=== PATIENT | female | born 1935 | race Caucasian/White ===

== ENCOUNTER 2016-04-12 01:43 | Inpatient (IN) | payer MEDICARE ==
[2016-04-12] VITALS (13 sets, daily range): BP systolic 107–156; BP diastolic 51–77; PULSE 81–100; RESP 12–20; TEMP 96.8–98.6; O2SAT 88–100
[~2016-04-12 01:43] MED LIST: AMIO200 PO; ESCI10TA PO; HYDR12.56 PO; K-TA10TA5 PO; LANO0.1212 PO; LEVO.15 PO; OMEP20TA PO; SIMV40TA PO; SOMA250T PO; SUCR1S PO; TEMA15CA PO; ULTR50TA PO; WARF-60 PO
[2016-04-12] MEDS ORDERED: TEMA30CA PO (02:24)
[2016-04-12] MEDS ORDERED: AMIO0.1T PO (02:24)
[2016-04-12] MEDS ORDERED: TRAM50TA PO (02:24)
[2016-04-12] MEDS ORDERED: ESCI20TA PO (02:24)
[2016-04-12] MEDS ORDERED: POTA10CA PO (02:24)
[2016-04-12] MEDS ORDERED: DIGO1TAB59 PO (02:24)
[2016-04-12] MEDS ORDERED: WARF-23 PO (02:24)
[2016-04-12] MEDS ORDERED: SIMV40TA PO (02:24)
[2016-04-12] MEDS ORDERED: SOMA350T PO ×2 (02:24)
[2016-04-12] MEDS ORDERED: LEVO.15 PO (02:24)
[2016-04-12] MEDS ORDERED: OMEP20TA PO (02:24)
[2016-04-12] MEDS ORDERED: SUCR1TAB PO (02:24)
[2016-04-12] MEDS ORDERED: WARF4TAB52 PO (02:24)
[2016-04-12] MEDS ORDERED: SODIUM CHLORIDE 0.9% FLUSH 5 ML FLUSH IVF PRN (02:45)
--- NOTE | 2016-04-12 03:14 | RADRPT ---
EXAM DATE/TIME: 04/12/2016 02:57 [facility] COMPARISON: CHEST SINGLE AP, March 17, 2013, 11:04. INDICATIONS : Chest pain. MEDICAL HISTORY : None. SURGICAL HISTORY : None. ENCOUNTER: Initial ACUITY: 1 day PAIN SCORE: 4/10 LOCATION: chest FINDINGS: A single view of the chest demonstrates the lungs to be symmetrically aerated without evidence of mas s, infiltrate or effusion. The cardiomediastinal contours are unremarkable. Opacity in the retrocar diac region midline characteristic of a hiatus hernia, stable. Vertebroplasty cement at 2 levels in the thoracolumbar region.. CONCLUSION: The lungs are clear. Davion Elias MD on April 12, 2016 at 3:12 Board Certified Radiologist. This report was verified electronically.
[2016-04-12 03:28] LABS: AUTOMATED NEUTROPHIL # 6.9 TH/MM3 (1.8-7.7); BASOPHIL % 0.2 % (0.0-2.0); EOSINOPHIL # 0.1 TH/MM3 (0-0.4); EOSINOPHIL % 0.5 % (0.0-4.0); LYMPH % 21.4 % (9.0-44.0); LYMPHOCYTE # 2.2 TH/MM3 (1.0-4.8); MEAN CELL VOLUME 87.4 FL (80.0-100.0); MEAN CORPUSCULAR HEMOGLOBIN 29.5 PG (27.0-34.0); MEAN CORPUSCULAR HGB CONC 33.7 % (32.0-36.0); MONO % 11.4 % (0.0-8.0); NEUT % 66.5 % (16.0-70.0); PLATELET COUNT 297 TH/MM3 (150-450); RED BLOOD COUNT 3.09 MIL/MM3 (4.00-5.30); RED CELL DISTRIBUTION WIDTH 15.3 % (11.6-17.2); WHITE BLOOD COUNT 10.4 TH/MM3 (4.0-11.0)
[2016-04-12 03:30] LABS: HEMO FLAGS AUTO DIFF
[2016-04-12 03:40] LABS: APTT (PATIENT) 49.7 SEC (24.3-30.1); PROTHROMBIN TIME - PATIENT 46.4 SEC (9.8-11.6)
[2016-04-12 03:55] LABS: ALKALINE PHOSPHATASE 57 U/L (45-117); CREATINE KINASE 489 U/L (26-192); TOTAL BILIRUBIN ADULT 0.6 MG/DL (0.2-1.0)
[2016-04-12 03:58] LABS: BLOOD, URINE NEG (NEG); COMMENT (UR) CATH-CULT NOT IND; CULTURE IF INDICATED CATH CULTURE NOT IND; GLUCOSE,URINE NEG (NEG); KETONE, URINE NEG (NEG); NITRITE,URINE NEG (NEG); URINE COLOR YELLOW (YELLW/STRAW)
[2016-04-12 03:59] LABS: ACETAMINOPHEN LESS THAN 2.0 MCG/ML (10.0-30.0); ALT (GPT) 34 U/L (10-53); ANION GAP 8 MEQ/L (5-15); AST (GOT) 42 U/L (15-37); BICARBONATE 23.9 MEQ/L (21.0-32.0); BLOOD UREA NITROGEN 12 MG/DL (7-18); CHLORIDE 99 MEQ/L (98-107); GLOMERULAR FILTRATION RATE 77 ML/MIN (>89); SODIUM (NA) 131 MEQ/L (136-145)
[2016-04-12 04:00] LABS: BANDS 5 % (0-6); DOHLE BODIES PRESENT (NONE SEEN); METAMYELOCYTES 7 % (0-1); NEUTROPHIL # MANUAL DIFF 7.7 TH/MM3 (1.8-7.7); PLATELET ESTIMATE SMEAR NORMAL (NORMAL); PLATELET MORPHOLOGY NORMAL (NORMAL); POLYS (SEG NEUTROPHILS) 62 % (16-70); SCAN/DIFF FINAL DIFF MANUAL; TOXIC GRANULATION 1+ (NORMAL); WBC DIFF SAMPLE 100
[2016-04-12 04:01] LABS: AMPHETAMINE, URINE NEG (NEG); BARBITURATES, URINE NEG (NEG); COCAINE, URINE NEG (NEG)
[2016-04-12 04:02] LABS: POTASSIUM 3.7 MEQ/L (3.5-5.1)
[2016-04-12 04:07] LABS: CKMB 1.1 NG/ML (0.5-3.6)
--- NOTE | 2016-04-12 04:34 | PD ---
HPI Chief Complaint: Cold / Flu Symptoms Time Seen by Provider: 02:45 Travel History International Travel<30 days: No Contact w/Intl Traveler<30days: No Traveled to known affect area: No History of Present Illness HPI 80-year-old female arrives with son. She has been less active than normal for the past 2 weeks or so. Patient has had cough and congestion since . She fell earlier in the evening. No loss of consciousness occurred. No injury occurred on account of a fall that the patient can recall or the son can recall. She states she has been eating less lately however has been drinking more than normal. PFSH Past Medical History Arthritis: Yes Blood Disorders: No Heart Rhythm Problems: Yes (IRREGULAR) Cancer: No Cardiovascular Problems: Yes (Cardiac arrhythmia; CAD;PVD) High Cholesterol: Yes COPD: Yes Diabetes: No Diminished Hearing: No Endocrine: No Gastrointestinal Disorders: Yes GERD: Yes Genitourinary: No Headaches: Yes Hepatitis: No Hiatal Hernia: Yes Hypertension: Yes Immune Disorder: No Neurologic: No Psychiatric: No Reproductive: No Respiratory: Yes ?: Not Menopausal: Yes Past Surgical History Abdominal Surgery: Yes (appendectomy; surgical intervention for small bowel osbstruction) AICD: No Arteriovenous Shunt: No Body Medical Devices: LEFT BREAST LUMPECTOMY Eye Surgery: Yes (bilateral cataract removal) Gynecologic Surgery: Yes (partial hysterectomy) Hysterectomy: Yes (PARTIAL) Insulin Pump: No Joint Replacement: No Pacemaker: No Thoracic Surgery: Yes (T11 KYPHOPLASTY) Other Surgery: Yes (LEFT CORATID ENDARECHTOMY) Social History Alcohol Use: No Tobacco Use: Yes (1/2 PPD) Substance Use: No Allergies-Medications (Allergen,Severity, Reaction): Coded Allergies: Adhesives (Verified Allergy, Severe, 04/12/16) Codeine (Verified Allergy, Severe, N/V, 04/12/16) Darvon (Unverified Allergy, Severe, NASUSEA VOMITING, 04/12/16) Latex (Verified Allergy, Severe, 04/12/16) Hydrocodone (Unverified Allergy, Intermediate, NAUSEA, 04/12/16) Uncoded Allergies: HYDROCODONE (Adverse Reaction, Intermediate, 11/20/10) Reported Meds & Prescriptions Reported Meds & Active Scripts Active Reported Soma (Carisoprodol) 350 Mg Tab 175 Mg PO HS Soma (Carisoprodol) 350 Mg Tab 350 Mg PO BID PRN Tramadol (Tramadol HCl) 50 Mg Tab 50 Mg PO Q6H PRN Warfarin 1 Mg Tab 1 Mg PO SAT AND SUN Warfarin 5 Mg Tab 5 Mg PO MWF Temazepam 30 Mg Cap 30 Mg PO HS PRN Escitalopram (Escitalopram Oxalate) 20 Mg Tab 20 Mg PO DAILY Amiodarone (Amiodarone HCl) 100 Mg Tab 100 Mg PO DAILY Simvastatin 40 Mg Tab 40 Mg PO HS Synthroid (Levothyroxine Sodium) 150 Mcg Tab 150 Mcg PO DAILY Digitek (Digoxin) 0.125 Mg Tab 0.125 Mg PO DAILY Omeprazole 20 Mg Tab 20 Mg PO BID Sucralfate 1 Gm Tab 1 Gm PO BID on empty stomach Potassium Chloride ER (Potassium Chloride) 10 Meq Cap 10 Meq PO TID Review of Systems Except as stated in HPI: all other systems reviewed are Neg Physical Exam Narrative GENERAL: 80-year-old female pleasant SKIN: Warm and dry. HEAD: Atraumatic. Normocephalic. EYES: Pupils equal and round. No scleral icterus. No injection or drainage. ENT: No nasal bleeding or discharge. Mucous membranes pink and moist. NECK: Trachea midline. No JVD. CARDIOVASCULAR: Regular rate and rhythm. No murmur appreciated. RESPIRATORY: No accessory muscle use. Clear to auscultation. Breath sounds equal bilaterally. GASTROINTESTINAL: Abdomen soft, non-tender, nondistended. Hepatic and splenic margins not palpable. MUSCULOSKELETAL: No obvious deformities. No clubbing. No cyanosis. No edema. NEUROLOGICAL: Awake and alert. No obvious cranial nerve deficits. Motor grossly within normal limits. Normal speech. PSYCHIATRIC: Appropriate mood and affect; insight and judgment normal. Data Data Last Documented VS Vital Signs Date Time Temp Pulse Resp B/P Pulse Ox O2 Delivery O2 Flow Rate FiO2 04/12/16 03:11 98 Nasal Cannula 2 04/12/16 02:25 18 04/12/16 02:15 90 04/12/16 02:08 97.7 110/51 Orders Electrocardiogram (04/12/16 02:45) Complete Blood Count With Diff (04/12/16 02:45) Comprehensive Metabolic Panel (04/12/16 02:45) Creatine Kinase (Cpk) (04/12/16 02:45) Drug Screen, Random Urine (04/12/16 02:45) Prothrombin Time / Inr (Pt) (04/12/16 02:45) Act Partial Throm Time (Ptt) (04/12/16 02:45) Troponin I (04/12/16 02:45) Tylenol (Acetaminophen) (04/12/16 02:45) Thyroid Stimulating Hormone (04/12/16 02:45) Urinalysis - C+S If Indicated (04/12/16 02:45) Chest, Single Ap (04/12/16 02:45) Blood Glucose (04/12/16 02:45) Ecg Monitoring (04/12/16 02:45) Iv Access Insert/Monitor (04/12/16 02:45) Oximetry (04/12/16 02:45) Urinary Catheter Insert/Apply (04/12/16 02:45) Sodium Chloride 0.9% Flush (Ns Flush) (04/12/16 02:45) CKMB (04/12/16 02:18) CKMB% (04/12/16 02:18) Admit Order (Ed Use Only) (04/12/16 04:45) Labs Laboratory Tests Test 04/12/16 04/12/16 02:18 03:32 White Blood Count 10.4 TH/MM3 Red Blood Count 3.09 MIL/MM3 Hemoglobin 9.1 GM/DL Hematocrit 27.0 % Mean Corpuscular Volume 87.4 FL Mean Corpuscular Hemoglobin 29.5 PG Mean Corpuscular Hemoglobin 33.7 % Concent Red Cell Distribution Width 15.3 % Platelet Count 297 TH/MM3 Mean Platelet Volume 7.3 FL Neutrophils (%) (Auto) 66.5 % Lymphocytes (%) (Auto) 21.4 % Monocytes (%) (Auto) 11.4 % Eosinophils (%) (Auto) 0.5 % Basophils (%) (Auto) 0.2 % Neutrophils # (Auto) 6.9 TH/MM3 Lymphocytes # (Auto) 2.2 TH/MM3 Monocytes # (Auto) 1.2 TH/MM3 Eosinophils # (Auto) 0.1 TH/MM3 Basophils # (Auto) 0.0 TH/MM3 CBC Comment AUTO DIFF Differential Total Cells 100 Counted Neutrophils % (Manual) 62 % Band Neutrophils % 5 % Lymphocytes % 15 % Monocytes % 11 % Neutrophils # (Manual) 7.7 TH/MM3 Metamyelocytes 7 % Differential Comment FINAL DIFF MANUAL Toxic Granulation 1+ Dohle Bodies PRESENT Platelet Estimate NORMAL Platelet Morphology Comment NORMAL Prothrombin Time 46.4 SEC Prothromb Time International 4.0 RATIO Ratio Activated Partial 49.7 SEC Thromboplast Time Sodium Level 131 MEQ/L Potassium Level 3.7 MEQ/L Chloride Level 99 MEQ/L Carbon Dioxide Level 23.9 MEQ/L Anion Gap 8 MEQ/L Blood Urea Nitrogen 12 MG/DL Creatinine 0.73 MG/DL Estimat Glomerular Filtration 77 ML/MIN Rate Random Glucose 108 MG/DL Calcium Level 7.5 MG/DL Total Bilirubin 0.6 MG/DL Aspartate Amino Transf 42 U/L (AST/SGOT) Alanine Aminotransferase 34 U/L (ALT/SGPT) Alkaline Phosphatase 57 U/L Total Creatine Kinase 489 U/L Creatine Kinase MB 1.1 NG/ML Creatine Kinase MB % 0.2 % Troponin I LESS THAN 0.02 NG/ML Total Protein 6.0 GM/DL Albumin 2.7 GM/DL Thyroid Stimulating Hormone 2.480 uIU/ML 3rd Gen Acetaminophen Level LESS THAN 2.0 MCG/ML Urine Color YELLOW Urine Turbidity CLEAR Urine pH 6.0 Urine Specific [place] 1.009 Urine Protein NEG mg/dL Urine Glucose (UA) NEG mg/dL Urine Ketones NEG mg/dL Urine Occult Blood NEG Urine Nitrite NEG Urine Bilirubin NEG Urine Urobilinogen LESS THAN 2.0 MG/DL Urine Leukocyte Esterase NEG Urine RBC LESS THAN 1 /hpf Urine WBC 1 /hpf Microscopic Urinalysis Comment CATH-CULT NOT IND Urine Opiates Screen NEG Urine Barbiturates Screen NEG Urine Amphetamines Screen NEG Urine Benzodiazepines Screen POS Urine Cocaine Screen NEG Urine Cannabinoids Screen NEG MDM Medical Decision Making Medical Screen Exam Complete: Yes Emergency Medical Condition: Yes Medical Record Reviewed: Yes Differential Diagnosis Infection, metabolic abnormality, anemia, polypharmacy Narrative Course CBC & BMP Diagram 04/12/16 02:18 LFTs are essentially normal Troponin is less than 0.02 TSH is 2.48 Toxicology positive for benzodiazepines Urinalysis shows no UTI INR 4.0 Patient will be admitted for monitoring and for physical therapy evaluation. Discussed with Dr. Hopkins. Diagnosis Primary Impression: Polypharmacy Additional Impression: Benzodiazepine intoxication Additional Instructions: You have a choice when it comes to health care, and we are glad that you chose [facility]. Hopefully, we have met your expectations on today's visit. You are welcome to return to [facility] at any time, as we are committed to meeting the health care needs of our community. A thorough workup has been performed and there is no gross abnormality. Disposition: 01 DISCHARGE HOME Condition: Stable Sohan Vital MD Apr 12, 2016 04:34
[2016-04-12] MEDS ORDERED: ACETAMINOPHEN 325 MG TAB PO PRN (06:00)
[2016-04-12] MEDS ORDERED: CARISOPRODOL 350 MG TAB PO PRN (06:00)
[2016-04-12] MEDS ORDERED: MAGNESIUM HYDROXIDE SUSP 30 ML CUP PO PRN (06:00)
[2016-04-12] MEDS ORDERED: SENNOSIDES 8.6 MG TAB PO PRN (06:00)
[2016-04-12] MEDS ORDERED: BISACODYL 10 MG SUPP PR PRN (06:00)
[2016-04-12] MEDS ORDERED: SODIUM CHLORIDE 0.9% FLUSH 5 ML FLUSH FLUSH PRN (06:00)
[2016-04-12] MEDS ORDERED: ONDANSETRON HCL 4 MG/2 ML VIAL IVP PRN (06:00)
[2016-04-12] MEDS ORDERED: PROCHLORPERAZINE 25 MG SUPP PR PRN (06:00)
[2016-04-12] MEDS ORDERED: RESP: ALBUTEROL 0.63 MG/3 ML NEB (PRN) NEB (08:30)
[2016-04-12] MEDS: SODIUM CHLORIDE 0.9% FLUSH 5 ML FLUSH FLUSH SCH ×2 (08:41→20:29)
[2016-04-12 09:24] LABS: DIGOXIN 1.8 NG/ML (0.8-2.0)
--- NOTE | 2016-04-12 09:42 | HHI.HP ---
[facility] Service [facility] Primary Care Physician Hipolito Cadena M.D. Admission Diagnosis Generalized Weakness Diagnoses: Chief Complaint: Fall Travel History International Travel<30 Days: No Contact w/Intl Traveler <30 Da: No Traveled to Known Affected Are: No History of Present Illness 80-year-old female with past medical history of HLD, A. fib, GERD, hypothyroidism, chronic back pain who presented after a fall. The patient states she presented because yesterday she fell trying to transfer from her hospital at home to the bedside commode. She states she lost her balance. She denies any associated dizziness or associated symptoms prior to the fall. She denies any acute injury. She does state that she has chronic back pain. She states that for the past 2 weeks she's been having cough with intermittent fevers. She states the cough is dry. She denies any shortness of breath. She states that she's been on Cipro for the past 4 or 5 days. She denies any bleeding, dark or bloody stools. She denies any nausea, headache, unilateral weakness, or swallowing difficulties. She lives at home with her who helps take care of her. Review of Systems Other 10 point review of systems performed and was negative except as stated in the history of present illness Past Family Social History Past Medical History Hyperlipidemia GERD Atrial fibrillation Hypothyroidism Chronic back pain Depression Past Surgical History Bilateral knee replacement Partial hysterectomy Ex lap for SBO Left carotid endarterectomy Appendectomy Left breast lumpectomy T11 kyphoplasty EGD/colonoscopy Reported Medications Soma (Carisoprodol) 350 Mg Tab 175 Mg PO HS Soma (Carisoprodol) 350 Mg Tab 350 Mg PO BID PRN Tramadol (Tramadol HCl) 50 Mg Tab 50 Mg PO Q6H PRN Warfarin 1 Mg Tab 1 Mg PO SAT AND SUN Warfarin 5 Mg Tab 5 Mg PO MWF Temazepam 30 Mg Cap 30 Mg PO HS PRN Escitalopram (Escitalopram Oxalate) 20 Mg Tab 20 Mg PO DAILY Amiodarone (Amiodarone HCl) 100 Mg Tab 100 Mg PO DAILY Simvastatin 40 Mg Tab 40 Mg PO HS Synthroid (Levothyroxine Sodium) 150 Mcg Tab 150 Mcg PO DAILY Digitek (Digoxin) 0.125 Mg Tab 0.125 Mg PO DAILY Omeprazole 20 Mg Tab 20 Mg PO BID Sucralfate 1 Gm Tab 1 Gm PO BID on empty stomach Potassium Chloride ER (Potassium Chloride) 10 Meq Cap 10 Meq PO TID Allergies: Coded Allergies: Adhesives (Verified Allergy, Severe, 04/12/16) Codeine (Verified Allergy, Severe, N/V, 04/12/16) Darvon (Unverified Allergy, Severe, NASUSEA VOMITING, 04/12/16) Latex (Verified Allergy, Severe, 04/12/16) Hydrocodone (Unverified Allergy, Intermediate, NAUSEA, 04/12/16) Uncoded Allergies: HYDROCODONE (Adverse Reaction, Intermediate, 11/20/10) Active Ordered Medications Current Medications Medications (Trade) Dose Ordered Sig/Tess Route Start Time Stop Time Status Last Admin (Cordarone) 100 mg DAILY PO 04/12/16 09:00 (Soma) 175 mg HS PO 04/12/16 21:00 (Soma) 350 mg BID PRN PO 04/12/16 06:00 (Lanoxin) 0.125 mg DAILY PO 04/12/16 09:00 (Lexapro) 20 mg DAILY PO 04/12/16 09:00 (Synthroid) 150 mcg DAILY PO 04/12/16 09:00 (Protonix) 20 mg BID PO 04/12/16 09:00 (KCl) 10 meq TID PO 04/12/16 09:00 (Carafate) 1 gm BID PO 04/12/16 09:00 (Restoril) 30 mg HS PRN PO 04/12/16 06:00 (Ultram) 50 mg Q6H PRN PO 04/12/16 06:00 (Pravachol) 80 mg HS PO 04/12/16 21:00 (NS Flush) 2 ml UNSCH PRN FLUSH 04/12/16 06:00 (NS Flush) 2 ml BID FLUSH 04/12/16 09:00 04/12/16 08:41 (Tylenol) 650 mg Q4H PRN PO 04/12/16 06:00 (Zofran Inj) 4 mg Q6H PRN IVP 04/12/16 06:00 (Compazine Supp) 25 mg Q12H PRN MA 04/12/16 06:00 (Dulcolax Supp) 10 mg DAILY PRN MA 04/12/16 06:00 (Milk Of Paty Liq) 30 ml Q12H PRN PO 04/12/16 06:00 Sennosides 17.2 mg 17.2 mg Q12H PRN PO 04/12/16 06:00 (Coumadin Consult Pharmacy) 0 ml @ 0 mls/hr UNSCH OTHER 04/12/16 08:30 Family History Mother had a stroke Social History Continues to smoke Denies any alcohol use. Lives at home with her Physical Exam Vital Signs Vital Signs Date Time Temp Pulse Resp B/P Pulse Ox O2 Delivery O2 Flow Rate FiO2 04/12/16 07:00 89 12 107/58 96 Room Air 04/12/16 03:11 98 Nasal Cannula 2 04/12/16 02:25 18 88 Room Air 04/12/16 02:15 90 16 04/12/16 02:08 97.7 86 16 110/51 92 Physical Exam GENERAL: Well-developed well-nourished. In no acute distress. SKIN: Warm and dry. Consider empiric ecchymosis. Scab on the right knee. HEENT: Normocephalic. Pupils equal and round. Mucous membranes pink and moist. CARDIOVASCULAR: Regular rate and rhythm. No murmur appreciated. RESPIRATORY: No accessory muscle use. Clear to auscultation. Rhonchi present, left worse than right. GASTROINTESTINAL: Abdomen with tender mass in the LLQ. Bowel sounds x4. MUSCULOSKELETAL: No obvious deformities. No spinal TTP or palpable bony abnormalities. No clubbing or cyanosis. No edema. NEUROLOGICAL: Awake and alert. No focal neurological deficits. Moves upper and lower extremities spontaneously. Normal speech. PSYCHIATRIC: Appropriate mood and affect; insight and judgment normal. Laboratory Laboratory Tests Test 04/12/16 04/12/16 02:18 03:32 White Blood Count 10.4 Red Blood Count 3.09 Hemoglobin 9.1 Hematocrit 27.0 Mean Corpuscular Volume 87.4 Mean Corpuscular Hemoglobin 29.5 Mean Corpuscular Hemoglobin 33.7 Concent Red Cell Distribution Width 15.3 Platelet Count 297 Mean Platelet Volume 7.3 Neutrophils (%) (Auto) 66.5 Lymphocytes (%) (Auto) 21.4 Monocytes (%) (Auto) 11.4 Eosinophils (%) (Auto) 0.5 Basophils (%) (Auto) 0.2 Neutrophils # (Auto) 6.9 Lymphocytes # (Auto) 2.2 Monocytes # (Auto) 1.2 Eosinophils # (Auto) 0.1 Basophils # (Auto) 0.0 CBC Comment AUTO DIFF Differential Total Cells 100 Counted Neutrophils % (Manual) 62 Band Neutrophils % 5 Lymphocytes % 15 Monocytes % 11 Neutrophils # (Manual) 7.7 Metamyelocytes 7 Differential Comment FINAL DIFF MANUAL Toxic Granulation 1+ Dohle Bodies PRESENT Platelet Estimate NORMAL Platelet Morphology Comment NORMAL Prothrombin Time 46.4 Prothromb Time International 4.0 Ratio Activated Partial 49.7 Thromboplast Time Sodium Level 131 Potassium Level 3.7 Chloride Level 99 Carbon Dioxide Level 23.9 Anion Gap 8 Blood Urea Nitrogen 12 Creatinine 0.73 Estimat Glomerular Filtration 77 Rate Random Glucose 108 Calcium Level 7.5 Ferritin 276 Total Bilirubin 0.6 Aspartate Amino Transf 42 (AST/SGOT) Alanine Aminotransferase 34 (ALT/SGPT) Alkaline Phosphatase 57 Total Creatine Kinase 489 Creatine Kinase MB 1.1 Creatine Kinase MB % 0.2 Troponin I LESS THAN 0.02 Total Protein 6.0 Albumin 2.7 Thyroid Stimulating Hormone 2.480 3rd Gen Digoxin Level 1.8 Acetaminophen Level LESS THAN 2.0 Urine Color YELLOW Urine Turbidity CLEAR Urine pH 6.0 Urine Specific [place] 1.009 Urine Protein NEG Urine Glucose (UA) NEG Urine Ketones NEG Urine Occult Blood NEG Urine Nitrite NEG Urine Bilirubin NEG Urine Urobilinogen LESS THAN 2.0 Urine Leukocyte Esterase NEG Urine RBC LESS THAN 1 Urine WBC 1 Microscopic Urinalysis Comment CATH-CULT NOT IND Urine Opiates Screen NEG Urine Barbiturates Screen NEG Urine Amphetamines Screen NEG Urine Benzodiazepines Screen POS Urine Cocaine Screen NEG Urine Cannabinoids Screen NEG Result Diagram: 04/12/1621704/12/16217 Imaging Last Impressions Chest X-Ray 04/12/16244 Signed Impressions: Service Date/Time: Tuesday, April 12, 2016 02:57 - CONCLUSION: The lungs are clear. Davion Elias MD Assessment and Plan Problem List: (1) Impaired mobility and ADLs ICD Code: Z74.09 Status: Acute (2) History of cardiac arrhythmia ICD Code: Z86.79 Status: Chronic (3) GERD (gastroesophageal reflux disease) ICD Code: K21.9 Status: Chronic (4) Tobacco abuse ICD Code: Z72.0 Status: Chronic (5) Hypercholesterolemia ICD Code: E78.0 Status: Chronic (6) Insomnia ICD Code: G47.00 Status: Chronic Assessment and Plan 80-year-old female with past medical history of HLD, A. fib, GERD, hypothyroidism, chronic back pain who presented after a fall Generalized weakness and falls: Patient reports multiple falls recently. Unclear etiology, possibly multifactorial from deconditioning with also an underlying medical etiology. Labs reviewed, hemoglobin slightly decreased. Hyponatremia appears chronic. INR is high. Episode of hypoxia overnight. No signs of infectious etiology on labs, UA, or chest x-ray. Check digoxin, level therapeutic. -PT eval. -Anemia workup as below -Fall precautions Acute anemia Hemoglobin 9.1, previously 10.8 on 03/18/13. INR supratherapeutic. -Check stool for Hemoccult -Check ferritin and iron studies -Monitor H&H -Hold Coumadin for now Hypoxia, likely underlying COPD Episode of oxygen saturation 88% on room air overnight. Acute respiratory failure. Chest x-ray reviewed and unremarkable. Possibly secondary to anemia as above versus chronic COPD. No wheezing on exam, unlikely COPD exacerbation. Currently satting well on room air. -Treating anemia as above -O2 and nebs as needed -Tobacco cessation LLQ tender mass Seen on exam. Also with some suprapubic ecchymosis on exam from fall. Would need to rule out hematoma with supratherapeutic INR and fall. -Check CT abdomen and pelvis Coagulopathy INR 4.0. INR likely increased from being on Cipro recently. -Consider reversing Coumadin. Atrial fibrillation -Hold Coumadin with supratherapeutic INR -Continue amiodarone Other chronic medical conditions include hypothyroidism, chronic back pain, GERD , hyperlipidemia, insomnia, depression: Stable at this time and will continue home medications as indicated. DVT prophylaxis: On Coumadin with supratherapeutic INR Written by Alphonso Jones, acting as scribe for Dr. Mendoza on 04/12/16 at 09:42. The documentation accurately reflects the work performed [id number] by me on at 0942 Code Status Full Discussed Condition With Patient Problem Qualifiers (1) GERD (gastroesophageal reflux disease): Qualified Code: K21.9 - Gastroesophageal reflux disease, esophagitis presence not specified (2) Insomnia: Qualified Code: G47.00 - Insomnia, unspecified type Alphonso Jones Apr 12, 2016 09:42 Sin Mendoza MD Apr 12, 2016 16:56
[2016-04-12] MEDS: AMIODARONE 200 MG TAB PO SCH (09:44)
[2016-04-12] MEDS: DIGOXIN 0.125 MG TAB PO SCH (09:44)
[2016-04-12] MEDS: POTASSIUM CHLORIDE 10 MEQ CAP PO SCH ×3 (09:44→18:08)
[2016-04-12] MEDS: PANTOPRAZOLE SOD 20 MG DELAYED RELEASE TAB PO SCH ×2 (09:44→20:23)
[2016-04-12] MEDS: LEVOTHYROXINE SODIUM 150 MCG TAB PO SCH (09:44)
[2016-04-12] MEDS: ESCITALOPRAM OXALATE 20 MG TAB PO SCH (09:44)
[2016-04-12] MEDS: SUCRALFATE 1 GM TAB PO SCH ×2 (09:44→20:22)
[2016-04-12] MEDS ORDERED: DIATRIZOATE MEGLUM/DIATRIZOATE SOD 9 ML CUP ONE (09:55)
[2016-04-12] MEDS ORDERED: DIATRIZOATE MEGLUM/DIATRIZOATE SOD 9 ML CUP PO ONE (10:15)
[2016-04-12] MEDS ORDERED: IOHEXOL 300 MG/ML 100 ML BTL (for Rad CT) IV ONE (12:44)
--- NOTE | 2016-04-12 13:07 | RADRPT ---
EXAM DATE/TIME: 04/12/2016 12:34 [facility] COMPARISON: No previous studies available for comparison. INDICATIONS: Fall, left lower quadrant pain - evaluate for mass. IV CONTRAST: 70 cc Omnipaque 300 (iohexol) IV ORAL CONTRAST: Prescribed oral contrast ingested. RADIATION DOSE: 4.96 CTDIvol (mGy) MEDICAL HISTORY: Hypertension. Cardiovascular disease Hernia, hiatal. SURGICAL HISTORY: Hysterectomy. Kyphoplasty. ENCOUNTER: Initial ACUITY: 1 day PAIN SCALE: 3/10 LOCATION: Left lower quadrant Abdomen TECHNIQUE: Volumetric scanning of the abdomen and pelvis was performed. Using automated exposure control and ad justment of the mA and/or kV according to patient size, radiation dose was kept as low as reasonably achievable to obtain optimal diagnostic quality images. FINDINGS: There is a large hiatal hernia evident. Minimal bibasilar parenchymal changes are noted. liver, spl een, pancreas and adrenals are unremarkable. Patient has marked scoliosis. There is mass in the rectus that could easily be a large rectus hematoma. This extends into the ilio psoas as well and measures 5.6 cm. This mass is displacing the bladder. There is no associated fracture. CONCLUSION: Presumed rectus hematoma with iliopsoas hematoma on the left. Flynn Rodriguez MD FACR on April 12, 2016 at 12:55 Board Certified Radiologist. This report was verified electronically.
[2016-04-12] MEDS ORDERED: SODIUM CHLOR 0.9% 250 ML INJ 250 ML IV ONE (14:00)
[2016-04-12 14:37] LABS: HEMATOCRIT 24.6 % (35.0-46.0); REVIEW FLAG FINAL
--- NOTE | 2016-04-12 14:41 | EKG ---
Date Performed: 04/12/2016 Time Performed: 03:20:26 PTAGE: 80 years EKG: Sinus rhythm WITH FIRST DEGREE AV BLOCK NONSPECIFIC ST & T-WAVE ABNORMALITY ABNORMAL ECG PREVIOUS TRACING : 03/17/2013 11.21 Since previous tracing, no significant change noted DOCTOR: Ashlyn Crane Interpretating Date/Time 04/12/2016 14:36:26
[2016-04-12 16:36] LABS: HEMATOCRIT 24.3 % (35.0-46.0); REVIEW FLAG FINAL
[2016-04-12] MEDS: PRAVASTATIN SOD 80 MG TAB PO SCH (20:22)
[2016-04-12] MEDS: CARISOPRODOL 350 MG TAB PO SCH (20:23)
[2016-04-12 21:31] LABS: HEMATOCRIT 21.3 % (35.0-46.0); REVIEW FLAG FINAL
[2016-04-12] MEDS: TEMAZEPAM 15 MG CAP PO PRN (22:40)
[2016-04-13] VITALS (17 sets, daily range): BP systolic 96–146; BP diastolic 48–72; PULSE 74–96; RESP 16–20; TEMP 96.1–97.8; O2SAT 92–100
[2016-04-13 03:09] LABS: AUTOMATED NEUTROPHIL # 15.4 TH/MM3 (1.8-7.7); BASOPHIL % 0.1 % (0.0-2.0); LYMPH % 2.5 % (9.0-44.0); LYMPHOCYTE # 0.4 TH/MM3 (1.0-4.8); MEAN CELL VOLUME 84.7 FL (80.0-100.0); MEAN CORPUSCULAR HEMOGLOBIN 29.1 PG (27.0-34.0); MEAN CORPUSCULAR HGB CONC 34.3 % (32.0-36.0); NEUT % 90.4 % (16.0-70.0); PLATELET COUNT 290 TH/MM3 (150-450); RED BLOOD COUNT 2.19 MIL/MM3 (4.00-5.30); RED CELL DISTRIBUTION WIDTH 15.3 % (11.6-17.2)
[2016-04-13 03:12] LABS: HEMO FLAGS DIFF FINAL
[2016-04-13 03:14] LABS: HEMATOCRIT 18.6 % (35.0-46.0)
[2016-04-13 03:15] LABS: INTERNATIONAL NORMALIZED RATIO 1.6 RATIO; PROTHROMBIN TIME - PATIENT 18.4 SEC (9.8-11.6)
[2016-04-13 03:18] LABS: ANION GAP 6 MEQ/L (5-15); BICARBONATE 26.8 MEQ/L (21.0-32.0); BLOOD UREA NITROGEN 13 MG/DL (7-18); CHLORIDE 102 MEQ/L (98-107); GLOMERULAR FILTRATION RATE 88 ML/MIN (>89); POTASSIUM 4.5 MEQ/L (3.5-5.1); SODIUM (NA) 135 MEQ/L (136-145); TRANSFERRIN IRON PROFILE 173 MG/DL (200-360)
[2016-04-13] MEDS ORDERED: FUROSEMIDE 20 MG/2 ML VIAL IV ONE (03:45)
[2016-04-13] MEDS ORDERED: SODIUM CHLOR 0.9% 250 ML INJ 250 ML IV ONE (03:45)
[2016-04-13] MEDS: FERROUS SULFATE 325 MG (65 MG ELEMENTAL IRON) TAB PO SCH ×2 (09:54→21:00)
[2016-04-13] MEDS: LEVOTHYROXINE SODIUM 150 MCG TAB PO SCH (09:54)
[2016-04-13] MEDS: DIGOXIN 0.125 MG TAB PO SCH (09:55)
[2016-04-13] MEDS: AMIODARONE 200 MG TAB PO SCH (09:55)
[2016-04-13] MEDS: PANTOPRAZOLE SOD 20 MG DELAYED RELEASE TAB PO SCH ×2 (09:55→22:15)
[2016-04-13] MEDS: SUCRALFATE 1 GM TAB PO SCH ×2 (09:55→22:14)
[2016-04-13] MEDS: ESCITALOPRAM OXALATE 20 MG TAB PO SCH (09:55)
[2016-04-13] MEDS: SODIUM CHLORIDE 0.9% FLUSH 5 ML FLUSH FLUSH SCH ×2 (09:56→21:00)
[2016-04-13] MEDS: traMADol HCL 50 MG TAB PO PRN ×2 (10:10→22:25)
[2016-04-13] MEDS: POTASSIUM CHLORIDE 10 MEQ CAP PO SCH ×3 (10:11→18:48)
[2016-04-13 10:15] LABS: REVIEW FLAG FINAL
[2016-04-13 10:17] LABS: HEMATOCRIT 18.9 % (35.0-46.0)
[2016-04-13 12:02] LABS: INTERNATIONAL NORMALIZED RATIO 1.6 RATIO; PROTHROMBIN TIME - PATIENT 18.4 SEC (9.8-11.6)
--- NOTE | 2016-04-13 13:00 | HHI.PR ---
Subjective Remarks Follow-up for fall and anemia. The patient's hemoglobin continued to decrease overnight, 2 units PRBCs ordered, not yet transfused. The patient complains of feeling weak today. She denies any dizziness. Objective Vitals Vital Signs Date Time Temp Pulse Resp B/P Pulse Ox O2 Delivery O2 Flow Rate FiO2 04/13/16 11:00 96.5 92 20 102/57 98 04/13/16 07:05 96.3 96 20 124/67 92 04/13/16 04:45 96 04/13/16 04:00 97.8 74 18 104/56 97 04/13/16 01:06 78 04/13/16 00:00 97.2 87 20 143/72 96 04/12/16 23:05 83 18 122/67 99 04/12/16 22:35 84 18 126/64 96 04/12/16 20:00 96.8 100 20 156/65 95 04/12/16 18:10 98.0 81 18 140/77 99 Nasal Cannula 3 04/12/16 16:57 98.1 86 18 138/65 99 Nasal Cannula 3 04/12/16 16:42 98.6 86 18 132/67 99 Nasal Cannula 3 04/12/16 16:00 97.8 83 18 151/69 100 Nasal Cannula 3 I/O 04/12/16 04/12/16 04/12/16 04/13/16 04/13/16 04/13/16 07:00 15:00 23:00 07:00 15:00 23:00 Intake Total 120 ml 311 ml 240 ml Output Total 400 ml Balance -400 ml 120 ml 311 ml 240 ml Intake Oral 120 ml 240 ml FFP 311 ml Output Urine Total 400 ml # Voids 0 4 Result Diagram: 04/13/16 0922 04/13/16 0245 Imaging Last Impressions Chest X-Ray 04/12/16 0245 Signed Impressions: Service Date/Time: Tuesday, April 12, 2016 02:57 - CONCLUSION: The lungs are clear. Davion Elias MD Abdomen/Pelvis CT 04/12/16 0000 Signed Impressions: Service Date/Time: Tuesday, April 12, 2016 12:34 - CONCLUSION: Presumed rectus hematoma with iliopsoas hematoma on the left. Flynn Rodriguez MD FACR Objective Remarks GENERAL: Well-developed well-nourished. In no acute distress. SKIN: Warm and dry. Suprapubic ecchymosis. HEENT: Normocephalic. Pupils equal and round. Mucous membranes pink and moist. CARDIOVASCULAR: Regular rate and rhythm. No murmur appreciated. RESPIRATORY: No accessory muscle use. Clear to auscultation. Breath sounds equal bilaterally. GASTROINTESTINAL: Abdomen with large tender nodular swelling in the LLQ, unchanged. Bowel sounds x4.. Bowel sounds x4. MUSCULOSKELETAL: No obvious deformities. No clubbing or cyanosis. No edema. NEUROLOGICAL: Awake and alert. No focal neurological deficits. Moves upper and lower extremities spontaneously. Normal speech. PSYCHIATRIC: Appropriate mood and affect; insight and judgment normal. A/P Problem List: (1) Impaired mobility and ADLs ICD Code: Z74.09 Status: Acute (2) History of cardiac arrhythmia ICD Code: Z86.79 Status: Chronic (3) GERD (gastroesophageal reflux disease) ICD Code: K21.9 Status: Chronic (4) Tobacco abuse ICD Code: Z72.0 Status: Chronic (5) Hypercholesterolemia ICD Code: E78.0 Status: Chronic (6) Insomnia ICD Code: G47.00 Status: Chronic (7) Anemia ICD Code: D64.9 Status: Acute Assessment and Plan 80-year-old female with past medical history of HLD, A. fib, GERD, hypothyroidism, chronic back pain who presented after a fall Generalized weakness and falls: Patient reports multiple falls recently. Unclear etiology, possibly multifactorial from deconditioning, rule out other underlying medical etiologies. Labs reviewed, hemoglobin slightly decreased. Hyponatremia appears chronic. INR is high. Episode of hypoxia at admission. No signs of infectious etiology on labs, UA, or chest x-ray. Digoxin level therapeutic. -PT eval, recommends [facility]. -Anemia workup as below -Fall precautions Acute blood loss anemia Hemoglobin 9.1, previously 10.8 on 03/18/13. INR supratherapeutic. Hemoglobin trended down to 6.4. Likely secondary to hematoma as below. Iron studies also showed iron deficiency. -Check stool for Hemoccult -Ordered 2 units PRBCs -Monitor H&H -Treat cryopathy as below Hypoxia, likely underlying COPD Episode of oxygen saturation 88% on room air. Acute respiratory failure. Chest x-ray reviewed and unremarkable. Possibly secondary to anemia as above versus chronic COPD. No wheezing on exam, unlikely COPD exacerbation. Currently satting well on room air. -Treating anemia as above -O2 and nebs as needed -Tobacco cessation Left rectus and iliopsoas hematoma. LLQ tender mass on exam prompted abdomen and pelvis CT. CT showed rectus hematoma and iliopsoas hematoma on the left, discussed with Dr. Rodriguez, unlikely malignancy based on history and exam. Discussed with general surgery, Dr. Leon, no operative intervention, conservative management. Consulted IR, unlikely intervention. -Supportive care and monitor Coagulopathy INR 4.0. INR likely increased from being on Cipro recently. Bleeding as above. -Given FFP, INR now 1.6 Atrial fibrillation -Hold Coumadin with bleeding as above, INR now subtherapeutic -Continue amiodarone Other chronic medical conditions include hypothyroidism, chronic back pain, GERD , hyperlipidemia, insomnia, depression: Stable at this time and will continue home medications as indicated. DVT prophylaxis: Coumadin on hold with bleeding. SCDs. Written by Alphonso Jones, acting as scribe for Dr. Mendzoa on 04/13/16 at 12:54. The documentation accurately reflects the work performed [id number] by me on at 1254 Discharge Planning Disposition pending clinical course Problem Qualifiers (1) GERD (gastroesophageal reflux disease): Qualified Code: K21.9 - Gastroesophageal reflux disease, esophagitis presence not specified (2) Insomnia: Qualified Code: G47.00 - Insomnia, unspecified type (3) Anemia: Qualified Code: D62 - Acute posthemorrhagic anemia Alphonso Jones Apr 13, 2016 13:00 Sin Mendoza MD Apr 13, 2016 16:22
[2016-04-13 18:08] LABS: REVIEW FLAG FINAL
[2016-04-13] MEDS: PRAVASTATIN SOD 80 MG TAB PO SCH (22:14)
[2016-04-13] MEDS: CARISOPRODOL 350 MG TAB PO SCH (22:16)
[2016-04-13] MEDS: TEMAZEPAM 15 MG CAP PO PRN (22:17)
[2016-04-14] VITALS (8 sets, daily range): BP systolic 122–154; BP diastolic 62–77; PULSE 71–80; RESP 14–25; TEMP 95.7–98.7; O2SAT 14–100
[2016-04-14 02:26] LABS: BASOPHIL % 0.1 % (0.0-2.0); EOSINOPHIL % 0.3 % (0.0-4.0); HEMATOCRIT 29.9 % (35.0-46.0); LYMPH % 6.5 % (9.0-44.0); LYMPHOCYTE # 1.1 TH/MM3 (1.0-4.8); MEAN CELL VOLUME 84.5 FL (80.0-100.0); MEAN CORPUSCULAR HEMOGLOBIN 28.7 PG (27.0-34.0); MEAN CORPUSCULAR HGB CONC 33.9 % (32.0-36.0); MONO % 8.2 % (0.0-8.0); NEUT % 84.9 % (16.0-70.0); PLATELET COUNT 369 TH/MM3 (150-450); RED BLOOD COUNT 3.54 MIL/MM3 (4.00-5.30); WHITE BLOOD COUNT 16.5 TH/MM3 (4.0-11.0)
[2016-04-14 02:26] LABS: HEMATOCRIT 30.1 % (35.0-46.0); REVIEW FLAG FINAL
[2016-04-14 02:27] LABS: INTERNATIONAL NORMALIZED RATIO 1.5 RATIO; PROTHROMBIN TIME - PATIENT 17.1 SEC (9.8-11.6)
[2016-04-14 02:34] LABS: BICARBONATE 30.8 MEQ/L (21.0-32.0); MAGNESIUM 1.9 MG/DL (1.5-2.5); POTASSIUM 3.8 MEQ/L (3.5-5.1)
[2016-04-14 02:36] LABS: HEMO FLAGS AUTO DIFF
[2016-04-14 03:25] LABS: KERATOCYTES OCC (NORMAL); PLATELET ESTIMATE SMEAR HIGH (NORMAL); PLATELET MORPHOLOGY NORMAL (NORMAL); SCAN/DIFF AUTO DIFF CONFIRMED; SPHEROCYTES OCC (NORMAL)
[2016-04-14 06:53] LABS: AUTOMATED NEUTROPHIL # 14.6 TH/MM3 (1.8-7.7); BASOPHIL % 0.1 % (0.0-2.0); EOSINOPHIL % 0.2 % (0.0-4.0); HEMO FLAGS DIFF FINAL; LYMPH % 5.6 % (9.0-44.0); MEAN CELL VOLUME 83.9 FL (80.0-100.0); MEAN CORPUSCULAR HEMOGLOBIN 29.3 PG (27.0-34.0); MEAN CORPUSCULAR HGB CONC 34.9 % (32.0-36.0); MONO % 8.6 % (0.0-8.0); NEUT % 85.5 % (16.0-70.0); PLATELET COUNT 378 TH/MM3 (150-450); RED BLOOD COUNT 3.34 MIL/MM3 (4.00-5.30); RED CELL DISTRIBUTION WIDTH 14.9 % (11.6-17.2); WHITE BLOOD COUNT 17.1 TH/MM3 (4.0-11.0)
[2016-04-14] MEDS: SODIUM CHLORIDE 0.9% FLUSH 5 ML FLUSH FLUSH SCH ×2 (08:21→23:41)
[2016-04-14] MEDS: POTASSIUM CHLORIDE 10 MEQ CAP PO SCH ×3 (08:23→17:22)
[2016-04-14] MEDS: traMADol HCL 50 MG TAB PO PRN (08:23)
[2016-04-14] MEDS: LEVOTHYROXINE SODIUM 150 MCG TAB PO SCH (08:24)
[2016-04-14] MEDS: ESCITALOPRAM OXALATE 20 MG TAB PO SCH (08:24)
[2016-04-14] MEDS: FERROUS SULFATE 325 MG (65 MG ELEMENTAL IRON) TAB PO SCH ×2 (08:24→23:40)
[2016-04-14] MEDS: PANTOPRAZOLE SOD 20 MG DELAYED RELEASE TAB PO SCH ×2 (08:24→23:40)
[2016-04-14] MEDS: AMIODARONE 200 MG TAB PO SCH (08:24)
[2016-04-14] MEDS: SUCRALFATE 1 GM TAB PO SCH ×2 (08:24→23:39)
[2016-04-14] MEDS: DIGOXIN 0.125 MG TAB PO SCH (08:24)
[2016-04-14] MEDS ORDERED: MAGNESIUM HYDROXIDE SUSP 30 ML CUP PO ONE (10:45)
[2016-04-14] MEDS ORDERED: AZITHROMYCIN 250 MG TAB PO ONE (10:45)
--- NOTE | 2016-04-14 10:49 | HHI.PR ---
Subjective Remarks Follow-up for fall and cough. The patient is seen with her son at bedside. The patient continues to complain of pain in her left mid back and shoulder blade since her fall. She has a history of kyphoplasty in her thoracic spine. She isn't having a nonproductive cough. She hasn't had a bowel movement since admission. Objective Vitals Vital Signs Date Time Temp Pulse Resp B/P Pulse Ox O2 Delivery O2 Flow Rate FiO2 04/14/16 07:00 77 04/14/16 07:00 95.7 77 20 136/65 99 04/14/16 04:00 97.1 80 14 154/77 100 04/14/16 00:00 97.0 71 14 134/64 14 04/13/16 20:00 96.4 83 16 146/66 98 04/13/16 19:05 97.2 85 18 124/63 100 04/13/16 15:40 96.9 86 20 129/65 100 04/13/16 14:11 97.4 86 20 115/54 100 04/13/16 13:56 96.9 83 20 129/70 100 04/13/16 13:41 97.6 76 18 107/52 100 04/13/16 13:26 97.2 77 18 102/48 100 04/13/16 13:11 96.1 78 20 96/49 96 04/13/16 12:30 98 2.00 04/13/16 11:00 96.5 92 20 102/57 98 I/O 04/13/16 04/13/16 04/13/16 04/14/16 04/14/16 04/14/16 07:00 15:00 23:00 07:00 15:00 23:00 Intake Total 240 ml 720 ml Balance 240 ml 720 ml Intake Oral 240 ml 720 ml # Voids 4 4 9 2 # Bowel Movements 0 0 Result Diagram: 04/14/16 0542 04/14/16 0128 Imaging Last Impressions Chest X-Ray 04/12/16 0245 Signed Impressions: Service Date/Time: Tuesday, April 12, 2016 02:57 - CONCLUSION: The lungs are clear. Davion Elias MD Abdomen/Pelvis CT 04/12/16 0000 Signed Impressions: Service Date/Time: Tuesday, April 12, 2016 12:34 - CONCLUSION: Presumed rectus hematoma with iliopsoas hematoma on the left. Flynn Rodriguez MD FACR Objective Remarks GENERAL: Well-developed well-nourished. In no acute distress. SKIN: Warm and dry. Suprapubic ecchymosis. HEENT: Normocephalic. Pupils equal and round. Mucous membranes pink and moist. CARDIOVASCULAR: Regular rate and rhythm. No murmur appreciated. RESPIRATORY: No accessory muscle use. Clear to auscultation. Rhonchi present. GASTROINTESTINAL: Abdomen with tender nodular swelling in the LLQ. Bowel sounds x4.. Bowel sounds x4. MUSCULOSKELETAL: No obvious deformities. Thoracic spine tender to palpation. No clubbing or cyanosis. No edema. NEUROLOGICAL: Awake and alert. No focal neurological deficits. Moves upper and lower extremities spontaneously. Normal speech. PSYCHIATRIC: Appropriate mood and affect; insight and judgment normal. A/P Problem List: (1) Impaired mobility and ADLs ICD Code: Z74.09 Status: Acute (2) History of cardiac arrhythmia ICD Code: Z86.79 Status: Chronic (3) GERD (gastroesophageal reflux disease) ICD Code: K21.9 Status: Chronic (4) Tobacco abuse ICD Code: Z72.0 Status: Chronic (5) Hypercholesterolemia ICD Code: E78.0 Status: Chronic (6) Insomnia ICD Code: G47.00 Status: Chronic (7) Anemia ICD Code: D64.9 Status: Acute Assessment and Plan 80-year-old female with past medical history of HLD, A. fib, GERD, hypothyroidism, chronic back pain who presented after a fall Generalized weakness and falls: Patient reports multiple falls recently. Unclear etiology, possibly multifactorial from deconditioning, rule out other underlying medical etiologies. Labs reviewed, hemoglobin slightly decreased. Hyponatremia appears chronic. INR is high. Episode of hypoxia at admission. No signs of infectious etiology on labs, UA, or chest x-ray. Digoxin level therapeutic. -PT eval, recommends [facility]. -Anemia workup as below -Fall precautions Acute blood loss anemia Hemoglobin 9.1, previously 10.8 on 03/18/13. INR supratherapeutic. Hemoglobin trended down to 6.4. Likely secondary to hematoma as below. Iron studies also showed iron deficiency. -Check stool for Hemoccult -Ordered 2 units PRBCs -Monitor H&H -Treat cryopathy as below Possible pneumonia Episode of oxygen saturation 88% on room air on admission. Initial chest x-ray reviewed and unremarkable. Possibly secondary to anemia as above vs chronic COPD vs pneumonia vs volume overload from transfusions. No wheezing on exam, unlikely COPD exacerbation. Currently satting well on room air. Rhonchi on exam. Recent outpatient treatment with Cipro. -Treating anemia as above -O2 and nebs as needed -Tobacco cessation -Start oral azithromycin and IV ceftriaxone -Repeat chest x-ray -Consider additional diuresis Left rectus and iliopsoas hematoma. LLQ tender mass on exam prompted abdomen and pelvis CT. CT showed rectus hematoma and iliopsoas hematoma on the left, discussed with Dr. Rodriguez, unlikely malignancy based on history and exam. Discussed with general surgery, Dr. Leon, no operative intervention, conservative management. Consulted IR, unlikely intervention. -Supportive care and monitor Coagulopathy INR 4.0. INR likely increased from being on Cipro recently. Bleeding as above. -Given FFP, INR now subtherapeutic Atrial fibrillation -Hold Coumadin with bleeding as above (patient and family aware, anticoagulation risk outweighs benefits), INR now subtherapeutic -Continue amiodarone Acute on chronic thoracic spine pain status post previous kyphoplasty Likely exacerbated by recent fall -Check CT thoracic spine Constipation: Bowel regimen with Colace and milk of magnesia. Other chronic medical conditions include hypothyroidism, chronic back pain, GERD , hyperlipidemia, insomnia, depression: Stable at this time and will continue home medications as indicated. DVT prophylaxis: Coumadin on hold with bleeding. SCDs. Written by Alphonso Jones, acting as scribe for Dr. Mendoza on 04/14/16 at 10:49. The documentation accurately reflects the work performed [id number] by me on at 1049 Discharge Planning Disposition pending clinical course Problem Qualifiers (1) GERD (gastroesophageal reflux disease): Qualified Code: K21.9 - Gastroesophageal reflux disease, esophagitis presence not specified (2) Insomnia: Qualified Code: G47.00 - Insomnia, unspecified type (3) Anemia: Qualified Code: D62 - Acute posthemorrhagic anemia Alphonso Jones Apr 14, 2016 10:49 Sin Mendoza MD Apr 14, 2016 13:53
[2016-04-14] MEDS: DOCUSATE SODIUM 100 MG CAP PO SCH ×2 (11:03→21:00)
[2016-04-14] MEDS: cefTRIAXone INJ 1,000 MG in SODIUM CHLORIDE 0.9% INJ 100 ML IV SCH (11:03)
--- NOTE | 2016-04-14 11:24 | RADRPT ---
EXAM DATE/TIME: 04/14/2016 10:57 [facility] COMPARISON: CHEST SINGLE AP, April 12, 2016, 2:57. INDICATIONS : Cough. MEDICAL HISTORY : None. SURGICAL HISTORY : None. ENCOUNTER: Initial ACUITY: 1 day PAIN SCORE: 0/10 LOCATION: Bilateral chest FINDINGS: Minimal bibasilar parenchymal changes are noted worse on the left than the right. Heart and pulmonar y vascularity are normal. Portion of bony skeleton visualized is unremarkable. CONCLUSION: Increasing parenchymal changes in the left base. Flynn Rodriguez MD FACR on April 14, 2016 at 11:20 Board Certified Radiologist. This report was verified electronically.
[2016-04-14 15:36] LABS: HEMATOCRIT 30.7 % (35.0-46.0)
--- NOTE | 2016-04-14 16:23 | RADRPT ---
EXAM DATE/TIME: 04/14/2016 15:37 [facility] COMPARISON: No previous studies available for comparison. INDICATIONS : Chronic back pain. RADIATION DOSE: 14.15 CTDIvol (mGy) MEDICAL HISTORY : Cardiovascular disease. Hypertension. Gastroesophageal reflux disease. SURGICAL HISTORY : Kyphoplasty. ENCOUNTER: Initial ACUITY: 1 year PAIN SCALE: 4/10 LOCATION: Thoracic TECHNIQUE: Volumetric scanning of the thoracic spine was performed. Multiplanar reconstructions in the sagittal , coronal and oblique axial planes were performed. Using automated exposure control and adjustment o f the mA and/or kV according to patient size, radiation dose was kept as low as reasonably achievable to obtain optimal diagnostic quality images. FINDINGS: Kyphoplasty is noted at T11 and T12 with moderate compression deformities at these levels. Mild comp ression deformity is noted involving T9. No retropulsed fragment is noted at T9. The age of this fr acture is indeterminate on this examination. Minimal compression deformity is noted involving T7, al so age indeterminate. Diffuse osteopenia is noted throughout the thoracic spine. Degenerative silva es and scoliosis of the thoracic spine are also noted. There is mild compression deformity involving T3 of indeterminate age. A large hiatal hernia is noted. Posterior bibasilar patchiness is noted c onsistent with atelectasis and/or infiltrates. CONCLUSION: 1. Mild compression deformities involving T9 and T3 and minimal compression deformity involving T7 o f indeterminate ages. 2. Diffuse osteopenia of the thoracic spine. 3. Degenerative changes and scoliosis of the thoracic spine. 4. Status post kyphoplasties at T11 and T12 with compression deformities at these levels. 5. Moderate sized hiatal hernia. 6. Bibasilar patchiness consistent with atelectasis and/or infiltrates. George Kim MD on April 14, 2016 at 16:03 Board Certified Radiologist. This report was verified electronically.
[2016-04-14] MEDS: PRAVASTATIN SOD 80 MG TAB PO SCH (23:39)
[2016-04-14] MEDS: CARISOPRODOL 350 MG TAB PO SCH (23:40)
[2016-04-14] MEDS: TEMAZEPAM 15 MG CAP PO PRN (23:40)
[2016-04-15] VITALS (8 sets, daily range): BP systolic 93–125; BP diastolic 54–64; PULSE 76–93; RESP 14–20; TEMP 96.5–98.9; O2SAT 92–97
[2016-04-15 07:35] LABS: AUTOMATED NEUTROPHIL # 10.1 TH/MM3 (1.8-7.7); BASOPHIL % 0.2 % (0.0-2.0); EOSINOPHIL # 0.1 TH/MM3 (0-0.4); EOSINOPHIL % 0.7 % (0.0-4.0); HEMATOCRIT 29.6 % (35.0-46.0); HEMO FLAGS DIFF FINAL; LYMPH % 6.2 % (9.0-44.0); LYMPHOCYTE # 0.7 TH/MM3 (1.0-4.8); MEAN CELL VOLUME 85.1 FL (80.0-100.0); MEAN CORPUSCULAR HGB CONC 34.1 % (32.0-36.0); MONO % 9.7 % (0.0-8.0); NEUT % 83.2 % (16.0-70.0); PLATELET COUNT 380 TH/MM3 (150-450); RED BLOOD COUNT 3.48 MIL/MM3 (4.00-5.30); RED CELL DISTRIBUTION WIDTH 15.2 % (11.6-17.2); WHITE BLOOD COUNT 12.1 TH/MM3 (4.0-11.0)
[2016-04-15 07:41] LABS: INTERNATIONAL NORMALIZED RATIO 1.3 RATIO
[2016-04-15] MEDS: SODIUM CHLORIDE 0.9% FLUSH 5 ML FLUSH FLUSH SCH ×2 (09:00→22:58)
[2016-04-15] MEDS: FERROUS SULFATE 325 MG (65 MG ELEMENTAL IRON) TAB PO SCH ×2 (09:00→22:57)
[2016-04-15] MEDS: ESCITALOPRAM OXALATE 20 MG TAB PO SCH (09:54)
[2016-04-15] MEDS: DIGOXIN 0.125 MG TAB PO SCH (09:55)
[2016-04-15] MEDS: LEVOTHYROXINE SODIUM 150 MCG TAB PO SCH (09:55)
[2016-04-15] MEDS: SUCRALFATE 1 GM TAB PO SCH ×2 (09:55→22:57)
[2016-04-15] MEDS: AZITHROMYCIN 250 MG TAB PO SCH (09:55)
[2016-04-15] MEDS: DOCUSATE SODIUM 100 MG CAP PO SCH ×2 (09:55→21:00)
[2016-04-15] MEDS: POTASSIUM CHLORIDE 10 MEQ CAP PO SCH ×3 (09:55→18:50)
[2016-04-15] MEDS: PANTOPRAZOLE SOD 20 MG DELAYED RELEASE TAB PO SCH ×2 (09:55→22:56)
[2016-04-15] MEDS: AMIODARONE 200 MG TAB PO SCH (09:56)
[2016-04-15] MEDS: cefTRIAXone INJ 1,000 MG in SODIUM CHLORIDE 0.9% INJ 100 ML IV SCH (11:19)
--- NOTE | 2016-04-15 12:32 | HHI.PR ---
Subjective Remarks F/U PNA. Called to evaluate 2/2 hypotension SBP 80. Feels tired no dizziness, cp and SOB dw RN and family Objective Vitals Vital Signs Date Time Temp Pulse Resp B/P Pulse Ox O2 Delivery O2 Flow Rate FiO2 04/15/16 12:19 92 21 04/15/16 08:00 96.5 76 17 99/54 94 04/15/16 04:00 97.9 80 14 112/64 97 04/15/16 00:56 16 04/15/16 00:00 96.6 87 14 125/63 96 04/14/16 20:15 96 Nasal Cannula 2.00 04/14/16 20:00 98.7 76 25 125/62 97 04/14/16 15:00 97.0 77 20 127/66 99 I/O 04/14/16 04/14/16 04/14/16 04/15/16 04/15/16 04/15/16 07:00 15:00 23:00 07:00 15:00 23:00 Intake Total 480 ml 240 ml 100 ml Output Total 4 ml Balance 480 ml 236 ml 100 ml Intake Oral 480 ml 240 ml 100 ml Output Urine Total 4 ml # Voids 2 2 1 # Bowel Movements 0 Result Diagram: 04/15/16 0703 04/14/16 0128 Imaging Last Impressions Thoracic Spine CT 04/14/16 0000 Signed Impressions: Service Date/Time: Thursday, April 14, 2016 15:37 - CONCLUSION: 1. Mild compression deformities involving T9 and T3 and minimal compression deformity involving T7 of indeterminate ages. 2. Diffuse osteopenia of the thoracic spine. 3. Degenerative changes and scoliosis of the thoracic spine. 4. Status post kyphoplasties at T11 and T12 with compression deformities at these levels. 5. Moderate sized hiatal hernia. 6. Bibasilar patchiness consistent with atelectasis and/or infiltrates. George Kim MD Chest X-Ray 04/14/16 0000 Signed Impressions: Service Date/Time: Thursday, April 14, 2016 10:57 - CONCLUSION: Increasing parenchymal changes in the left base. Flynn Rodriguez MD FACR Abdomen/Pelvis CT 04/12/16 0000 Signed Impressions: Service Date/Time: Tuesday, April 12, 2016 12:34 - CONCLUSION: Presumed rectus hematoma with iliopsoas hematoma on the left. Flynn Rodriguez MD FACR Objective Remarks GENERAL: Well-developed, well-nourished in no distress SKIN: Warm and dry. HEAD: Atraumatic. Normocephalic. EYES: Pupils equal and round. No scleral icterus. No injection or drainage. ENT: No nasal bleeding or discharge. Mucous membranes pink and moist. NECK: Trachea midline. No JVD. CARDIOVASCULAR: Regular rate and rhythm. RESPIRATORY: No accessory muscle use. Decreased breath sounds equal bilaterally. GASTROINTESTINAL: Abdomen soft, tender left lower quadrant, nondistended. MUSCULOSKELETAL: Extremities without clubbing, cyanosis, or edema. No obvious deformities. NEUROLOGICAL: Awake and alert. No obvious cranial nerve deficits. Motor grossly within normal limits. Five out of 5 muscle strength in the arms and legs. Normal speech. PSYCHIATRIC: Appropriate mood and affect; insight and judgment normal. Procedures Non- A/P Problem List: (1) Impaired mobility and ADLs ICD Code: Z74.09 Status: Acute (2) History of cardiac arrhythmia ICD Code: Z86.79 Status: Chronic (3) GERD (gastroesophageal reflux disease) ICD Code: K21.9 Status: Chronic (4) Tobacco abuse ICD Code: Z72.0 Status: Chronic (5) Hypercholesterolemia ICD Code: E78.0 Status: Chronic (6) Insomnia ICD Code: G47.00 Status: Chronic (7) Anemia ICD Code: D64.9 Status: Acute Assessment and Plan 80-year-old female with past medical history of HLD, A. fib, GERD, hypothyroidism, chronic back pain who presented after a fall Generalized weakness and falls: Patient reports multiple falls recently. Unclear etiology, possibly multifactorial from deconditioning, rule out other underlying medical etiologies. Labs reviewed, hemoglobin slightly decreased. Hyponatremia appears chronic. INR is high. Episode of hypoxia at admission. No signs of infectious etiology on labs, UA, or chest x-ray. Digoxin level therapeutic. -PT eval, recommends [facility]. -Anemia workup as below -Fall precautions Acute blood loss anemia Hemoglobin 9.1, previously 10.8 on 03/18/13. INR supratherapeutic. Hemoglobin trended down to 6.4. Likely secondary to hematoma as below. Iron studies also showed iron deficiency. -Check stool for Hemoccult -Ordered 2 units PRBCs -Monitor H&H -Treat cryopathy as below Left rectus and iliopsoas hematoma. LLQ tender mass on exam prompted abdomen and pelvis CT. CT showed rectus hematoma and iliopsoas hematoma on the left, discussed with Dr. Rodriguez, unlikely malignancy based on history and exam. Discussed with general surgery, Dr. Leon, no operative intervention, conservative management. Consulted IR, unlikely intervention. -Supportive care and monitor Coagulopathy INR 4.0. INR likely increased from being on Cipro recently. Bleeding as above. -Given FFP, INR now subtherapeutic Atrial fibrillation -Hold Coumadin with bleeding as above (patient and family aware, anticoagulation risk outweighs benefits), INR now subtherapeutic -Continue amiodarone Acute on chronic thoracic spine pain status post previous kyphoplasty Likely exacerbated by recent fall -CT thoracic spine with indeterminate compression injuries Sepsis (leukocytosis and tachypnea) secondary to pneumonia Episode of oxygen saturation 88% on room air on admission. Initial chest x-ray reviewed and unremarkable. Possibly secondary to anemia as above vs chronic COPD vs pneumonia vs volume overload from transfusions. No wheezing on exam, unlikely COPD exacerbation. Currently satting well on room air. Rhonchi on exam. Recent outpatient treatment with Cipro. -Treating anemia as above -O2 and nebs as needed -Tobacco cessation -Continue azithromycin and IV ceftriaxone -Repeat chest x-ray image interpreted by me with pneumonia. Obtain sputum culture, urinary pneumococcal and Legionella antigen and blood cultures as needed -Today with hypotension, repeat CBC and BMP. Start gentle IV hydration for 500 mL. Fluid bolus as needed Constipation: Bowel regimen with Colace and milk of magnesia. Other chronic medical conditions include hypothyroidism, chronic back pain, GERD , hyperlipidemia, insomnia, depression: Stable at this time and will continue home medications as indicated. DVT prophylaxis: Coumadin on hold with bleeding. SCDs. Problem Qualifiers (1) GERD (gastroesophageal reflux disease): Qualified Code: K21.9 - Gastroesophageal reflux disease, esophagitis presence not specified (2) Insomnia: Qualified Code: G47.00 - Insomnia, unspecified type (3) Anemia: Qualified Code: D62 - Acute posthemorrhagic anemia Sin Mendoza MD Apr 15, 2016 12:32
[2016-04-15] MEDS ORDERED: SODIUM CHLOR 0.9% 250 ML INJ 250 ML IV PRN (12:45)
[2016-04-15] MEDS ORDERED: SODIUM CHLORID 0.9% 500 ML INJ 500 ML IV SCH (13:00)
[2016-04-15 14:16] LABS: AUTOMATED NEUTROPHIL # 13.1 TH/MM3 (1.8-7.7); BASOPHIL # 0.1 TH/MM3 (0-0.2); BASOPHIL % 0.5 % (0.0-2.0); EOSINOPHIL # 0.1 TH/MM3 (0-0.4); EOSINOPHIL % 0.5 % (0.0-4.0); HEMATOCRIT 30.3 % (35.0-46.0); HEMO FLAGS AUTO DIFF; LYMPH % 5.6 % (9.0-44.0); LYMPHOCYTE # 0.9 TH/MM3 (1.0-4.8); MEAN CELL VOLUME 85.6 FL (80.0-100.0); MEAN CORPUSCULAR HEMOGLOBIN 28.9 PG (27.0-34.0); MEAN CORPUSCULAR HGB CONC 33.8 % (32.0-36.0); MONO % 8.3 % (0.0-8.0); NEUT % 85.1 % (16.0-70.0); PLATELET COUNT 394 TH/MM3 (150-450); RED BLOOD COUNT 3.54 MIL/MM3 (4.00-5.30); RED CELL DISTRIBUTION WIDTH 15.4 % (11.6-17.2); WHITE BLOOD COUNT 15.4 TH/MM3 (4.0-11.0)
[2016-04-15 14:37] LABS: BICARBONATE 27.2 MEQ/L (21.0-32.0); MAGNESIUM 2.3 MG/DL (1.5-2.5); POTASSIUM 4.7 MEQ/L (3.5-5.1)
[2016-04-15 15:17] LABS: BANDS 2 % (0-6); MYELOCYTES 3 % (0-0); NEUTROPHIL # MANUAL DIFF 13.6 TH/MM3 (1.8-7.7); POLYS (SEG NEUTROPHILS) 83 % (16-70); WBC DIFF SAMPLE 100
[2016-04-15 15:18] LABS: PLATELET ESTIMATE SMEAR NORMAL (NORMAL); PLATELET MORPHOLOGY NORMAL (NORMAL); SCAN/DIFF FINAL DIFF MANUAL
[2016-04-15] MEDS: traMADol HCL 50 MG TAB PO PRN (19:23)
[2016-04-15] MEDS: TEMAZEPAM 15 MG CAP PO PRN (22:56)
[2016-04-15] MEDS: PRAVASTATIN SOD 80 MG TAB PO SCH (22:56)
[2016-04-15] MEDS: CARISOPRODOL 350 MG TAB PO SCH (22:57)
[2016-04-16 01:00] VITALS: BP 111/63; PULSE 82; RESP 18; TEMP 97; O2SAT 95
[2016-04-16 04:00] VITALS: BP 120/78; PULSE 85; RESP 18; TEMP 97.2; O2SAT 97
[2016-04-16 08:00] VITALS: BP 111/56; PULSE 65; RESP 22; TEMP 97.6; O2SAT 100
[2016-04-16 09:42] LABS: AUTOMATED NEUTROPHIL # 8.3 TH/MM3 (1.8-7.7); BASOPHIL % 0.3 % (0.0-2.0); EOSINOPHIL # 0.1 TH/MM3 (0-0.4); EOSINOPHIL % 0.8 % (0.0-4.0); HEMATOCRIT 29.9 % (35.0-46.0); LYMPH % 6.9 % (9.0-44.0); LYMPHOCYTE # 0.7 TH/MM3 (1.0-4.8); MEAN CELL VOLUME 86.9 FL (80.0-100.0); MEAN CORPUSCULAR HEMOGLOBIN 29.3 PG (27.0-34.0); MEAN CORPUSCULAR HGB CONC 33.7 % (32.0-36.0); PLATELET COUNT 373 TH/MM3 (150-450); RED BLOOD COUNT 3.44 MIL/MM3 (4.00-5.30); RED CELL DISTRIBUTION WIDTH 15.2 % (11.6-17.2); WHITE BLOOD COUNT 10.4 TH/MM3 (4.0-11.0)
[2016-04-16 09:48] LABS: INTERNATIONAL NORMALIZED RATIO 1.1 RATIO; PROTHROMBIN TIME - PATIENT 12.6 SEC (9.8-11.6)
[2016-04-16 09:52] LABS: HEMO FLAGS AUTO DIFF
[2016-04-16] MEDS: FERROUS SULFATE 325 MG (65 MG ELEMENTAL IRON) TAB PO SCH ×2 (10:19→21:00)
[2016-04-16] MEDS: LEVOTHYROXINE SODIUM 150 MCG TAB PO SCH (10:19)
[2016-04-16] MEDS: PANTOPRAZOLE SOD 20 MG DELAYED RELEASE TAB PO SCH ×2 (10:19→22:10)
[2016-04-16] MEDS: AZITHROMYCIN 250 MG TAB PO SCH (10:19)
[2016-04-16] MEDS: DIGOXIN 0.125 MG TAB PO SCH (10:19)
[2016-04-16] MEDS: POTASSIUM CHLORIDE 10 MEQ CAP PO SCH ×3 (10:20→18:26)
[2016-04-16] MEDS: ESCITALOPRAM OXALATE 20 MG TAB PO SCH (10:20)
[2016-04-16] MEDS: AMIODARONE 200 MG TAB PO SCH (10:20)
[2016-04-16] MEDS: SUCRALFATE 1 GM TAB PO SCH ×2 (10:20→22:09)
[2016-04-16] MEDS: DOCUSATE SODIUM 100 MG CAP PO SCH ×2 (10:20→22:10)
[2016-04-16] MEDS: SODIUM CHLORIDE 0.9% FLUSH 5 ML FLUSH FLUSH SCH ×2 (10:27→21:00)
[2016-04-16 10:36] LABS: EOSINOPHILS 1 % (0-4); METAMYELOCYTES 2 % (0-1); NEUTROPHIL # MANUAL DIFF 8.7 TH/MM3 (1.8-7.7); PLATELET ESTIMATE SMEAR NORMAL (NORMAL); PLATELET MORPHOLOGY NORMAL (NORMAL); POLYS (SEG NEUTROPHILS) 82 % (16-70); SCAN/DIFF FINAL DIFF MANUAL; WBC DIFF SAMPLE 100
[2016-04-16 12:00] VITALS: BP 84/50; PULSE 76; RESP 24; TEMP 96.7; O2SAT 95
[2016-04-16] MEDS: cefTRIAXone INJ 1,000 MG in SODIUM CHLORIDE 0.9% INJ 100 ML IV SCH (12:39)
--- NOTE | 2016-04-16 12:40 | HHI.PR ---
Subjective Remarks Follow-up anemia. Patient was dizzy this morning when she got up and his systolic blood pressure 86. Discussed with RN Objective Vitals Vital Signs Date Time Temp Pulse Resp B/P Pulse Ox O2 Delivery O2 Flow Rate FiO2 04/16/16 08:00 97.6 65 22 111/56 100 04/16/16 04:00 97.2 85 18 120/78 97 04/16/16 01:00 97.0 82 18 111/63 95 04/16/16 00:54 18 04/15/16 20:00 97.6 93 20 94/55 95 04/15/16 16:06 96.6 82 17 108/60 97 I/O 04/15/16 04/15/16 04/15/16 04/16/16 04/16/16 04/16/16 07:00 15:00 23:00 07:00 15:00 23:00 Intake Total 100 ml 600 ml Balance 100 ml 600 ml Intake Oral 100 ml 600 ml # Voids 1 4 3 # Bowel Movements 0 2 Result Diagram: 04/16/16 0755 04/15/16 1405 Objective Remarks GENERAL: Well-developed, well-nourished in no distress SKIN: Warm and dry. HEAD: Atraumatic. Normocephalic. EYES: Pupils equal and round. No scleral icterus. No injection or drainage. ENT: No nasal bleeding or discharge. Mucous membranes pink and moist. NECK: Trachea midline. No JVD. CARDIOVASCULAR: Regular rate and rhythm. RESPIRATORY: No accessory muscle use. Decreased breath sounds equal bilaterally. GASTROINTESTINAL: Abdomen soft, tender left lower quadrant, nondistended. MUSCULOSKELETAL: Extremities without clubbing, cyanosis, or edema. No obvious deformities. NEUROLOGICAL: Awake and alert. No obvious cranial nerve deficits. Motor grossly within normal limits. Five out of 5 muscle strength in the arms and legs. Normal speech. PSYCHIATRIC: Appropriate mood and affect; insight and judgment normal. Procedures Non- A/P Problem List: (1) Impaired mobility and ADLs ICD Code: Z74.09 Status: Acute (2) History of cardiac arrhythmia ICD Code: Z86.79 Status: Chronic (3) GERD (gastroesophageal reflux disease) ICD Code: K21.9 Status: Chronic (4) Tobacco abuse ICD Code: Z72.0 Status: Chronic (5) Hypercholesterolemia ICD Code: E78.0 Status: Chronic (6) Insomnia ICD Code: G47.00 Status: Chronic (7) Anemia ICD Code: D64.9 Status: Acute Assessment and Plan 80-year-old female with past medical history of HLD, A. fib, GERD, hypothyroidism, chronic back pain who presented after a fall Generalized weakness and falls: Patient reports multiple falls recently. Unclear etiology, possibly multifactorial from deconditioning, rule out other underlying medical etiologies. Labs reviewed, hemoglobin slightly decreased. Hyponatremia appears chronic. INR is high. Episode of hypoxia at admission. No signs of infectious etiology on labs, UA, or chest x-ray. Digoxin level therapeutic. -PT eval, recommends HHC. -Anemia workup as below -Fall precautions Acute blood loss anemia Hemoglobin 9.1, previously 10.8 on 03/18/13. INR supratherapeutic. Hemoglobin trended down to 6.4. Likely secondary to hematoma as below. Iron studies also showed iron deficiency. -Ordered stool for Hemoccult -Ordered 2 units PRBCs -Monitor H&H -Treat cryopathy as below -Improved blood count however patient complaining of dizziness with hypotension. Repeat CBC Left rectus and iliopsoas hematoma. LLQ tender mass on exam prompted abdomen and pelvis CT. CT showed rectus hematoma and iliopsoas hematoma on the left, discussed with Dr. Rodriguez, unlikely malignancy based on history and exam. Discussed with general surgery, Dr. Leon, no operative intervention, conservative management. Consulted IR, unlikely intervention. -Supportive care and monitor Coagulopathy INR 4.0. INR likely increased from being on Cipro recently. Bleeding as above. -Given FFP, INR now subtherapeutic Atrial fibrillation -Hold Coumadin with bleeding as above (patient and family aware, anticoagulation risk outweighs benefits), INR now subtherapeutic -Continue amiodarone Acute on chronic thoracic spine pain status post previous kyphoplasty Likely exacerbated by recent fall -CT thoracic spine with indeterminate compression injuries Sepsis (leukocytosis and tachypnea) secondary to pneumonia Episode of oxygen saturation 88% on room air on admission. Initial chest x-ray reviewed and unremarkable. Possibly secondary to anemia as above vs chronic COPD vs pneumonia vs volume overload from transfusions. No wheezing on exam, unlikely COPD exacerbation. Currently satting well on room air. Rhonchi on exam. Recent outpatient treatment with Cipro. -Treating anemia as above -O2 and nebs as needed -Tobacco cessation -Continue azithromycin and IV ceftriaxone -Repeat chest x-ray image interpreted by me with pneumonia. Obtain sputum culture, negative urinary pneumococcal and Legionella antigen and blood cultures as needed -Today with hypotension again, repeat CBC and BMP. Start gentle IV hydration for 1000 mL. Fluid bolus as needed Constipation: Bowel regimen with Colace and milk of magnesia. Other chronic medical conditions include hypothyroidism, chronic back pain, GERD , hyperlipidemia, insomnia, depression: Stable at this time and will continue home medications as indicated. DVT prophylaxis: Coumadin on hold with bleeding. SCDs. Discharge Planning Rehabilitation versus home health care Problem Qualifiers (1) GERD (gastroesophageal reflux disease): Qualified Code: K21.9 - Gastroesophageal reflux disease, esophagitis presence not specified (2) Insomnia: Qualified Code: G47.00 - Insomnia, unspecified type (3) Anemia: Qualified Code: D62 - Acute posthemorrhagic anemia Sin Mendoza MD Apr 16, 2016 12:40
[2016-04-16 15:34] LABS: AUTOMATED NEUTROPHIL # 7.6 TH/MM3 (1.8-7.7); BASOPHIL % 0.1 % (0.0-2.0); EOSINOPHIL # 0.1 TH/MM3 (0-0.4); EOSINOPHIL % 1.1 % (0.0-4.0); HEMATOCRIT 31.3 % (35.0-46.0); LYMPH % 6.6 % (9.0-44.0); LYMPHOCYTE # 0.6 TH/MM3 (1.0-4.8); MEAN CELL VOLUME 87.2 FL (80.0-100.0); MEAN CORPUSCULAR HEMOGLOBIN 29.1 PG (27.0-34.0); MEAN CORPUSCULAR HGB CONC 33.4 % (32.0-36.0); MONO % 10.5 % (0.0-8.0); NEUT % 81.7 % (16.0-70.0); PLATELET COUNT 398 TH/MM3 (150-450); RED BLOOD COUNT 3.59 MIL/MM3 (4.00-5.30); WHITE BLOOD COUNT 9.3 TH/MM3 (4.0-11.0)
[2016-04-16 15:41] LABS: HEMO FLAGS AUTO DIFF
[2016-04-16 15:57] LABS: BICARBONATE 28.3 MEQ/L (21.0-32.0); MAGNESIUM 2.2 MG/DL (1.5-2.5); POTASSIUM 4.3 MEQ/L (3.5-5.1)
[2016-04-16 16:00] VITALS: BP 142/66; PULSE 74; RESP 23; TEMP 98.2; O2SAT 98
[2016-04-16 16:08] LABS: PLATELET ESTIMATE SMEAR NORMAL (NORMAL); PLATELET MORPHOLOGY NORMAL (NORMAL); SCAN/DIFF AUTO DIFF CONFIRMED
[2016-04-16] MEDS: diphenhydrAMINE HCL 25 MG CAP PO PRN (18:26)
[2016-04-16 20:00] VITALS: BP 111/58; PULSE 81; RESP 18; TEMP 97.1; O2SAT 98
[2016-04-16] MEDS: PRAVASTATIN SOD 80 MG TAB PO SCH (22:09)
[2016-04-16] MEDS: CARISOPRODOL 350 MG TAB PO SCH (22:10)
[2016-04-16] MEDS: CALAMINE/PRAMOXINE LOTION 180 ML BTL TOPICAL SCH (22:10)
[2016-04-17] VITALS (10 sets, daily range): BP systolic 98–134; BP diastolic 54–61; PULSE 67–84; RESP 18–20; TEMP 96.3–98.2; O2SAT 93–98
[2016-04-17 06:56] LABS: INTERNATIONAL NORMALIZED RATIO 1.1 RATIO
[2016-04-17 06:59] LABS: AUTOMATED NEUTROPHIL # 6.1 TH/MM3 (1.8-7.7); BASOPHIL % 0.2 % (0.0-2.0); EOSINOPHIL # 0.1 TH/MM3 (0-0.4); EOSINOPHIL % 1.2 % (0.0-4.0); HEMATOCRIT 30.8 % (35.0-46.0); LYMPH % 8.1 % (9.0-44.0); LYMPHOCYTE # 0.6 TH/MM3 (1.0-4.8); MEAN CELL VOLUME 86.8 FL (80.0-100.0); MEAN CORPUSCULAR HEMOGLOBIN 29.3 PG (27.0-34.0); MEAN CORPUSCULAR HGB CONC 33.8 % (32.0-36.0); MONO % 12.4 % (0.0-8.0); NEUT % 78.1 % (16.0-70.0); PLATELET COUNT 394 TH/MM3 (150-450); RED BLOOD COUNT 3.54 MIL/MM3 (4.00-5.30); RED CELL DISTRIBUTION WIDTH 14.8 % (11.6-17.2); WHITE BLOOD COUNT 7.8 TH/MM3 (4.0-11.0)
[2016-04-17 07:03] LABS: BICARBONATE 25.3 MEQ/L (21.0-32.0); MAGNESIUM 2.4 MG/DL (1.5-2.5); POTASSIUM 4.1 MEQ/L (3.5-5.1)
[2016-04-17 07:26] LABS: HEMO FLAGS AUTO DIFF
[2016-04-17] MEDS: DOCUSATE SODIUM 100 MG CAP PO SCH ×2 (08:38→21:00)
[2016-04-17] MEDS: SUCRALFATE 1 GM TAB PO SCH ×2 (08:38→21:21)
[2016-04-17] MEDS: ESCITALOPRAM OXALATE 20 MG TAB PO SCH (08:39)
[2016-04-17] MEDS: LEVOTHYROXINE SODIUM 150 MCG TAB PO SCH (08:39)
[2016-04-17] MEDS: POTASSIUM CHLORIDE 10 MEQ CAP PO SCH ×3 (08:39→18:16)
[2016-04-17] MEDS: AZITHROMYCIN 250 MG TAB PO SCH (08:39)
[2016-04-17] MEDS: diphenhydrAMINE HCL 25 MG CAP PO PRN ×3 (08:39→21:16)
[2016-04-17] MEDS: AMIODARONE 200 MG TAB PO SCH (08:39)
[2016-04-17] MEDS: PANTOPRAZOLE SOD 20 MG DELAYED RELEASE TAB PO SCH ×2 (08:39→21:17)
[2016-04-17] MEDS: DIGOXIN 0.125 MG TAB PO SCH (08:39)
[2016-04-17] MEDS: CALAMINE/PRAMOXINE LOTION 180 ML BTL TOPICAL SCH ×2 (08:41→21:00)
[2016-04-17] MEDS: FERROUS SULFATE 325 MG (65 MG ELEMENTAL IRON) TAB PO SCH ×2 (08:41→21:00)
[2016-04-17] MEDS: SODIUM CHLORIDE 0.9% FLUSH 5 ML FLUSH FLUSH SCH ×2 (08:42→21:16)
[2016-04-17 10:04] LABS: SCAN/DIFF AUTO DIFF CONFIRMED
--- NOTE | 2016-04-17 11:36 | HHI.PR ---
Subjective Remarks Follow-up hypotension. Improved BP still on IV fluids. No dizziness has not been out of bed.. She is refusing to go to rehabilitation. Discussed with RN Objective Vitals Vital Signs Date Time Temp Pulse Resp B/P Pulse Ox O2 Delivery O2 Flow Rate FiO2 04/17/16 11:27 93 21 04/17/16 10:06 67 04/17/16 08:00 97.7 75 20 134/61 97 04/17/16 04:00 98.2 68 18 118/58 97 04/17/16 01:00 98.0 71 18 112/57 98 04/16/16 20:10 Nasal Cannula 3.00 04/16/16 20:00 97.1 81 18 111/58 98 04/16/16 16:00 98.2 74 23 142/66 98 04/16/16 12:00 96.7 76 24 84/50 95 I/O 04/16/16 04/16/16 04/16/16 04/17/16 04/17/16 04/17/16 07:00 15:00 23:00 07:00 15:00 23:00 Intake Total 482 ml Balance 482 ml IV Total 482 ml # Voids 3 2 6 # Bowel Movements 2 0 Result Diagram: 04/17/16 0609 04/17/16 0609 Imaging Last Impressions Thoracic Spine CT 04/14/16 0000 Signed Impressions: Service Date/Time: Thursday, April 14, 2016 15:37 - CONCLUSION: 1. Mild compression deformities involving T9 and T3 and minimal compression deformity involving T7 of indeterminate ages. 2. Diffuse osteopenia of the thoracic spine. 3. Degenerative changes and scoliosis of the thoracic spine. 4. Status post kyphoplasties at T11 and T12 with compression deformities at these levels. 5. Moderate sized hiatal hernia. 6. Bibasilar patchiness consistent with atelectasis and/or infiltrates. George Kim MD Chest X-Ray 04/14/16 0000 Signed Impressions: Service Date/Time: Thursday, April 14, 2016 10:57 - CONCLUSION: Increasing parenchymal changes in the left base. Flynn Rodriguez MD FACR Abdomen/Pelvis CT 04/12/16 0000 Signed Impressions: Service Date/Time: Tuesday, April 12, 2016 12:34 - CONCLUSION: Presumed rectus hematoma with iliopsoas hematoma on the left. Flynn Rodriguez MD FACR Objective Remarks GENERAL: Well-developed, well-nourished in no distress SKIN: Warm and dry. HEAD: Atraumatic. Normocephalic. EYES: Pupils equal and round. No scleral icterus. No injection or drainage. ENT: No nasal bleeding or discharge. Mucous membranes pink and moist. NECK: Trachea midline. No JVD. CARDIOVASCULAR: Regular rate and rhythm. RESPIRATORY: No accessory muscle use. Decreased breath sounds equal bilaterally. GASTROINTESTINAL: Abdomen soft, tender left lower quadrant, nondistended. MUSCULOSKELETAL: Extremities without clubbing, cyanosis, or edema. No obvious deformities. NEUROLOGICAL: Awake and alert. No obvious cranial nerve deficits. Motor grossly within normal limits. Five out of 5 muscle strength in the arms and legs. Normal speech. PSYCHIATRIC: Appropriate mood and affect; insight and judgment normal. Procedures Non- A/P Problem List: (1) Impaired mobility and ADLs ICD Code: Z74.09 Status: Acute (2) History of cardiac arrhythmia ICD Code: Z86.79 Status: Chronic (3) GERD (gastroesophageal reflux disease) ICD Code: K21.9 Status: Chronic (4) Tobacco abuse ICD Code: Z72.0 Status: Chronic (5) Hypercholesterolemia ICD Code: E78.0 Status: Chronic (6) Insomnia ICD Code: G47.00 Status: Chronic (7) Anemia ICD Code: D64.9 Status: Acute Assessment and Plan 80-year-old female with past medical history of HLD, A. fib, GERD, hypothyroidism, chronic back pain who presented after a fall Generalized weakness and falls: Patient reports multiple falls recently. Unclear etiology, possibly multifactorial from deconditioning, rule out other underlying medical etiologies. Labs reviewed, hemoglobin slightly decreased. Hyponatremia appears chronic. INR is high. Episode of hypoxia at admission. No signs of infectious etiology on labs, UA, or chest x-ray. Digoxin level therapeutic. -PT eval, recommends HHC. Follow-up reevaluation today -Anemia workup as below -Fall precautions Acute blood loss anemia Hemoglobin 9.1, previously 10.8 on 03/18/13. INR supratherapeutic. Hemoglobin trended down to 6.4. Likely secondary to hematoma as below. Iron studies also showed iron deficiency. -Ordered stool for Hemoccult -Ordered 2 units PRBCs -Monitor H&H -Treat cryopathy as below -Improved blood count however patient complaining of dizziness with hypotension. Repeat CBC and BMP stable, improved BP with IV hydration to be finished today Left rectus and iliopsoas hematoma. LLQ tender mass on exam prompted abdomen and pelvis CT. CT showed rectus hematoma and iliopsoas hematoma on the left, discussed with Dr. Rodriguez, unlikely malignancy based on history and exam. Discussed with general surgery, Dr. Leon, no operative intervention, conservative management. Consulted IR, unlikely intervention. -Supportive care and monitor Coagulopathy INR 4.0. INR likely increased from being on Cipro recently. Bleeding as above. -Given FFP, INR now subtherapeutic Atrial fibrillation -Hold Coumadin with bleeding as above (patient and family aware, anticoagulation risk outweighs benefits), INR now subtherapeutic -Continue amiodarone and consider restarting Coumadin in the morning Acute on chronic thoracic spine pain status post previous kyphoplasty Likely exacerbated by recent fall -CT thoracic spine with indeterminate compression injuries Sepsis (leukocytosis and tachypnea) secondary to pneumonia Episode of oxygen saturation 88% on room air on admission. Initial chest x-ray reviewed and unremarkable. Possibly secondary to anemia as above vs chronic COPD vs pneumonia vs volume overload from transfusions. No wheezing on exam, unlikely COPD exacerbation. Currently satting well on room air. Rhonchi on exam. Recent outpatient treatment with Cipro. -Treating anemia as above -O2 and nebs as needed -Tobacco cessation -Switch azithromycin and IV ceftriaxone to by mouth -Repeat chest x-ray image interpreted by me with pneumonia. Obtain sputum culture, negative urinary pneumococcal and Legionella antigen and blood cultures as needed Constipation: Bowel regimen with Colace and milk of magnesia. Other chronic medical conditions include hypothyroidism, chronic back pain, GERD , hyperlipidemia, insomnia, depression: Stable at this time and will continue home medications as indicated. DVT prophylaxis: Coumadin on hold with bleeding. SCDs. Discharge Planning Rehabilitation versus home health care in a.m. Problem Qualifiers (1) GERD (gastroesophageal reflux disease): Qualified Code: K21.9 - Gastroesophageal reflux disease, esophagitis presence not specified (2) Insomnia: Qualified Code: G47.00 - Insomnia, unspecified type (3) Anemia: Qualified Code: D62 - Acute posthemorrhagic anemia Sin Mendoza MD Apr 17, 2016 11:36
--- NOTE | 2016-04-17 11:38 | HHI.DCPOC ---
Discharge Care Plan Diagnosis: (1) Impaired mobility and ADLs Your Health Problems Are: Difficulty with ADL Exercise Tolerance Goals to Promote Your Health * To prevent worsening of your condition and complications * To maintain your health at the optimal level Directions to Meet Your Goals Take your medications as prescribed Follow your dietary instruction Follow activity as directed Keep your appointments as scheduled Take your immunizations and boosters as scheduled If your symptoms worsen call your PCP, if no PCP go to Urgent Care Center or Emergency Room Smoking is Dangerous to Your Health. Avoid second hand smoke Call the 24-hour hour crisis hotline for domestic abuse at Sin Mendoza MD Apr 17, 2016 11:38
--- NOTE | 2016-04-17 11:40 | HHI.FF ---
Face to Face Verification Diagnosis: (1) Impaired mobility and ADLs Physical Therapy Order: Evaluate and Treat, Improve ambulation, Strength and gait training I have seen patient Viviane Elizalde on 04/17/16. My clinical findings support the need for the requested home health care services because: Ltd mobility - disease progression I certify that my clinical findings support that this patient is homebound because: Unsafe to leave home unassisted Sin Mendoza MD Apr 17, 2016 11:40
[2016-04-17] MEDS ORDERED: LEVA750T PO (11:44)
--- NOTE | 2016-04-17 11:46 | HHI.FF ---
Face to Face Verification Diagnosis: (1) Fibrillation, atrial Home Health Nursing Order: Medical education Medication education-adverse effect Nursing assessment with vital signs I have seen patient Viviane Elizalde on 04/17/16. My clinical findings support the need for the requested home health care services because: Ltd mobility - disease progression Patient has SOB I certify that my clinical findings support that this patient is homebound because: Unsafe to leave home unassisted Sin Mendoza MD Apr 17, 2016 11:45
[2016-04-17] MEDS: traMADol HCL 50 MG TAB PO PRN ×2 (12:02→18:17)
[2016-04-17] MEDS: SODIUM CHLOR 0.9% 1000 ML INJ 1,000 ML IV SCH (14:49)
[2016-04-17] MEDS ORDERED: LEVOFLOXACIN 750 MG PREMIX INJ 150 ML IV SCH (16:00)
[2016-04-17] MEDS: PRAVASTATIN SOD 80 MG TAB PO SCH (21:17)
[2016-04-17] MEDS: CARISOPRODOL 350 MG TAB PO SCH (21:17)
[2016-04-17] MEDS: TEMAZEPAM 15 MG CAP PO PRN (21:21)
[2016-04-18] VITALS (8 sets, daily range): BP systolic 91–110; BP diastolic 50–58; PULSE 64–72; RESP 18–20; TEMP 97.5–98.1; O2SAT 93–96
[2016-04-18] MEDS: diphenhydrAMINE HCL 25 MG CAP PO PRN ×3 (02:20→16:34)
[2016-04-18 06:27] LABS: AUTOMATED NEUTROPHIL # 5.1 TH/MM3 (1.8-7.7); BASOPHIL % 0.1 % (0.0-2.0); EOSINOPHIL # 0.1 TH/MM3 (0-0.4); LYMPH % 8.7 % (9.0-44.0); LYMPHOCYTE # 0.6 TH/MM3 (1.0-4.8); MEAN CELL VOLUME 87.2 FL (80.0-100.0); MEAN CORPUSCULAR HEMOGLOBIN 28.7 PG (27.0-34.0); MEAN CORPUSCULAR HGB CONC 32.9 % (32.0-36.0); MONO % 16.2 % (0.0-8.0); PLATELET COUNT 377 TH/MM3 (150-450); RED BLOOD COUNT 3.55 MIL/MM3 (4.00-5.30); RED CELL DISTRIBUTION WIDTH 15.3 % (11.6-17.2); WHITE BLOOD COUNT 6.9 TH/MM3 (4.0-11.0)
[2016-04-18 06:29] LABS: HEMO FLAGS AUTO DIFF
[2016-04-18 06:51] LABS: BICARBONATE 27.6 MEQ/L (21.0-32.0); MAGNESIUM 2.2 MG/DL (1.5-2.5); POTASSIUM 4.3 MEQ/L (3.5-5.1)
[2016-04-18 08:26] LABS: BANDS 4 % (0-6); EOSINOPHILS 1 % (0-4); MYELOCYTES 1 % (0-0); NEUTROPHIL # MANUAL DIFF 5.7 TH/MM3 (1.8-7.7); PLATELET ESTIMATE SMEAR NORMAL (NORMAL); PLATELET MORPHOLOGY NORMAL (NORMAL); POLYS (SEG NEUTROPHILS) 78 % (16-70); SCAN/DIFF FINAL DIFF MANUAL; WBC DIFF SAMPLE 100
[2016-04-18] MEDS: FERROUS SULFATE 325 MG (65 MG ELEMENTAL IRON) TAB PO SCH ×2 (09:00→20:56)
[2016-04-18] MEDS: traMADol HCL 50 MG TAB PO PRN ×2 (09:09→16:34)
[2016-04-18] MEDS: SODIUM CHLORIDE 0.9% FLUSH 5 ML FLUSH FLUSH SCH ×2 (09:09→20:55)
[2016-04-18] MEDS: AZITHROMYCIN 250 MG TAB PO SCH (09:10)
[2016-04-18] MEDS: AMIODARONE 200 MG TAB PO SCH (09:10)
[2016-04-18] MEDS: POTASSIUM CHLORIDE 10 MEQ CAP PO SCH ×3 (09:11→18:13)
[2016-04-18] MEDS: DOCUSATE SODIUM 100 MG CAP PO SCH ×2 (09:12→20:56)
[2016-04-18] MEDS: PANTOPRAZOLE SOD 20 MG DELAYED RELEASE TAB PO SCH ×2 (09:12→20:56)
[2016-04-18] MEDS: ESCITALOPRAM OXALATE 20 MG TAB PO SCH (09:12)
[2016-04-18] MEDS: DIGOXIN 0.125 MG TAB PO SCH (09:13)
[2016-04-18] MEDS: CALAMINE/PRAMOXINE LOTION 180 ML BTL TOPICAL SCH ×2 (09:17→20:57)
[2016-04-18] MEDS: LEVOTHYROXINE SODIUM 150 MCG TAB PO SCH (09:17)
[2016-04-18] MEDS: SUCRALFATE 1 GM TAB PO SCH ×2 (11:52→20:56)
[2016-04-18] MEDS: SODIUM CHLOR 0.9% 1000 ML INJ 1,000 ML IV SCH (13:46)
--- NOTE | 2016-04-18 16:18 | HHI.PR ---
Subjective Remarks Follow-up for generalized weakness No overnight events, blood pressure still soft, no nausea or vomiting. No diarrhea. Patient agreed to going to [facility] when ready for discharge. Did not sleep well last night. Objective Vitals Vital Signs Date Time Temp Pulse Resp B/P Pulse Ox O2 Delivery O2 Flow Rate FiO2 04/18/16 12:20 97.6 70 20 91/50 93 04/18/16 09:00 65 04/18/16 08:36 98.1 72 20 94/50 94 04/18/16 04:38 97.9 70 18 98/50 94 04/18/16 00:26 97.5 70 20 97/53 96 04/17/16 21:36 98 04/17/16 20:01 97.7 80 18 119/56 98 04/17/16 20:00 98 Room Air 04/17/16 20:00 71 I/O 04/17/16 04/17/16 04/17/16 04/18/16 04/18/16 04/18/16 07:00 15:00 23:00 07:00 15:00 23:00 Intake Total 480 ml 1012 ml 0 ml Balance 480 ml 1012 ml 0 ml Intake Oral 480 ml 240 ml IV Total 772 ml 0 ml # Voids 6 5 2 3 # Bowel Movements 2 1 Result Diagram: 04/18/1660304/18/16 0604 Objective Remarks GENERAL: Well-developed, well-nourished in no distress SKIN: Warm and dry. HEAD: Atraumatic. Normocephalic. EYES: Pupils equal and round. No scleral icterus. No injection or drainage. ENT: No nasal bleeding or discharge. Mucous membranes pink and moist. NECK: Trachea midline. No JVD. CARDIOVASCULAR: Regular rate and rhythm. RESPIRATORY: No accessory muscle use. Decreased breath sounds equal bilaterally. GASTROINTESTINAL: Abdomen soft, tender left lower quadrant, nondistended. MUSCULOSKELETAL: Extremities without clubbing, cyanosis, or edema. No obvious deformities. NEUROLOGICAL: Awake and alert. No obvious cranial nerve deficits. Motor grossly within normal limits. Five out of 5 muscle strength in the arms and legs. Normal speech. PSYCHIATRIC: Appropriate mood and affect; insight and judgment normal. Procedures Non- A/P Problem List: (1) Impaired mobility and ADLs ICD Code: Z74.09 Status: Acute (2) History of cardiac arrhythmia ICD Code: Z86.79 Status: Chronic (3) GERD (gastroesophageal reflux disease) ICD Code: K21.9 Status: Chronic (4) Tobacco abuse ICD Code: Z72.0 Status: Chronic (5) Hypercholesterolemia ICD Code: E78.0 Status: Chronic (6) Insomnia ICD Code: G47.00 Status: Chronic (7) Anemia ICD Code: D64.9 Status: Acute Assessment and Plan 80-year-old female with past medical history of HLD, A. fib, GERD, hypothyroidism, chronic back pain who presented after a fall Generalized weakness and falls: Patient reports multiple falls recently. Unclear etiology, possibly multifactorial from deconditioning, rule out other underlying medical etiologies. Labs reviewed, hemoglobin slightly decreased. Hyponatremia appears chronic. Digoxin level therapeutic, no obvious source of infection. Continue physical therapy, discharged to [facility]. -PT eval, recommends HHC. Start IVF. Blood pressure still low Insomnia-increase Restoril Acute blood loss anemia Hemoglobin 9.1, previously 10.8 on 03/18/13. INR now subtherapeutic, trended to 6.4. Likely secondary to hematoma. Iron studies showed iron deficiency. Status post transfusion. Monitor. Left rectus and iliopsoas hematoma. LLQ tender mass on exam prompted abdomen and pelvis CT. CT showed rectus hematoma and iliopsoas hematoma on the left, discussed with Dr. Rodriguez, unlikely malignancy based on history and exam. Discussed with general surgery, Dr. Leon, no operative intervention, conservative management. Consulted IR, unlikely intervention. Coagulopathy INR 4.0. INR likely increased from being on Cipro recently. Bleeding as above. INR now subtherapeutic. Atrial fibrillation -Hold Coumadin with bleeding as above (patient and family aware, anticoagulation risk outweighs benefits), INR now subtherapeutic -Continue amiodarone and consider restarting Coumadin if hemoglobin is stable. Acute on chronic thoracic spine pain status post previous kyphoplasty Likely exacerbated by recent fall -CT thoracic spine with indeterminate compression injuries Sepsis (leukocytosis and tachypnea) secondary to pneumonia Episode of oxygen saturation 88% on room air on admission. Initial chest x-ray reviewed and unremarkable. Possibly secondary to anemia as above vs chronic COPD vs pneumonia vs volume overload from transfusions. No wheezing on exam, unlikely COPD exacerbation. Currently satting well on room air. Rhonchi on exam. Recent outpatient treatment with Cipro. -Treating anemia as above -O2 and nebs as needed -Tobacco cessation - Continue azithromycin and Levaquin. -Repeat chest x-ray image interpreted by me with pneumonia. negative urinary pneumococcal and Legionella antigen and blood cultures as needed Constipation: Bowel regimen with Colace and milk of magnesia. Other chronic medical conditions include hypothyroidism, chronic back pain, GERD , hyperlipidemia, insomnia, depression: Stable at this time and will continue home medications as indicated. DVT prophylaxis: Coumadin on hold with bleeding. SCDs. Discharge Planning Discharged to [facility] in the next 2 days. Problem Qualifiers (1) GERD (gastroesophageal reflux disease): Qualified Code: K21.9 - Gastroesophageal reflux disease, esophagitis presence not specified (2) Insomnia: Qualified Code: G47.00 - Insomnia, unspecified type (3) Anemia: Qualified Code: D62 - Acute posthemorrhagic anemia Rut Nova MD Apr 18, 2016 16:18
[2016-04-18] MEDS: PRAVASTATIN SOD 80 MG TAB PO SCH (20:55)
[2016-04-18] MEDS: CARISOPRODOL 350 MG TAB PO SCH (20:56)
[2016-04-18] MEDS: TEMAZEPAM 15 MG CAP PO PRN (20:57)
[2016-04-19] VITALS (8 sets, daily range): BP systolic 87–121; BP diastolic 47–64; PULSE 64–76; RESP 16–18; TEMP 97.1–98.2; O2SAT 92–98
[2016-04-19] MEDS: SODIUM CHLOR 0.9% 1000 ML INJ 1,000 ML IV SCH (04:52)
[2016-04-19] MEDS: SODIUM CHLORIDE 0.9% FLUSH 5 ML FLUSH FLUSH SCH ×2 (09:00→21:00)
[2016-04-19] MEDS: DOCUSATE SODIUM 100 MG CAP PO SCH ×2 (09:00→21:54)
[2016-04-19] MEDS: DIGOXIN 0.125 MG TAB PO SCH (09:00)
[2016-04-19] MEDS: FERROUS SULFATE 325 MG (65 MG ELEMENTAL IRON) TAB PO SCH ×2 (09:00→21:54)
[2016-04-19] MEDS: AZITHROMYCIN 250 MG TAB PO SCH (09:11)
[2016-04-19] MEDS: POTASSIUM CHLORIDE 10 MEQ CAP PO SCH ×3 (09:11→17:20)
[2016-04-19] MEDS: traMADol HCL 50 MG TAB PO PRN (09:11)
[2016-04-19] MEDS: SUCRALFATE 1 GM TAB PO SCH ×2 (09:11→21:54)
[2016-04-19] MEDS: PANTOPRAZOLE SOD 20 MG DELAYED RELEASE TAB PO SCH ×2 (09:11→21:54)
[2016-04-19] MEDS: LEVOTHYROXINE SODIUM 150 MCG TAB PO SCH (09:11)
[2016-04-19] MEDS: ESCITALOPRAM OXALATE 20 MG TAB PO SCH (09:12)
[2016-04-19] MEDS: AMIODARONE 200 MG TAB PO SCH (09:12)
[2016-04-19] MEDS: CALAMINE/PRAMOXINE LOTION 180 ML BTL TOPICAL SCH ×2 (09:14→21:00)
[2016-04-19] MEDS: diphenhydrAMINE HCL 25 MG CAP PO PRN ×2 (09:18→14:00)
--- NOTE | 2016-04-19 13:08 | HHI.PR ---
Subjective Remarks Follow-up hypotension Blood pressure stable, patient still feel weak and tired. Diffusing ferrous sulfate sometimes but now agreed to take it. No nausea or vomiting. Afebrile. Shortness of breath resolved. Objective Vitals Vital Signs Date Time Temp Pulse Resp B/P Pulse Ox O2 Delivery O2 Flow Rate FiO2 04/19/16 12:41 97.5 64 16 102/54 98 04/19/16 08:20 97.8 68 16 92/50 93 04/19/16 04:50 97.1 70 18 87/47 92 04/19/16 00:50 97.3 76 18 93/50 92 04/18/16 20:11 97.6 64 18 108/53 96 04/18/16 19:00 66 04/18/16 16:16 97.9 65 20 110/58 96 I/O 04/18/16 04/18/16 04/18/16 04/19/16 04/19/16 04/19/16 07:00 15:00 23:00 07:00 15:00 23:00 Intake Total 0 ml 660 ml Output Total 350 ml Balance 0 ml 310 ml Intake Oral 660 ml IV Total 0 ml Output Urine Total 350 ml # Voids 3 2 2 # Bowel Movements 1 0 Result Diagram: 04/18/1604 04/18/16 0604 Objective Remarks GENERAL: Well-developed, well-nourished in no distress SKIN: Warm and dry. HEAD: Atraumatic. Normocephalic. EYES: Pupils equal and round. No scleral icterus. No injection or drainage. ENT: No nasal bleeding or discharge. Mucous membranes pink and moist. NECK: Trachea midline. No JVD. CARDIOVASCULAR: Regular rate and rhythm. RESPIRATORY: No accessory muscle use. Decreased breath sounds equal bilaterally and better. GASTROINTESTINAL: Abdomen soft, tender left lower quadrant, nondistended. MUSCULOSKELETAL: Extremities without clubbing, cyanosis, or edema. No obvious deformities. NEUROLOGICAL: Awake and alert. No obvious cranial nerve deficits. Motor grossly within normal limits. Five out of 5 muscle strength in the arms and legs. Normal speech. PSYCHIATRIC: Appropriate mood and affect; insight and judgment normal. Procedures Non- A/P Problem List: (1) Impaired mobility and ADLs ICD Code: Z74.09 Status: Acute (2) History of cardiac arrhythmia ICD Code: Z86.79 Status: Chronic (3) GERD (gastroesophageal reflux disease) ICD Code: K21.9 Status: Chronic (4) Tobacco abuse ICD Code: Z72.0 Status: Chronic (5) Hypercholesterolemia ICD Code: E78.0 Status: Chronic (6) Insomnia ICD Code: G47.00 Status: Chronic (7) Anemia ICD Code: D64.9 Status: Acute Assessment and Plan 80-year-old female with past medical history of HLD, A. fib, GERD, hypothyroidism, chronic back pain who presented after a fall Generalized weakness and falls: Patient reports multiple falls recently. Unclear etiology, possibly multifactorial from deconditioning, rule out other underlying medical etiologies. Labs reviewed, hemoglobin slightly decreased. Hyponatremia appears chronic. Digoxin level therapeutic, no obvious source of infection. Continue physical therapy, discharged to [facility] likely tomorrow. -PT eval, recommends HHC. Stop IVF, check orthostatics. Insomnia-increase Restoril Acute blood loss anemia Hemoglobin 9.1, previously 10.8 on 03/18/13. INR now subtherapeutic, trended to 6.4. Likely secondary to hematoma. Iron studies showed iron deficiency. Status post transfusion. Monitor. Continue ferrous sulfate. Left rectus and iliopsoas hematoma. LLQ tender mass on exam prompted abdomen and pelvis CT. CT showed rectus hematoma and iliopsoas hematoma on the left, discussed with Dr. Rodriguez, unlikely malignancy based on history and exam. Discussed with general surgery, Dr. Leon, no operative intervention, conservative management. Consulted IR, unlikely intervention. Coagulopathy INR 4.0. INR likely increased from being on Cipro recently. Bleeding as above. Restart Coumadin tomorrow if hemoglobin is stable. Atrial fibrillation -Hold Coumadin with bleeding as above (patient and family aware, anticoagulation risk outweighs benefits), INR now subtherapeutic -Continue amiodarone and consider restarting Coumadin if hemoglobin is stable. Acute on chronic thoracic spine pain status post previous kyphoplasty Likely exacerbated by recent fall -CT thoracic spine with indeterminate compression injuries Sepsis (leukocytosis and tachypnea) secondary to pneumonia Episode of oxygen saturation 88% on room air on admission. Initial chest x-ray reviewed and unremarkable. Possibly secondary to anemia as above vs chronic COPD vs pneumonia vs volume overload from transfusions. No wheezing on exam, unlikely COPD exacerbation. Currently satting well on room air. Rhonchi on exam. Recent outpatient treatment with Cipro. -Treating anemia as above -O2 and nebs as needed -Tobacco cessation - Continue azithromycin and Levaquin, switch Levaquin to oral -Repeat chest x-ray image interpreted by me with pneumonia. negative urinary pneumococcal and Legionella antigen and blood cultures as needed Constipation: Bowel regimen with Colace and milk of magnesia. Other chronic medical conditions include hypothyroidism, chronic back pain, GERD , hyperlipidemia, insomnia, depression: Stable at this time and will continue home medications as indicated. DVT prophylaxis: Coumadin on hold with bleeding. SCDs. Discharge Planning Discharged to [facility]. Problem Qualifiers (1) GERD (gastroesophageal reflux disease): Qualified Code: K21.9 - Gastroesophageal reflux disease, esophagitis presence not specified (2) Insomnia: Qualified Code: G47.00 - Insomnia, unspecified type (3) Anemia: Qualified Code: D62 - Acute posthemorrhagic anemia Rut Nova MD Apr 19, 2016 13:08
[2016-04-19] MEDS ORDERED: LEVOFLOXACIN 500 MG TAB PO SCH (15:00)
[2016-04-19] MEDS: PRAVASTATIN SOD 80 MG TAB PO SCH (21:54)
[2016-04-19] MEDS: TEMAZEPAM 15 MG CAP PO PRN (21:54)
[2016-04-19] MEDS: CARISOPRODOL 350 MG TAB PO SCH (21:54)
[2016-04-20] VITALS: BP 116/5; PULSE 71; RESP 20; TEMP 97.9; O2SAT 96
[2016-04-20 04:00] VITALS: BP 104/56; PULSE 72; RESP 16; TEMP 97.7; O2SAT 95
[2016-04-20 08:29] VITALS: BP 137/65; PULSE 72; RESP 18; TEMP 98.4; O2SAT 94
[2016-04-20] MEDS ORDERED: ALBU0.63 NEB (08:39)
[2016-04-20] MEDS ORDERED: LEVA500T PO (08:39)
[2016-04-20] MEDS ORDERED: FERR325T PO (08:39)
[2016-04-20] MEDS ORDERED: TEMA30CA PO (08:40)
[2016-04-20] MEDS ORDERED: TRAM50TA PO (08:40)
--- NOTE | 2016-04-20 08:59 | HHI.DS ---
Discharge Summary Admission Date Apr 12, 2016 at 04:46 Discharge Date: Apr 20, 2016 Admitting Diagnosis Generalized Weakness (1) Impaired mobility and ADLs ICD Code: Z74.09 Diagnosis: Principal (2) History of cardiac arrhythmia ICD Code: Z86.79 Diagnosis: Secondary (3) GERD (gastroesophageal reflux disease) ICD Code: K21.9 Diagnosis: Secondary (4) Tobacco abuse ICD Code: Z72.0 Diagnosis: Secondary (5) Hypercholesterolemia ICD Code: E78.0 Diagnosis: Secondary (6) Insomnia ICD Code: G47.00 Diagnosis: Secondary (7) Anemia ICD Code: D64.9 Diagnosis: Principal Procedures Non- Brief History - From Admission 80-year-old female with past medical history of HLD, A. fib, GERD, hypothyroidism, chronic back pain who presented after a fall. The patient states she presented because yesterday she fell trying to transfer from her hospital at home to the bedside commode. She states she lost her balance. She denies any associated dizziness or associated symptoms prior to the fall. She denies any acute injury. She does state that she has chronic back pain. She states that for the past 2 weeks she's been having cough with intermittent fevers. She states the cough is dry. She denies any shortness of breath. She states that she's been on Cipro for the past 4 or 5 days. She denies any bleeding, dark or bloody stools. She denies any nausea, headache, unilateral weakness, or swallowing difficulties. She lives at home with her who helps take care of her. CBC/BMP: 04/18/16 0604 04/18/16 0604 Significant Findings Laboratory Tests Test 04/18/16 06:04 Red Blood Count 3.55 MIL/MM3 (4.00-5.30) Hemoglobin 10.2 GM/DL (11.6-15.3) Hematocrit 31.0 % (35.0-46.0) Mean Platelet Volume 6.5 FL (7.0-11.0) Neutrophils (%) (Auto) 74.0 % (16.0-70.0) Lymphocytes (%) (Auto) 8.7 % (9.0-44.0) Monocytes (%) (Auto) 16.2 % (0.0-8.0) Lymphocytes # (Auto) 0.6 TH/MM3 (1.0-4.8) Monocytes # (Auto) 1.1 TH/MM3 (0-0.9) Neutrophils % (Manual) 78 % (16-70) Lymphocytes % 8 % (9-44) Myelocytes 1 % (0-0) Estimat Glomerular Filtration 61 ML/MIN (>89) Rate Calcium Level 8.2 MG/DL (8.5-10.1) PE at Discharge GENERAL: Well-developed, well-nourished in no distress SKIN: Warm and dry. HEAD: Atraumatic. Normocephalic. EYES: Pupils equal and round. No scleral icterus. No injection or drainage. ENT: No nasal bleeding or discharge. Mucous membranes pink and moist. NECK: Trachea midline. No JVD. CARDIOVASCULAR: Regular rate and rhythm. RESPIRATORY: No accessory muscle use. Decreased breath sounds equal bilaterally and better. GASTROINTESTINAL: Abdomen soft, tender left lower quadrant, nondistended. MUSCULOSKELETAL: Extremities without clubbing, cyanosis, or edema. No obvious deformities. NEUROLOGICAL: Awake and alert. No obvious cranial nerve deficits. Motor grossly within normal limits. Five out of 5 muscle strength in the arms and legs. Normal speech. PSYCHIATRIC: Appropriate mood and affect; insight and judgment normal. Pt update on day of discharge No overnight events, severe generalized weakness. Denies any chest pain or shortness of breath. Afebrile. Hospital Course 80-year-old female with past medical history of HLD, A. fib, GERD, hypothyroidism, chronic back pain who presented after a fall and generalized weakness. Unclear etiology, likely multifactorial from deconditioning, ruled out other underlying medical etiologies. She had mild anemia on hospitalization. Hyponatremia appears chronic. Digoxin level therapeutic, no obvious source of infection. Orthostatics were negative. Patient had acute blood loss anemia secondary to left rectus and iliopsoas hematoma. LLQ tender mass on exam prompted abdomen and pelvis CT. CT showed rectus hematoma and iliopsoas hematoma on the left, discussed with Dr. Rodriguez, unlikely malignancy based on history and exam. Discussed with general surgery, Dr. Leon, no operative intervention, conservative management. Consulted IR, unlikely intervention. Coumadin was stopped. Hemoglobin was trended. Iron was started. Patient was also transfused. After several days, after checking serial hemoglobin and it remained stable, Coumadin was restarted and patient was discharged. Patient is on Coumadin for atrial fibrillation. Of note, she was also found to be in sepsis secondary to pneumonia, patient was started on azithromycin and Levaquin, she will finish 1 week course of Levaquin 04/22/16 Pt Condition on Discharge: Good Discharge Disposition: Discharge to SNF Discharge Time: > 30 minutes Discharge Instructions DIET: Follow Instructions for: Heart Healthy Diet Activities you can perform: Regular-No Restrictions Follow up Referrals: PCP Follow-up - 1 Week New Orders: CBC NO DIFF - 04/22/16 PT/INR New Medications: Albuterol Neb (Albuterol Neb) 0.63 Mg/3 Ml Neb 0.63 MG NEB Q4HR NEB PRN SOB/WHEEZING #30 NEBULE Ferrous Sulfate (Ferrous Sulfate) 325 Mg Tab 325 MG PO TID anemia #90 TAB Levofloxacin (Levaquin) 500 Mg Tab 500 MG PO DAILY@15 pneumonia #2 TAB Continued Medications: Amiodarone (Amiodarone) 100 Mg Tab 100 MG PO DAILY Regulate Heart Beat #30 Ref 0 TAB Carisoprodol (Soma) 350 Mg Tab 350 MG PO BID PRN PAIN Ref 0 TAB Carisoprodol (Soma) 350 Mg Tab 175 MG PO HS PAIN Ref 0 TAB Digoxin (Digitek) 0.125 Mg Tab 0.125 MG PO DAILY Regulate Heart Beat #30 Ref 0 TAB Escitalopram (Escitalopram) 20 Mg Tab 20 MG PO DAILY #30 Ref 0 TAB Levothyroxine (Synthroid) 150 Mcg Tab 150 MCG PO DAILY Thyroid #30 Ref 0 TAB Omeprazole (Omeprazole) 20 Mg Tab 20 MG PO BID #30 Ref 0 TAB Potassium Chloride ER (Potassium Chloride ER) 10 Meq Cap 10 MEQ PO TID Electrolyte Replacement #60 Ref 0 CAP Simvastatin (Simvastatin) 40 Mg Tab 40 MG PO HS Cholesterol Management #30 Ref 0 TAB Sucralfate (Sucralfate) 1 Gm Tab 1 GM PO BID on empty stomach Duodenal ulcer #90 Ref 0 TAB Temazepam (Temazepam) 30 Mg Cap 30 MG PO HS PRN INSOMNIA #10 Ref 0 CAP (This prescription has been renewed) Tramadol (Tramadol) 50 Mg Tab 50 MG PO Q6H PRN PAIN #10 Ref 0 TAB (This prescription has been renewed) Warfarin (Warfarin) 5 Mg Tab 5 MG PO MW Blood Clot Prevention #30 Ref 0 TAB Warfarin (Warfarin) 1 Mg Tab 1 MG PO SAT AND SUN Blood Clot Prevention #30 Ref 0 TAB Rut Nova MD Apr 20, 2016 08:59
[2016-04-20] MEDS: CALAMINE/PRAMOXINE LOTION 180 ML BTL TOPICAL SCH (09:00)
[2016-04-20 09:40] LABS: AUTOMATED NEUTROPHIL # 3.9 TH/MM3 (1.8-7.7); BASOPHIL % 0.4 % (0.0-2.0); EOSINOPHIL # 0.1 TH/MM3 (0-0.4); EOSINOPHIL % 1.6 % (0.0-4.0); HEMATOCRIT 28.2 % (35.0-46.0); HEMO FLAGS AUTO DIFF; LYMPH % 12.5 % (9.0-44.0); LYMPHOCYTE # 0.7 TH/MM3 (1.0-4.8); MEAN CELL VOLUME 88.1 FL (80.0-100.0); MEAN CORPUSCULAR HEMOGLOBIN 29.1 PG (27.0-34.0); MONO % 19.4 % (0.0-8.0); NEUT % 66.1 % (16.0-70.0); PLATELET COUNT 321 TH/MM3 (150-450); RED BLOOD COUNT 3.21 MIL/MM3 (4.00-5.30); RED CELL DISTRIBUTION WIDTH 15.1 % (11.6-17.2); WHITE BLOOD COUNT 5.9 TH/MM3 (4.0-11.0)
[2016-04-20 09:46] LABS: BICARBONATE 25.4 MEQ/L (21.0-32.0)
[2016-04-20] MEDS: AMIODARONE 200 MG TAB PO SCH (10:01)
[2016-04-20] MEDS: LEVOTHYROXINE SODIUM 150 MCG TAB PO SCH (10:01)
[2016-04-20] MEDS: DOCUSATE SODIUM 100 MG CAP PO SCH (10:01)
[2016-04-20] MEDS: POTASSIUM CHLORIDE 10 MEQ CAP PO SCH (10:02)
[2016-04-20] MEDS: PANTOPRAZOLE SOD 20 MG DELAYED RELEASE TAB PO SCH (10:02)
[2016-04-20] MEDS: ESCITALOPRAM OXALATE 20 MG TAB PO SCH (10:03)
[2016-04-20] MEDS: AZITHROMYCIN 250 MG TAB PO SCH (10:03)
[2016-04-20] MEDS: SUCRALFATE 1 GM TAB PO SCH (10:03)
[2016-04-20] MEDS: DIGOXIN 0.125 MG TAB PO SCH (10:03)
[2016-04-20] MEDS: FERROUS SULFATE 325 MG (65 MG ELEMENTAL IRON) TAB PO SCH (10:03)
[2016-04-20] MEDS: SODIUM CHLORIDE 0.9% FLUSH 5 ML FLUSH FLUSH SCH (10:09)
[2016-04-20] MEDS: diphenhydrAMINE HCL 25 MG CAP PO PRN (10:13)
[2016-04-20 10:59] LABS: PROTHROMBIN TIME - PATIENT 11.2 SEC (9.8-11.6)
[2016-04-20 11:16] LABS: OVALOCYTES 1+ (NORMAL); SCAN/DIFF AUTO DIFF CONFIRMED
[2016-04-20 12:15] VITALS: O2SAT 95
[2016-04-20 12:29] VITALS: BP 108/52; PULSE 74; RESP 18; TEMP 98.4; O2SAT 96
--- NOTE | 2016-04-22 17:08 | PQ ---
Physician Query Response Document PATIENT: RUTHY FINNEGAN : 1935 ADMIT DATE: 04/12/2016 4:46 AM DISCH DATE: 04/20/2016 3:02 PM RESPONDING PROVIDER #: Jerrica QUERY TEXT: Present On Admission It is unclear whether the diagnosis of - SEPSIS SECONDARY TO PNEUMONIA - was present on admission. P lease clarify the POA status Such as: -- Present on admission -- Not present on admission The patient's Clinical Indicators include: 04/12/16 Admission Diagnosis Generalized Weakness PER 04/15/16 PROGRESS NOTE - Sepsis (leukocytosis and tachypnea) secondary to pneumonia Episode of oxygen saturation 88% on room air on admission. Query created by: Hollie Brown on 04/17/2016 1:35 PM RESPONSE TEXT: Sepsis due to Pneumonia not present on admission Electronically signed by: Sin Mendoza MD 04/22/2016 5:04 PM
--- NOTE | 2016-04-27 12:02 | PQ ---
Physician Query Response Document PATIENT: RUTHY FINNEGAN : 1935 ADMIT DATE: 04/12/2016 4:46 AM DISCH DATE: 04/20/2016 3:02 PM RESPONDING PROVIDER #: jud QUERY TEXT: Clarification of Clinical Diagnostic Findings Please clarify documentation or clinical relevance for the clinical / diagnostic findings or whether those are insignificant or unable to be further specified. Patient's admitting diagnosis (reason for change from OBS to INPT) is If you have any additional questions/comments and/or concerns The patient's Clinical Indicators include: Dr. NOVA, this patient was placed in Observation initially. Patient was then changed to ADMISSION. Please read the question below and answer to the best of your ability. THANK YOU Query created by: Enrike Mariano on 04/25/2016 7:42 AM RESPONSE TEXT: Acute blood loss anemia secondary to hematoma and sepsis secondary to PNA Electronically signed by: Rut Nova MD 04/27/2016 11:58 AM
== END 2016-04-20 15:02 | DRG 871 ==
LOC: NEPE 01:43 → OBSVTOIN 04:46 → NEDA 04:46 → NEDH 08:55 → N05A 19:36
PROVIDERS: ADMIT Hospitalist; ATTEND Hospitalist
PROC: 0T9B70Z Drainage of Bladder with Drainage Device, Via Natural or Artificial Opening (ICD-10-PCS; principal; 2016-04-12)
PROC: 30233K1 Transfusion of Nonautologous Frozen Plasma into Peripheral Vein, Percutaneous Approach (ICD-10-PCS; 2016-04-12)
PROC: 30233N1 Transfusion of Nonautologous Red Blood Cells into Peripheral Vein, Percutaneous Approach (ICD-10-PCS; 2016-04-13)
DX: A41.9 Sepsis, unspecified organism (principal); J96.01 Acute respiratory failure with hypoxia; J18.9 Pneumonia, unspecified organism; D62 Acute posthemorrhagic anemia; E87.1 Hypo-osmolality and hyponatremia; E61.1 Iron deficiency; S30.1XXA Contusion of abdominal wall, initial encounter; I48.91 Unspecified atrial fibrillation; R53.1 Weakness; I10 Essential (primary) hypertension; K21.0 Gastro-esophageal reflux disease with esophagitis; G47.00 Insomnia, unspecified; E78.00 Pure hypercholesterolemia, unspecified; Z74.09 Other reduced mobility; W19.XXXA Unspecified fall, initial encounter; M19.90 Unspecified osteoarthritis, unspecified site; I25.10 Atherosclerotic heart disease of native coronary artery without angina pectoris; I73.9 Peripheral vascular disease, unspecified; K44.9 Diaphragmatic hernia without obstruction or gangrene; Z79.01 Long term (current) use of anticoagulants; G89.29 Other chronic pain; M54.6 Pain in thoracic spine; E78.5 Hyperlipidemia, unspecified; E03.9 Hypothyroidism, unspecified; F32.9 Major depressive disorder, single episode, unspecified; Z96.653 Presence of artificial knee joint, bilateral; F17.200 Nicotine dependence, unspecified, uncomplicated; S70.12XA Contusion of left thigh, initial encounter; Y93.9 Activity, unspecified; Y92.9 Unspecified place or not applicable; K59.00 Constipation, unspecified; R29.6 Repeated falls; L27.0 Generalized skin eruption due to drugs and medicaments taken internally; T36.1X5A Adverse effect of cephalosporins and other beta-lactam antibiotics, initial encounter; Y92.239 Unspecified place in hospital as the place of occurrence of the external cause
CPT/HCPCS: 36430; 51702; 71010; 72128; 74177; 80048; 80053; 80162; 80307; 80329; 81001; 82550; 82552; 82728; 83540; 83550; 83735; 84443; 84484; 85007; 85014; 85018; 85025; 85027; 85610; 85730; 86850; 86900; 86901; 86920; 86927; 87449; 93005; G0480; G8987-GP; G8988-GP; J0696; J1940; J1956; J7030; J7040; J7050; P9016; P9017; Q9963; Q9967

== ENCOUNTER 2017-04-16 06:18 | Inpatient (IN) | payer MEDICARE ==
[2017-04-16] VITALS (12 sets, daily range): BP systolic 118–152; BP diastolic 58–77; PULSE 72–101; RESP 22–29; TEMP 97.4–98.3; O2SAT 92–96
[~2017-04-16] VITALS: Ht 162.6 cm; Wt 56.0 kg
[~2017-04-16 06:18] MED LIST changes: +ALBU0.63 NEB; +AMIO0.1T PO; -AMIO200 PO; +DIGO1TAB59 PO; -ESCI10TA PO; +ESCI20TA PO; +FERR325T PO; -HYDR12.56 PO; -K-TA10TA5 PO; -LANO0.1212 PO; +LEVA500T PO; -OMEP20TA PO; +OMEP20TA93 PO; +POTA10CA PO; -SOMA250T PO; +SOMA350T PO; -SUCR1S PO; +SUCR1TAB PO; -TEMA15CA PO; +TEMA30CA PO; +TRAM50TA PO; -ULTR50TA PO; +WARF-23 PO; -WARF-60 PO; +WARF4TAB52 PO
[2017-04-16] MEDS ORDERED: SODIUM CHLOR 0.9% 1000 ML INJ 1,000 ML IV SCH (06:21)
[2017-04-16] MEDS ORDERED: SODIUM CHLORIDE 0.9% FLUSH 10 ML FLUSH IV FLUSH PRN ×2 (06:30→10:00)
--- NOTE | 2017-04-16 06:39 | PD ---
HPI Chief Complaint: Altered Mental Status Time Seen by Provider: 06:21 Travel History International Travel<30 days: No Contact w/Intl Traveler<30days: No Traveled to known affect area: No History of Present Illness HPI Patient is an 81-year-old female who comes in due to altered mental status. EMS brings her in from home, where her says she has been sick for the past week. He reports her having diarrhea. Per EMS, she was hypotensive on scene. She is awake, and we'll try to answer questions. She says she has pain all over. She does say that she has been vomiting. She says she has felt sick for the past 5 or 6 days. She does not Provide much history beyond this. [facility] Past Medical History Arthritis: Yes Blood Disorders: No Heart Rhythm Problems: Yes (IRREGULAR) Cancer: No Cardiovascular Problems: Yes (Cardiac arrhythmia; CAD;PVD) High Cholesterol: Yes COPD: Yes Diabetes: No Diminished Hearing: No Endocrine: No Gastrointestinal Disorders: Yes GERD: Yes Genitourinary: No Headaches: Yes Hepatitis: No Hiatal Hernia: Yes Hypertension: Yes Immune Disorder: No Musculoskeletal: Yes Neurologic: No Psychiatric: No Reproductive: No Respiratory: Yes ?: Not Menopausal: Yes Past Surgical History Abdominal Surgery: Yes (appendectomy; surgical intervention for small bowel osbstruction) AICD: No Arteriovenous Shunt: No Body Medical Devices: LEFT BREAST LUMPECTOMY Eye Surgery: Yes (bilateral cataract removal) Gynecologic Surgery: Yes (partial hysterectomy) Hysterectomy: Yes (PARTIAL) Insulin Pump: No Joint Replacement: No Pacemaker: No Thoracic Surgery: Yes (T11 KYPHOPLASTY) Other Surgery: Yes (LEFT CORATID ENDARECHTOMY) Social History Alcohol Use: No Tobacco Use: Yes (1/2 PPD) Substance Use: No Allergies-Medications (Allergen,Severity, Reaction): Coded Allergies: adhesive (Unverified Allergy, Severe, 11/19/16) codeine (Unverified Allergy, Severe, N/V, 11/19/16) latex (Unverified Allergy, Severe, 11/19/16) propoxyphene (Unverified Allergy, Severe, NASUSEA VOMITING, 11/19/16) hydrocodone (Unverified Allergy, Intermediate, NAUSEA, 11/19/16) ceftriaxone (Unverified Allergy, Mild, Rash, 11/19/16) The patient had reddness on her chest after the Rocephin Uncoded Allergies: HYDROCODONE (Adverse Reaction, Intermediate, 11/20/10) Reported Meds & Prescriptions Reported Meds & Active Scripts Active Tramadol (Tramadol HCl) 50 Mg Tab 50 Mg PO Q6H PRN Temazepam 30 Mg Cap 30 Mg PO HS PRN Levaquin (Levofloxacin) 500 Mg Tab 500 Mg PO DAILY@15 Ferrous Sulfate 325 Mg Tab 325 Mg PO TID Albuterol Neb (Albuterol Sulfate) 0.63 Mg/3 Ml Neb 0.63 Mg NEB Q4HR NEB PRN Reported Soma (Carisoprodol) 350 Mg Tab 175 Mg PO HS Soma (Carisoprodol) 350 Mg Tab 350 Mg PO BID PRN Warfarin 1 Mg Tab 1 Mg PO SAT AND SUN Warfarin 5 Mg Tab 5 Mg PO MWF Escitalopram (Escitalopram Oxalate) 20 Mg Tab 20 Mg PO DAILY Amiodarone (Amiodarone HCl) 100 Mg Tab 100 Mg PO DAILY Simvastatin 40 Mg Tab 40 Mg PO HS Synthroid (Levothyroxine Sodium) 150 Mcg Tab 150 Mcg PO DAILY Digitek (Digoxin) 0.125 Mg Tab 0.125 Mg PO DAILY Omeprazole 20 Mg Tab 20 Mg PO BID Sucralfate 1 Gm Tab 1 Gm PO BID on empty stomach Potassium Chloride ER (Potassium Chloride) 10 Meq Cap 10 Meq PO TID Review of Systems ROS Limitations: Altered Mental Status Cardiovascular: No: Chest Pain or Discomfort Respiratory: Positive: Cough Gastrointestinal: Positive: Vomiting, Abdominal Pain Musculoskeletal: Positive: Myalgias Physical Exam Narrative GENERAL: Lethargic, but awakens easily. SKIN: Focused skin assessment warm/dry. No wounds or signs of infection. HEAD: Atraumatic. Normocephalic. EYES: Pupils equal and round and reactive. No scleral icterus. Sunken eyes. ENT: Dry mucous membranes. NECK: Trachea midline. No JVD. CARDIOVASCULAR: Regular rate and rhythm. No murmur appreciated. RESPIRATORY: No accessory muscle use. Clear to auscultation. Breath sounds equal bilaterally. GASTROINTESTINAL: Abdomen soft, nondistended. Diffuse tenderness to palpation. No rebound or guarding. MUSCULOSKELETAL: No obvious deformities. No clubbing. No cyanosis. No edema. NEUROLOGICAL: Lethargic. No obvious cranial nerve deficits. Motor grossly within normal limits. Normal speech. PSYCHIATRIC: Appropriate mood and affect; insight and judgment normal. Data Data Last Documented VS Vital Signs Date Time Temp Pulse Resp B/P (MAP) Pulse Ox O2 Delivery O2 Flow Rate FiO2 04/16/17 06:25 95 Nasal Cannula 2.00 04/16/17 06:21 97.4 75 22 118/58 (78) Orders Orders Electrocardiogram (04/16/17 06:21) Complete Blood Count With Diff (04/16/17 06:21) Comprehensive Metabolic Panel (04/16/17 06:21) Creatine Kinase (Cpk) (04/16/17 06:21) Prothrombin Time / Inr (Pt) (04/16/17 06:21) Act Partial Throm Time (Ptt) (04/16/17 06:21) Troponin I (04/16/17 06:21) Urinalysis - C+S If Indicated (04/16/17 06:21) Lactic Acid Sepsis Protocol (04/16/17 06:21) Blood Culture (04/16/17 06:21) Chest, Single Ap (04/16/17 06:21) Ct Brain W/O Iv Contrast(Rout) (04/16/17 06:21) Blood Glucose (04/16/17 06:21) Ecg Monitoring (04/16/17 06:21) Iv Access Insert/Monitor (04/16/17 06:21) Oximetry (04/16/17 06:21) Sodium Chloride 0.9% Flush (Ns Flush) (04/16/17 06:30) Sodium Chlor 0.9% 1000 Ml Inj (Ns 1000 M (04/16/17 06:21) Ct Abd/Pel W Iv Contrast(Rout) (04/16/17 ) Cath For Specimen (04/16/17 06:21) Labs Laboratory Tests Test 04/16/17 06:35 [facility] Medical Decision Making Medical Screen Exam Complete: Yes Emergency Medical Condition: Yes Medical Record Reviewed: Yes Interpretation(s) ECG shows NSR at 77, no ST elevation or depression, normal intervals. Differential Diagnosis Sepsis versus dehydration versus electrolyte abnormality versus UTI versus pneumonia versus intra-abdominal pathology Narrative Course Patient is an 81-year-old female brought in by EMS due to altered mental status. Exam shows tenderness to palpation of the abdomen. IV established, labs sent. Patient given IV fluids. CT head and abdomen and pelvis ordered. Patient signed out to Dr. Garcia to follow up testing and disposition the patient. Naty Lorenz MD Apr 16, 2017 06:39
--- NOTE | 2017-04-16 06:53 | RADRPT ---
EXAM DATE/TIME: 04/16/2017 06:32 [place] COMPARISON: CHEST SINGLE AP, April 14, 2016, 10:57. INDICATIONS : Shortness of breath, Cough. MEDICAL HISTORY : None. SURGICAL HISTORY : None. ENCOUNTER: Initial ACUITY: 1 day PAIN SCORE: 0/10 LOCATION: Bilateral chest FINDINGS: The cardiac silhouette is enlarged in transverse diameter. The lungs are free of acute parenchymal op acity. No effusions are identified. There is prominence of the aortic knob is with calcification rebecca acteristic of atherosclerotic vascular disease. CONCLUSION: 1. Cardiomegaly. No acute pulmonary disease. Sly West MD on April 16, 2017 at 6:51 Board Certified Radiologist. This report was verified electronically.
[2017-04-16 07:00] LABS: AUTOMATED NEUTROPHIL # 22.6 TH/MM3 (1.8-7.7); BASOPHIL % 0.1 % (0.0-2.0); HEMATOCRIT 43.3 % (35.0-46.0); HEMOGLOBIN 14.5 GM/DL (11.6-15.3); LYMPH % 2.2 % (9.0-44.0); LYMPHOCYTE # 0.6 TH/MM3 (1.0-4.8); MEAN CELL VOLUME 90.3 FL (80.0-100.0); MEAN CORPUSCULAR HEMOGLOBIN 30.2 PG (27.0-34.0); MEAN CORPUSCULAR HGB CONC 33.5 % (32.0-36.0); MEAN PLATELET VOLUME 6.8 FL (7.0-11.0); MONO % 8.1 % (0.0-8.0); NEUT % 89.6 % (16.0-70.0); PLATELET COUNT 326 TH/MM3 (150-450); RED CELL DISTRIBUTION WIDTH 14.5 % (11.6-17.2); WHITE BLOOD COUNT 25.2 TH/MM3 (4.0-11.0)
--- NOTE | 2017-04-16 07:04 | PD ---
Physical Exam Date Seen by Provider: Apr 16, 2017 Time Seen by Provider: 07:01 Narrative The patient is a 81-year-old female who was initially evaluate by the previous physician. Please refer to the initial history, physical, diagnostic evaluation , treatment modality plan. Data Data Last Documented VS Vital Signs Date Time Temp Pulse Resp B/P (MAP) Pulse Ox O2 Delivery O2 Flow Rate FiO2 04/16/17 08:53 72 28 125/60 (81) 92 Room Air 04/16/17 06:25 2.00 04/16/17 06:21 97.4 Orders Orders Electrocardiogram (04/16/17 06:21) Complete Blood Count With Diff (04/16/17 06:21) Comprehensive Metabolic Panel (04/16/17 06:21) Creatine Kinase (Cpk) (04/16/17:21) Prothrombin Time / Inr (Pt) (04/16/17 06:21) Act Partial Throm Time (Ptt) (04/16/17 06:21) Troponin I (04/16/17 06:21) Urinalysis - C+S If Indicated (04/16/17 06:21) Lactic Acid Sepsis Protocol (04/16/17 06:21) Blood Culture (04/16/17 06:21) Chest, Single Ap (04/16/17 06:21) Ct Brain W/O Iv Contrast(Rout) (04/16/17 06:21) Blood Glucose (04/16/17 06:21) Ecg Monitoring (04/16/17 06:21) Iv Access Insert/Monitor (04/16/17 06:21) Oximetry (04/16/17 06:21) Sodium Chloride 0.9% Flush (Ns Flush) (04/16/17 06:30) Sodium Chlor 0.9% 1000 Ml Inj (Ns 1000 M (04/16/17 06:21) Cath For Specimen (04/16/17 06:21) Influenzae A/B Antigen (04/16/17 07:04) Digoxin (04/16/17 07:05) Sodium Chlor 0.9% 1000 Ml Inj (Ns 1000 M (04/16/17 07:30) Urinary Catheter Insert/Apply (04/16/17 07:22) Ct Abd/Pel W/O Iv Contrast (04/16/17 ) Azithromycin Inj (Zithromax Inj) (04/16/17 08:26) Aztreonam Inj (Azactam Inj) (04/16/17 08:26) Morphine Inj (Morphine Inj) (04/16/17 08:45) Ondansetron Inj (Zofran Inj) (04/16/17 08:45) Urine Culture (04/16/17 07:40) Admit Order (Ed Use Only) (04/16/17 09:10) Labs Laboratory Tests Test 04/16/17 06:35 04/16/17 07:40 White Blood Count 25.2 TH/MM3 Red Blood Count 4.80 MIL/MM3 Hemoglobin 14.5 GM/DL Hematocrit 43.3 % Mean Corpuscular Volume 90.3 FL Mean Corpuscular Hemoglobin 30.2 PG Mean Corpuscular Hemoglobin Concent 33.5 % Red Cell Distribution Width 14.5 % Platelet Count 326 TH/MM3 Mean Platelet Volume 6.8 FL Neutrophils (%) (Auto) 89.6 % Lymphocytes (%) (Auto) 2.2 % Monocytes (%) (Auto) 8.1 % Eosinophils (%) (Auto) 0.0 % Basophils (%) (Auto) 0.1 % Neutrophils # (Auto) 22.6 TH/MM3 Lymphocytes # (Auto) 0.6 TH/MM3 Monocytes # (Auto) 2.0 TH/MM3 Eosinophils # (Auto) 0.0 TH/MM3 Basophils # (Auto) 0.0 TH/MM3 CBC Comment AUTO DIFF Differential Total Cells Counted 100 Neutrophils % (Manual) 82 % Band Neutrophils % 11 % Lymphocytes % 1 % Monocytes % 5 % Eosinophils % 1 % Neutrophils # (Manual) 23.4 TH/MM3 Differential Comment FINAL DIFF MANUAL Platelet Estimate NORMAL Platelet Morphology Comment NORMAL Red Cell Morphology Comment NORMAL Prothrombin Time 70.9 SEC Prothromb Time International Ratio 7.1 RATIO Activated Partial Thromboplast Time 53.0 SEC Blood Urea Nitrogen 19 MG/DL Creatinine 1.79 MG/DL Random Glucose 165 MG/DL Total Protein 7.1 GM/DL Albumin 3.0 GM/DL Calcium Level 8.0 MG/DL Alkaline Phosphatase 80 U/L Aspartate Amino Transf (AST/SGOT) 26 U/L Alanine Aminotransferase (ALT/SGPT) 20 U/L Total Bilirubin 0.5 MG/DL Sodium Level 126 MEQ/L Potassium Level 4.9 MEQ/L Chloride Level 92 MEQ/L Carbon Dioxide Level 17.9 MEQ/L Anion Gap 16 MEQ/L Estimat Glomerular Filtration Rate 27 ML/MIN Lactic Acid Level 4.7 mmol/L Total Creatine Kinase 97 U/L Troponin I LESS THAN 0.02 NG/ML Digoxin Level 2.3 NG/ML Urine Color YELLOW Urine Turbidity HAZY Urine pH 6.0 Urine Specific [place] 1.018 Urine Protein 30 mg/dL Urine Glucose (UA) NEG mg/dL Urine Ketones 10 mg/dL Urine Occult Blood NEG Urine Nitrite NEG Urine Bilirubin NEG Urine Urobilinogen 2.0 MG/DL Urine Leukocyte Esterase NEG Urine RBC 1 /hpf Urine WBC 2 /hpf Urine Squamous Epithelial Cells <1 /hpf Urine Bacteria RARE /hpf Urine Hyaline Casts 39 /lpf Urine Mucus MANY /lpf Microscopic Urinalysis Comment CATH-CULTURE IND MDM Medical Record Reviewed: Yes Supervised Visit with RASHIDA: No Interpretation(s) EKG reveals sinus rhythm with a rate of 77. Low QRS voltage in the extremity leads. Nonspecific ST changes. Laboratory Tests Test 04/16/17 06:35 04/16/17 07:40 White Blood Count 25.2 TH/MM3 Red Blood Count 4.80 MIL/MM3 Hemoglobin 14.5 GM/DL Hematocrit 43.3 % Mean Corpuscular Volume 90.3 FL Mean Corpuscular Hemoglobin 30.2 PG Mean Corpuscular Hemoglobin Concent 33.5 % Red Cell Distribution Width 14.5 % Platelet Count 326 TH/MM3 Mean Platelet Volume 6.8 FL Neutrophils (%) (Auto) 89.6 % Lymphocytes (%) (Auto) 2.2 % Monocytes (%) (Auto) 8.1 % Eosinophils (%) (Auto) 0.0 % Basophils (%) (Auto) 0.1 % Neutrophils # (Auto) 22.6 TH/MM3 Lymphocytes # (Auto) 0.6 TH/MM3 Monocytes # (Auto) 2.0 TH/MM3 Eosinophils # (Auto) 0.0 TH/MM3 Basophils # (Auto) 0.0 TH/MM3 CBC Comment AUTO DIFF Differential Total Cells Counted 100 Neutrophils % (Manual) 82 % Band Neutrophils % 11 % Lymphocytes % 1 % Monocytes % 5 % Eosinophils % 1 % Neutrophils # (Manual) 23.4 TH/MM3 Differential Comment FINAL DIFF MANUAL Platelet Estimate NORMAL Platelet Morphology Comment NORMAL Red Cell Morphology Comment NORMAL Prothrombin Time 70.9 SEC Prothromb Time International Ratio 7.1 RATIO Activated Partial Thromboplast Time 53.0 SEC Blood Urea Nitrogen 19 MG/DL Creatinine 1.79 MG/DL Random Glucose 165 MG/DL Total Protein 7.1 GM/DL Albumin 3.0 GM/DL Calcium Level 8.0 MG/DL Alkaline Phosphatase 80 U/L Aspartate Amino Transf (AST/SGOT) 26 U/L Alanine Aminotransferase (ALT/SGPT) 20 U/L Total Bilirubin 0.5 MG/DL Sodium Level 126 MEQ/L Potassium Level 4.9 MEQ/L Chloride Level 92 MEQ/L Carbon Dioxide Level 17.9 MEQ/L Anion Gap 16 MEQ/L Estimat Glomerular Filtration Rate 27 ML/MIN Lactic Acid Level 4.7 mmol/L Total Creatine Kinase 97 U/L Troponin I LESS THAN 0.02 NG/ML Digoxin Level 2.3 NG/ML Urine Color YELLOW Urine Turbidity HAZY Urine pH 6.0 Urine Specific [place] 1.018 Urine Protein 30 mg/dL Urine Glucose (UA) NEG mg/dL Urine Ketones 10 mg/dL Urine Occult Blood NEG Urine Nitrite NEG Urine Bilirubin NEG Urine Urobilinogen 2.0 MG/DL Urine Leukocyte Esterase NEG Urine RBC 1 /hpf Urine WBC 2 /hpf Urine Squamous Epithelial Cells <1 /hpf Urine Bacteria RARE /hpf Urine Hyaline Casts 39 /lpf Urine Mucus MANY /lpf Microscopic Urinalysis Comment CATH-CULTURE IND Last Impressions Head CT 04/16/17620 Signed Impressions: Service Date/Time: Sunday, April 16, 2017 08:09 - CONCLUSION: Cerebral atrophy and chronic ischemic small vessel vasculopathy. Raul Cevallos MD Chest X-Ray 04/16/17620 Signed Impressions: Service Date/Time: Sunday, April 16, 2017 06:32 - CONCLUSION: 1. Cardiomegaly. No acute pulmonary disease. Sly West MD Abdomen/Pelvis CT 04/16/17 0000 Signed Impressions: Service Date/Time: Sunday, April 16, 2017 08:12 - CONCLUSION: 1. Multiple dilated small bowel loops greatest within the right mid abdomen with slight inflammatory changes. Partial obstruction cannot be excluded. 2. Resolution of previous identified abdominal rectus musculature hematomas. 3. Small amount of pelvic free fluid. 4. Bibasilar patchy infiltrates greater right lower lobe and more prominent on current study. 5. Diverticulosis without diverticulitis. Raul Cevallos MD Date/Time Source Procedure Growth Status 04/16/17 06:40 Blood Peripheral Aerobic Blood Culture Pending Received 04/16/17 06:40 Blood Peripheral Anaerobic Blood Culture Pending Received 04/16/17 06:35 Blood Peripheral Aerobic Blood Culture Pending Received 04/16/17 06:35 Blood Peripheral Anaerobic Blood Culture Pending Received 04/16/17 08:13 Nasal Aspirate Influenza Types A,B Antigen (SHAUN) - Final Complete 04/16/17 07:40 Urine Catheterized Urine Urine Culture Pending Received Differential Diagnosis Differential diagnosis includes sepsis, UTI, hyponatremia, dehydration, subdural hemorrhage, cholecystitis, appendicitis, pyelonephritis, electrolyte abnormality, delirium, medication side effect. Narrative Course The patient is a 81-year-old female was initially limited by the previous physician. Please refer to the initial history, physical, diagnostic evaluation , and treatment modality plan. The patient was signed out at [address] the brain and abdomen/pelvis pending as well as laboratory evaluation and UA pending. I had a discussion with the son and [id number] at bedside. The patient does live with her , has a bedside commode, but has refused attempts for home health care nursing and assisted living facility placement. The patient has not urinated since 5 AM yesterday. She does have a history of small bowel obstruction complains of abdominal discomfort. The patient is also had 2-3 loose stools a day which consists of a small amount of liquid-like stool. The patient's primary physician is Dr. Jovel and her manager media is Dr. Alves. The patient was afebrile and noted to have a white count of 25.2 and lactic acid 4.7, most consistent with dehydration with decreased urinary output. Therefore, the patient was administered a second liter of IV fluids and a Esquivel catheter was placed to measure accurate urine output. UA was sent to lab. The patient's INR was elevated at 7.1, no evidence of acute bleeding, therefore, no FFP or K Centra was administered. CT of the abdomen and pelvis reveals bilateral lower lobe infiltrates and questionable partial small bowel obstruction. The patient was administered 2 L , however, 3 L was not administered as patient does have a history of CHF and is currently on digoxin. The patient was administered IV antibiotics for ICU for pneumonia. Influenza screen was negative. Patient did have an episode of vomiting, was administered Zofran and morphine for abdominal pain with vomiting. If vomiting persists patient may need an NG tube. As the patient has multiple comorbidities with sepsis, lactic acidosis, elevated INR, and elevated digoxin level, the patient will be admitted to the [facility]. Therefore, the on-call coal briquette machine operator was paged for admission at 8:50 a.m. Critical Care Narrative Aggregate critical care time was 35 minutes. Time to perform other separately billable procedures was not included in the critical care time. My time did not include minutes spent treating any other patients simultaneously or on activities that did not directly contribute to the patient's treatment. The services I provided to this patient were to treat and/or prevent clinically significant deterioration that could result in: Sepsis, acute renal failure, arrhythmia, hemorrhage, . I provided critical care services requiring my management, as noted below: Chart data review, documentation time, medication orders and management, vital sign assessments/reviewing monitor data, ordering and reviewing lab tests, ordering and interpreting/reviewing x-rays and diagnostic studies, care of the patient and discussion of the patient with the admitting physicians. Procedures Procedure Narrative A bedside ultrasound was performed to evaluate for enlarged bladder. The patient did have fluid within the bladder, however, was not significantly distended. However, she did appear to have dilated loops of bowel on ultrasound. The ultrasound was performed with a curvilinear probe. The patient tolerated the procedure without difficulty and there was no obvious complications. Sepsis Criteria SIRS Criteria (2 or more): WBC > 35869, < 4000 or > 10% bands Septic Shock Criteria: Lactic acid >=4 Criteria Outcome: Meets septic shock criteria Physician Communication Physician Communication I discussed the patient with Dr. Vargas who agrees with admission. Diagnosis Primary Impression: Sepsis Qualified Codes: A41.9 - Sepsis, unspecified organism Additional Impressions: Bilateral pneumonia Qualified Codes: J18.9 - Pneumonia, unspecified organism Lactic acidosis Acute renal failure Qualified Codes: N17.9 - Acute kidney failure, unspecified Coumadin toxicity Qualified Codes: T45.514A - Poisoning by anticoagulants, undetermined, initial encounter Digoxin toxicity Qualified Codes: T46.0X1A - Poisoning by cardiac-stimulant glycosides and drugs of similar action, accidental (unintentional), initial encounter Admitting Information Admitting Physician Requests: Admit Condition: Stable Christian Garcia MD Apr 16, 2017 07:04
[2017-04-16 07:09] LABS: PROTHROMBIN TIME - PATIENT 70.9 SEC (9.8-11.6)
[2017-04-16 07:14] LABS: INTERNATIONAL NORMALIZED RATIO 7.1 RATIO
[2017-04-16 07:21] LABS: LACTIC ACID SEPSIS PROTOCOL 4.7 mmol/L (0.4-2.0)
[2017-04-16] MEDS ORDERED: SODIUM CHLOR 0.9% 1000 ML INJ 1,000 ML IV ONE (07:30)
[2017-04-16 07:39] LABS: ALKALINE PHOSPHATASE 80 U/L (45-117); ALT (GPT) 20 U/L (10-53); AST (GOT) 26 U/L (15-37); BICARBONATE 17.9 MEQ/L (21.0-32.0); BLOOD UREA NITROGEN 19 MG/DL (7-18); CHLORIDE 92 MEQ/L (98-107); CREATININE 1.79 MG/DL (0.50-1.00); GLOMERULAR FILTRATION RATE 27 ML/MIN (>89); GLUCOSE,RANDOM 165 MG/DL (74-106); SODIUM (NA) 126 MEQ/L (136-145); TOTAL BILIRUBIN ADULT 0.5 MG/DL (0.2-1.0); TOTAL PROTEIN 7.1 GM/DL (6.4-8.2); TROPONIN I LESS THAN 0.02 NG/ML (0.02-0.05)
[2017-04-16 08:21] LABS: BANDS 11 % (0-6); LYMPHOCYTES 1 % (9-44); MONOCYTES 5 % (0-8); NEUTROPHIL # MANUAL DIFF 23.4 TH/MM3 (1.8-7.7); POLYS (SEG NEUTROPHILS) 82 % (16-70)
[2017-04-16] MEDS ORDERED: AZTREONAM INJ 2,000 MG in SODIUM CHLORIDE 0.9% INJ 100 ML IV STA (08:26)
[2017-04-16] MEDS ORDERED: AZITHROMYCIN INJ 500 MG in SODIUM CHLOR 0.9% 250 ML INJ 250 ML IV STA (08:26)
--- NOTE | 2017-04-16 08:32 | RADRPT ---
EXAM DATE/TIME: 04/16/2017 08:09 [facility] COMPARISON: No previous studies available for comparison. INDICATIONS : Weakness, Vomiting, Diarrhea RADIATION DOSE: 56.35 CTDIvol (mGy) MEDICAL HISTORY : Hypertension. Gastroesophageal reflux disease. Chronic obstructive pulmonary disease.Coronary artery disease, hiatal hernia SURGICAL HISTORY : Hysterectomy. ENCOUNTER: Initial ACUITY: 1 day PAIN SCALE: Non-responsive LOCATION: cranial TECHNIQUE: Multiple contiguous axial images were obtained of the head. Using automated exposure control and adj ustment of the mA and/or kV according to patient size, radiation dose was kept as low as reasonably a chievable to obtain optimal diagnostic quality images. DICOM format image data is available electro nically for review and comparison. FINDINGS: CEREBRUM: Areas of low attenuation in the periventricular white matter. Mild tubal atrophy. The ventricles are normal for age. No evidence of midline shift, mass lesion, hemorrhage or acute infarction. No extra -axial fluid collections are seen. POSTERIOR FOSSA: The cerebellum and brainstem are intact. The 4th ventricle is midline. The cerebellopontine angle i s unremarkable. EXTRACRANIAL: The visualized portion of the orbits is intact. SKULL: The calvaria is intact. No evidence of skull fracture. CONCLUSION: Cerebral atrophy and chronic ischemic small vessel vasculopathy. Raul Cevallos MD on April 16, 2017 at 8:29 Board Certified Radiologist. This report was verified electronically.
[2017-04-16 08:44] LABS: BACTERIA, URINE RARE /hpf; BILIRUBIN, URINE NEG (NEG); BLOOD, URINE NEG (NEG); GLUCOSE,URINE NEG (NEG); HYALINE CAST, URINE 39 /lpf (RARE); KETONE, URINE 10 mg/dL (NEG); MUCUS URINE MANY /lpf (OCC); NITRITE,URINE NEG (NEG); SQUAMOUS EPITHELIAL CELL URINE <1 /hpf (0-5); URINE COLOR YELLOW (YELLW/STRAW); URINE LEUKOCYTE ESTERASE NEG (NEG)
[2017-04-16] MEDS ORDERED: MORPHINE SULFATE 2 MG/ML INJ IV PUSH ONE (08:45)
[2017-04-16] MEDS ORDERED: ONDANSETRON HCL 4 MG/2 ML VIAL IV PUSH ONE (08:45)
--- NOTE | 2017-04-16 08:49 | RADRPT ---
EXAM DATE/TIME: 04/16/2017 08:12 [facility] COMPARISON: CT ABDOMEN & PELVIS W CONTRAST, April 12, 2016, 12:34. INDICATIONS : Weakness, Vomiting, Diarrhea ORAL CONTRAST: No oral contrast ingested. RADIATION DOSE: 6.64 CTDIvol (mGy) MEDICAL HISTORY : Hypertension. Chronic obstructive pulmonary disease. Gastroesophageal reflux disease.Cornonary artery disease, hiatal hernia SURGICAL HISTORY : Hysterectomy. ENCOUNTER: Initial ACUITY: 1 day PAIN SCALE: Non-responsive LOCATION: Abdomen TECHNIQUE: Volumetric scanning of the abdomen and pelvis was performed. Using automated exposure control and ad justment of the mA and/or kV according to patient size, radiation dose was kept as low as reasonably achievable to obtain optimal diagnostic quality images. DICOM format image data is available electro nically for review and comparison. FINDINGS: LOWER LUNGS: Bibasilar patchy infiltrates greater right lower lobe. LIVER: Homogeneous density without lesion. There is no dilation of the biliary tree. No calcified gallston es. SPLEEN: Normal size without lesion. PANCREAS: Within normal limits. KIDNEYS: Normal in size and shape. There is no mass, stone, or hydronephrosis. ADRENAL GLANDS: Within normal limits. VASCULAR: There is no aortic aneurysm. Extensive atherosclerotic changes and tortuosity. BOWEL/MESENTERY: Moderate size hiatal hernia. Multiple dilated small bowel loops greatest within the right midabdomen there are some slight inflammatory changes. Copious amount stool in the rectum. Scattered diverticulo sis without diverticulitis.. There is no free intraperitoneal air or fluid. ABDOMINAL WALL: Within normal limits. RETROPERITONEUM: There is no lymphadenopathy. BLADDER: No wall thickening or mass. REPRODUCTIVE: Within normal limits. INGUINAL: There is no lymphadenopathy or hernia. MUSCULOSKELETAL: Multiple compression deformities within the lower thoracic and lumbar vertebral spine including kypho plasty cement within T11 and T12. Extensive scoliosis and degenerative changes. CONCLUSION: 1. Multiple dilated small bowel loops greatest within the right mid abdomen with slight inflammatory changes. Partial obstruction cannot be excluded. 2. Resolution of previous identified abdominal rectus musculature hematomas. 3. Small amount of pelvic free fluid. 4. Bibasilar patchy infiltrates greater right lower lobe and more prominent on current study. 5. Diverticulosis without diverticulitis. Raul Cevallos MD on April 16, 2017 at 8:42 Board Certified Radiologist. This report was verified electronically.
[2017-04-16] MEDS ORDERED: CHLORHEXIDINE GLUCONATE 2 % 1 PACK (2 CLOTHS) TOP PRN (10:00)
[2017-04-16] MEDS ORDERED: GLUCAGON 1 MG/ML VIAL OTHER PRN (10:00)
[2017-04-16] MEDS ORDERED: SENNOSIDES 8.6 MG TAB PO PRN (10:00)
[2017-04-16] MEDS ORDERED: MISCELLANEOUS NURSING INFORMATION XX SCH (10:00)
[2017-04-16] MEDS ORDERED: BISACODYL 10 MG SUPP RECTAL PRN (10:00)
[2017-04-16] MEDS ORDERED: MAGNESIUM HYDROXIDE SUSP 30 ML CUP PO PRN (10:00)
[2017-04-16] MEDS ORDERED: Vancomycin Consult Pharmacy 1 EA OTHER SCH (10:00)
[2017-04-16] MEDS ORDERED: DEXTROSE 50% IN WATER 50 ML VIAL(D50) IV PUSH PRN (10:00)
[2017-04-16] MEDS ORDERED: ONDANSETRON HCL 4 MG/2 ML VIAL IV PUSH PRN (10:00)
[2017-04-16] MEDS ORDERED: PHYTONADIONE INJ 10 MG in SODIUM CHLORIDE 0.9% INJ 50 ML IV ONE (10:15)
--- NOTE | 2017-04-16 10:38 | HHI.HP ---
[facility] Service Critical Care Medicine Primary Care Physician Hipolito Cadena M.D. Admission Diagnosis sepsis, bilateral pneumonia, lactic acidosis, acute renal failure, d Diagnosis: Travel History International Travel<30 Days: No Contact w/Intl Traveler <30 Da: No Traveled to Known Affected Are: No Sepsis Criteria SIRS Criteria (2 or more): WBC > 67689, < 4000 or > 10% bands Septic Shock Criteria: Lactic acid >=4 History of Present Illness This is an 81-year-old female that presented to the ED , secondary to altered mental status. Per report from family at bedside, the patient has been feeling sick having generalized weakness for approximately 3 weeks. The patient reported having diarrhea 3-4 times per day. Per report from [facility], she was hypotensive on scene. The patient is lethargic and severely weak but does respond appropriately to questions. She complained of back pain and abdominal pain upon palpitation. She reports episodes of nausea and vomiting . Upon admission to the ED laboratory and imaging studies were performed. The patient was noted to have a significant leukocytosis suggestive bilateral lobe pneumonia on CT as well as dilated small bowel loops. Patient's INR was noted to be 7.1. Critical care medicine was consulted. History PFSH Past Medical History Arthritis: Yes Blood Disorders: No Heart Rhythm Problems: Yes (IRREGULAR) Cancer: No Cardiovascular Problems: Yes (Cardiac arrhythmia; CAD;PVD) High Cholesterol: Yes COPD: Yes Diabetes: No Diminished Hearing: No Endocrine: No Gastrointestinal Disorders: Yes GERD: Yes Genitourinary: No Headaches: Yes Hepatitis: No Hiatal Hernia: Yes Hypertension: Yes Immune Disorder: No Musculoskeletal: Yes Neurologic: No Psychiatric: No Reproductive: No Respiratory: Yes ?: Not Menopausal: Yes Past Surgical History Abdominal Surgery: Yes (appendectomy; surgical intervention for small bowel osbstruction) AICD: No Arteriovenous Shunt: No Body Medical Devices: LEFT BREAST LUMPECTOMY Eye Surgery: Yes (bilateral cataract removal) Gynecologic Surgery: Yes (partial hysterectomy) Hysterectomy: Yes (PARTIAL) Insulin Pump: No Joint Replacement: No Pacemaker: No Thoracic Surgery: Yes (T11 KYPHOPLASTY) Other Surgery: Yes (LEFT CAROTID ENDARECHTOMY) Social History Alcohol Use: No Tobacco Use: Yes (2 PPD) Substance Use: No Allergies-Medications Allergies-Medications (Allergen,Severity, Reaction): Coded Allergies: adhesive (Unverified Allergy, Severe, 11/19/16) codeine (Unverified Allergy, Severe, N/V, 11/19/16) latex (Unverified Allergy, Severe, 11/19/16) propoxyphene (Unverified Allergy, Severe, NASUSEA VOMITING, 11/19/16) hydrocodone (Unverified Allergy, Intermediate, NAUSEA, 11/19/16) ceftriaxone (Unverified Allergy, Mild, Rash, 11/19/16) The patient had reddness on her chest after the Rocephin Uncoded Allergies: HYDROCODONE (Adverse Reaction, Intermediate, 11/20/10) Reported Meds & Prescriptions Physical Exam Vital Signs Vital Signs Date Time Temp Pulse Resp B/P (MAP) Pulse Ox O2 Delivery O2 Flow Rate FiO2 04/16/17 08:53 72 28 125/60 (81) 92 Room Air 04/16/17 06:25 95 Nasal Cannula 2.00 04/16/17 06:21 97.4 75 22 118/58 (78) 93 Physical Exam V/S 105/57 Pulse 71 O2 saturation 97% GENERAL: This is a well-developed well-nourished critically ill elderly female, extremely lethargic in moderate distress complaints of abdominal and back pain SKIN: Warm and dry. HEAD: Atraumatic. Normocephalic. EYES: Pupils equal and round. No scleral icterus. No injection or drainage. ENT: No nasal bleeding or discharge. Mucous membranes pink and dry. Currently 2 L nasal cannula NECK: Trachea midline. No JVD. CARDIOVASCULAR: Normal rate, regular rhythm. RESPIRATORY: No accessory muscle use. Clear to auscultation. Breath sounds equal bilaterally. GASTROINTESTINAL: Abdomen soft, non-tender, nondistended. No guarding. MUSCULOSKELETAL: Extremities without clubbing, cyanosis, or edema. No obvious deformities. NEUROLOGICAL: Lethargic. RASS 0. No gross focal/sensory deficits. Follows commands in all 4 extremities. Laboratory Laboratory Tests Test 04/16/17 06:35 04/16/17 07:40 White Blood Count 25.2 Red Blood Count 4.80 Hemoglobin 14.5 Hematocrit 43.3 Mean Corpuscular Volume 90.3 Mean Corpuscular Hemoglobin 30.2 Mean Corpuscular Hemoglobin Concent 33.5 Red Cell Distribution Width 14.5 Platelet Count 326 Mean Platelet Volume 6.8 Neutrophils (%) (Auto) 89.6 Lymphocytes (%) (Auto) 2.2 Monocytes (%) (Auto) 8.1 Eosinophils (%) (Auto) 0.0 Basophils (%) (Auto) 0.1 Neutrophils # (Auto) 22.6 Lymphocytes # (Auto) 0.6 Monocytes # (Auto) 2.0 Eosinophils # (Auto) 0.0 Basophils # (Auto) 0.0 CBC Comment AUTO DIFF Differential Total Cells Counted 100 Neutrophils % (Manual) 82 Band Neutrophils % 11 Lymphocytes % 1 Monocytes % 5 Eosinophils % 1 Neutrophils # (Manual) 23.4 Differential Comment FINAL DIFF MANUAL Platelet Estimate NORMAL Platelet Morphology Comment NORMAL Red Cell Morphology Comment NORMAL Prothrombin Time 70.9 Prothromb Time International Ratio 7.1 Activated Partial Thromboplast Time 53.0 Blood Urea Nitrogen 19 Creatinine 1.79 Random Glucose 165 Total Protein 7.1 Albumin 3.0 Calcium Level 8.0 Alkaline Phosphatase 80 Aspartate Amino Transf (AST/SGOT) 26 Alanine Aminotransferase (ALT/SGPT) 20 Total Bilirubin 0.5 Sodium Level 126 Potassium Level 4.9 Chloride Level 92 Carbon Dioxide Level 17.9 Anion Gap 16 Estimat Glomerular Filtration Rate 27 Lactic Acid Level 4.7 Total Creatine Kinase 97 Troponin I LESS THAN 0.02 Digoxin Level 2.3 Urine Color YELLOW Urine Turbidity HAZY Urine pH 6.0 Urine Specific [place] 1.018 Urine Protein 30 Urine Glucose (UA) NEG Urine Ketones 10 Urine Occult Blood NEG Urine Nitrite NEG Urine Bilirubin NEG Urine Urobilinogen 2.0 Urine Leukocyte Esterase NEG Urine RBC 1 Urine WBC 2 Urine Squamous Epithelial Cells <1 Urine Bacteria RARE Urine Hyaline Casts 39 Urine Mucus MANY Microscopic Urinalysis Comment CATH-CULTURE IND Date/Time Source Procedure Growth Status 04/16/17 06:40 Blood Peripheral Aerobic Blood Culture Pending Received 04/16/17 06:40 Blood Peripheral Anaerobic Blood Culture Pending Received 04/16/17 08:13 Nasal Aspirate Influenza Types A,B Antigen (SHAUN) - Final Complete 04/16/17 07:40 Urine Catheterized Urine Urine Culture Pending Received Result Diagram: 04/16/1763404/16/17634 Imaging Last Impressions Head CT 04/16/17620 Signed Impressions: Service Date/Time: Sunday, April 16, 2017 08:09 - CONCLUSION: Cerebral atrophy and chronic ischemic small vessel vasculopathy. Raul Cevallos MD Chest X-Ray 04/16/17620 Signed Impressions: Service Date/Time: Sunday, April 16, 2017 06:32 - CONCLUSION: 1. Cardiomegaly. No acute pulmonary disease. Sly West MD Abdomen/Pelvis CT 04/16/17 0000 Signed Impressions: Service Date/Time: Sunday, April 16, 2017 08:12 - CONCLUSION: 1. Multiple dilated small bowel loops greatest within the right mid abdomen with slight inflammatory changes. Partial obstruction cannot be excluded. 2. Resolution of previous identified abdominal rectus musculature hematomas. 3. Small amount of pelvic free fluid. 4. Bibasilar patchy infiltrates greater right lower lobe and more prominent on current study. 5. Diverticulosis without diverticulitis. Raul Cevallos MD Septic Shock Reassessment Septic shock perfusion: reassessment completed Caprini VTE Risk Assessment Caprini VTE Risk Assessment: No/Low Risk (score <= 1) VTE Pharm Contraindication: High risk for bleeding Caprini Risk Assessment Model Point Value = 1 Point Value = 2 Point Value = 3 Point Value = 5 Age 41-60 Minor surgery BMI > 25 kg/m2 Swollen legs Varicose veins or History of unexplained or recurrent spontaneous Oral contraceptives or hormone replacement Sepsis (< 1 month) Serious lung disease, including pneumonia (< 1 month) Abnormal pulmonary function Acute myocardial infarction Congestive heart failure (< 1 month) History of inflammatory bowel disease Medical patient at bed rest Age 61-74 Arthroscopic surgery Major open surgery (> 45 min) Laparoscopic surgery (> 45 min) Malignancy Confined to bed (> 72 hours) Immobilizing plaster cast Central venous access Age >= 75 History of VTE Family history of VTE Factor V Leiden Prothrombin [id number] Lupus anticoagulant Anticardiolipin antibodies Elevated serum homocysteine Heparin-induced thrombocytopenia Other congenital or acquired thrombophilia Stroke (< 1 month) Elective arthroplasty Hip, pelvis, or leg fracture Acute spinal cord injury (< 1 month) Prophylaxis Regimen Total Risk Factor Score Risk Level Prophylaxis Regimen 0-1 Low Early ambulation 2 Moderate Order ONE of the following: *Sequential Compression Device (SCD) *Heparin 5000 units SQ BID 3-4 Higher Order ONE of the following medications: *Heparin 5000 units SQ TID *Enoxaparin/Lovenox 40 mg SQ daily (WT < 150 kg, CrCl > 30 mL/min) *Enoxaparin/Lovenox 30 mg SQ daily (WT < 150 kg, CrCl > 10-29 mL/min) *Enoxaparin/Lovenox 30 mg SQ BID (WT < 150 kg, CrCl > 30 mL/min) AND/OR *Sequential Compression Device (SCD) 5 or more Highest Order ONE of the following medications: *Heparin 5000 units SQ TID (Preferred with Epidurals) *Enoxaparin/Lovenox 40 mg SQ daily (WT < 150 kg, CrCl > 30 mL/min) *Enoxaparin/Lovenox 30 mg SQ daily (WT < 150 kg, CrCl > 10-29 mL/min) *Enoxaparin/Lovenox 30 mg SQ BID (WT < 150 kg, CrCl > 30 mL/min) AND *Sequential Compression Device (SCD) Assessment and Plan Assessment and Plan This is an 81-year-old female with multiple comorbidities, presenting with altered mental status ,abdominal pain, pneumonia, probable sepsis with a supratherapeutic INR. The patient is critically ill . Admit to ICU. Plan by systems: Neurologic: Toxic encephalopathy-metabolic 2/2 sepsis Chronic back pain Neurochecks per ICU protocol Avoid long-acting sedatives Ofirmev 1 g every 6 hours 48 hours Check ammonia level Hold Soma, temazepam patient's home medications Incision resumption of tramadol 50 mg every 6 hours Respiratory: COPD Probable community-acquired pneumonia Maintain O2 sat greater than 92% Provide O2 1-4 L/m nasal cannula Duo nebs every 4 hours when necessary for wheezing Incentive spirometry while awake 04/16 Chest [id number] 04/16 CT- B/L lower lobe pneumonia Chest x-rays and ABGs when clinically indicated Cardiovascular: Chronic Atrial fibrillation-rate controlled Digoxin toxicity Coronary artery disease Cardiomegaly Hold Coumadin secondary to supratherapeutic INR patient normally on 5 mg/day Obtain EKG Initial digoxin level 2.3 continue to trend Obtain echo-last echo recorded during a hospitalization was 01/2013 Renal: AMBER Probable UTI Insert Esquivel -- Strict I/Os FEN/GI: Abdominal pain Possible small bowel obstruction versus ileus Diverticulosis GERD Moderate hiatal hernia Electrolyte derangement Maintain NPO status for now Zofran for nausea Famotidine for GI prophylaxis GI consulted follow-up recommendations Follow-up C. difficile PCR Hyponatremia , chronic??? Continue monitor Heme/ID: Severe sepsis Bandemia Leukocytosis Mild protein calorie malnutrition Probable CAP Possible UTI Supratherapeutic INR Vitamin K 10 mg IVPB now- INR 7.1 Trend INR maintain level 2.0-3.0 Monitor CBC 04/16 Patient received Atrezonam 2 g and azithromycin IV 100 mg in the ED Obtain blood and urine [id number] results. Obtain pneumococcal urine antigen Begin empiric antibiotics Flagyl 500 mg every 8 hours, Atrezonam 2 g every 8 hours and Vancomycin per pharmacy dosing Initial lactate 4.7, bands 11% Obtain C. difficile PCR Follow-up lactic acid sepsis protocol Endocrine: Glucose monitoring per ICU protocol. Low dose regimen -- SSI Prophylaxis: GI Prophylaxis Famotidine BID DVT Prophylaxis -- SCDs No chemical DVT prophylaxis in the setting of supratherapeutic INR Lines: Peripheral IVs 2 providing adequate access. Central line if indicated Dispo: my billing statement This patient remains critically ill with one or more organ systems which are or may become a threat to life. I have spent in excess of 56 minutes discontinuously in the care and management of this patient. This time is exclusive of procedures, and includes, but is not limited to, evaluation of the patient, review of the medical record, discussions with family, consultants, nursing staff, or respiratory therapy, and documentation in the medical record. Code Status Full Discussed Condition With Patient, son and [id number], Dr. Garcia, and ED RN at bedside. All questions answered Maria E Vargas MD Apr 16, 2017 10:38
[2017-04-16] MEDS: SODIUM CHLOR 0.9% 1000 ML INJ 1,000 ML IV SCH (11:13)
[2017-04-16] MEDS: metroNIDAZOLE 500 MG INJ 100 ML IV SCH ×2 (11:33→21:41)
[2017-04-16] MEDS: INSULIN ASPART SUPPLEMENTAL SCALE SQ SCH ×3 (12:00→21:00)
[2017-04-16] MEDS ORDERED: VANCOMYCIN 1,000 MG/NS 250 ML IV ONE ×2 (13:00)
--- NOTE | 2017-04-16 14:22 | PD.CONS ---
HPI History of Present Illness This is a 81 year old female with hx high grade partial small bowel obstruction 2008, brought to ER for change in mental status. Reportedly she was having weakness, loose stool. She tells me she had diarrhea, n/v for 3-4 days after eating, and abd pain for the last month. She was found to have supratherapeutic INR of 7.1 and digoxin toxicity, PNA. GI has been consulted for ileus vs SBO. CT showed abd rectus hematomas, multiple dilated loops small bowel and inability to exclude an obstruction. Pt is limited historian, most of hx obtained from chart. (Cammy Moreau) PFSH Past Medical History arrhythmia CAD COPD GERD HTN Past Surgical History appendectomy lumpectomy cataract surgery kyphoplasty laparoscopy and AMIE for small bowel obstruction (Cammy Moreau) Coded Allergies: adhesive (Unverified Allergy, Severe, 11/19/16) codeine (Unverified Allergy, Severe, N/V, 11/19/16) latex (Unverified Allergy, Severe, 11/19/16) propoxyphene (Unverified Allergy, Severe, NASUSEA VOMITING, 11/19/16) hydrocodone (Unverified Allergy, Intermediate, NAUSEA, 11/19/16) ceftriaxone (Unverified Allergy, Mild, Rash, 11/19/16) The patient had reddness on her chest after the Rocephin aspirin (Verified Allergy, Unknown, 04/16/17) Uncoded Allergies: HYDROCODONE (Adverse Reaction, Intermediate, 11/20/10) Family History unobtainable Social History unk (Cammy Moreau) Review of Systems Gastrointestinal: COMPLAINS OF: Abdominal pain, Diarrhea, Nausea, Vomiting ( otherwise noncontributory) (Cammy Moreau) GI Exam Vitals I&O Vital Signs Date Time Temp Pulse Resp B/P (MAP) Pulse Ox O2 Delivery O2 Flow Rate FiO2 04/16/17 12:26 04/16/17 12:00 82 26 139/65 (89) 95 Nasal Cannula 2.00 04/16/17 11:55 78 26 134/62 (86) 96 Nasal Cannula 04/16/17 08:53 72 28 125/60 (81) 92 Room Air 04/16/17 06:25 95 Nasal Cannula 2.00 1/10/18 06:21 97.4 75 22 118/58 (78) 93 I/O 04/15/17 04/15/17 04/15/17 04/16/17 04/16/17 04/16/17 07:00 15:00 23:00 07:00 15:00 23:00 Intake Total 2350 ml Output Total 50 ml Balance 2300 ml Intake IV Total 2350 ml Output Emesis 50 ml Imaging Last Impressions Head CT 04/16/17620 Signed Impressions: Service Date/Time: Sunday, April 16, 2017 08:09 - CONCLUSION: Cerebral atrophy and chronic ischemic small vessel vasculopathy. Raul Cevallos MD Chest X-Ray 04/16/17620 Signed Impressions: Service Date/Time: Sunday, April 16, 2017 06:32 - CONCLUSION: 1. Cardiomegaly. No acute pulmonary disease. Sly West MD Abdomen/Pelvis CT 04/16/17 0000 Signed Impressions: Service Date/Time: Sunday, April 16, 2017 08:12 - CONCLUSION: 1. Multiple dilated small bowel loops greatest within the right mid abdomen with slight inflammatory changes. Partial obstruction cannot be excluded. 2. Resolution of previous identified abdominal rectus musculature hematomas. 3. Small amount of pelvic free fluid. 4. Bibasilar patchy infiltrates greater right lower lobe and more prominent on current study. 5. Diverticulosis without diverticulitis. Raul Cevallos MD Laboratory Test 04/16/17 06:35 04/16/17 07:40 04/16/17 09:55 White Blood Count 25.2 TH/MM3 Red Blood Count 4.80 MIL/MM3 Hemoglobin 14.5 GM/DL Hematocrit 43.3 % Mean Corpuscular Volume 90.3 FL Mean Corpuscular Hemoglobin 30.2 PG Mean Corpuscular Hemoglobin Concent 33.5 % Red Cell Distribution Width 14.5 % Platelet Count 326 TH/MM3 Mean Platelet Volume 6.8 FL Neutrophils (%) (Auto) 89.6 % Lymphocytes (%) (Auto) 2.2 % Monocytes (%) (Auto) 8.1 % Eosinophils (%) (Auto) 0.0 % Basophils (%) (Auto) 0.1 % Neutrophils # (Auto) 22.6 TH/MM3 Lymphocytes # (Auto) 0.6 TH/MM3 Monocytes # (Auto) 2.0 TH/MM3 Eosinophils # (Auto) 0.0 TH/MM3 Basophils # (Auto) 0.0 TH/MM3 CBC Comment AUTO DIFF Differential Total Cells Counted 100 Neutrophils % (Manual) 82 % Band Neutrophils % 11 % Lymphocytes % 1 % Monocytes % 5 % Eosinophils % 1 % Neutrophils # (Manual) 23.4 TH/MM3 Differential Comment FINAL DIFF MANUAL Platelet Estimate NORMAL Platelet Morphology Comment NORMAL Red Cell Morphology Comment NORMAL Prothrombin Time 70.9 SEC Prothromb Time International Ratio 7.1 RATIO Activated Partial Thromboplast Time 53.0 SEC Blood Urea Nitrogen 19 MG/DL Creatinine 1.79 MG/DL Random Glucose 165 MG/DL Total Protein 7.1 GM/DL Albumin 3.0 GM/DL Calcium Level 8.0 MG/DL Alkaline Phosphatase 80 U/L Aspartate Amino Transf (AST/SGOT) 26 U/L Alanine Aminotransferase (ALT/SGPT) 20 U/L Total Bilirubin 0.5 MG/DL Sodium Level 126 MEQ/L Potassium Level 4.9 MEQ/L Chloride Level 92 MEQ/L Carbon Dioxide Level 17.9 MEQ/L Anion Gap 16 MEQ/L Estimat Glomerular Filtration Rate 27 ML/MIN Lactic Acid Level 4.7 mmol/L 4.1 mmol/L Total Creatine Kinase 97 U/L Troponin I LESS THAN 0.02 NG/ML B-Type Natriuretic Peptide 49 PG/ML Digoxin Level 2.3 NG/ML Urine Color YELLOW Urine Turbidity HAZY Urine pH 6.0 Urine Specific [place] 1.018 Urine Protein 30 mg/dL Urine Glucose (UA) NEG mg/dL Urine Ketones 10 mg/dL Urine Occult Blood NEG Urine Nitrite NEG Urine Bilirubin NEG Urine Urobilinogen 2.0 MG/DL Urine Leukocyte Esterase NEG Urine RBC 1 /hpf Urine WBC 2 /hpf Urine Squamous Epithelial Cells <1 /hpf Urine Bacteria RARE /hpf Urine Hyaline Casts 39 /lpf Urine Mucus MANY /lpf Microscopic Urinalysis Comment CATH-CULTURE IND Date/Time Source Procedure Growth Status 04/16/17 06:40 Blood Peripheral Aerobic Blood Culture Pending Received 04/16/17 06:40 Blood Peripheral Anaerobic Blood Culture Pending Received 04/16/17 08:13 Nasal Aspirate Influenza Types A,B Antigen (SHAUN) - Final Complete 04/16/17 07:40 Urine Catheterized Urine Urine Culture Pending Received Physical Examination HEENT: PERRL; normocephalic; atraumatic; no jaundice. CHEST: CTA CARDIAC: RRR ABDOMEN: Semifirm, distended, nontender; no hepatosplenomegaly; bowel sounds are present in all four quadrants. EXTREMITIES: No clubbing, cyanosis, or edema. SKIN: Normal; no rash; no jaundice. REGULATORY LAW SPECIALIST: lethargic, answers appropriately (Cammy Moreau) Assessment and Plan Plan ASSESSMENT - abd pain, n/v, diarrhea - ileus vs small bowel obstruction. CT showed abd rectus hematoma and mult dilated loops small bowel, cant exclude obstruction. hx high grade small bowel obstruction s/p AMIE and laparoscopy in 2008. limited hx. - supratherapeutic INR, dig toxicity, CAP, AF, AMBER per [facility] - correct INR - NGT if vomiting, and after INR correction - consider SBFT - further recs after Dr Carlin sees pt pt seen and examined by Dr Carlin and myself and this note is written on her behalf (Cammy Moreau) Physician Comments seen, examined agree with above insert ngt stool for c diff, c/s repeat abdominal x ray in am fu ammonia lipase (Brianna Carlin MD) Cammy Moreau Apr 16, 2017 14:22 Brianna Carlin MD Apr 16, 2017 15:02
[2017-04-16] MEDS: ACETAMINOPHEN 1000 MG/100 ML 100 ML IV SCH ×3 (14:23→23:43)
[2017-04-16 15:32] LABS: DIRECT BILIRUBIN ADULT 0.2 MG/DL (0.0-0.2)
[2017-04-16 15:34] LABS: INDIRECT BILIRUBIN 0.4 MG/DL (0.0-0.8); TOTAL BILIRUBIN ADULT 0.6 MG/DL (0.2-1.0); TOTAL PROTEIN 6.7 GM/DL (6.4-8.2)
[2017-04-16] MEDS: AZTREONAM INJ 1,000 MG in SODIUM CHLORIDE 0.9% INJ 100 ML IV SCH (17:49)
[2017-04-16 20:07] LABS: LACTIC ACID SEPSIS PROTOCOL 4.3 mmol/L (0.4-2.0)
--- NOTE | 2017-04-16 21:09 | EKG ---
Date Performed: 04/16/2017 Time Performed: 06:37:58 PTAGE: 81 years EKG: Sinus rhythm MARKED LEFT AXIS DEVIATION LOW QRS VOLTAGE IN EXTREMITY LEADS ST DEVIATION AND MODERATE T-WAVE ABNOR MALITY ABNORMAL ECG PREVIOUS TRACING : 04/12/2016 03.20 Compared to prior tracing no significant change DOCTOR: Kiana Salcedo Interpretating Date/Time 04/16/2017 21:08:40
[2017-04-16] MEDS: DOCUSATE SODIUM 50 MG/SENNA 8.6 MG TAB PO SCH (21:41)
[2017-04-16] MEDS: FAMOTIDINE 20 MG/2 ML VIAL IV PUSH SCH (21:41)
[2017-04-16] MEDS: SODIUM CHLORIDE 0.9% FLUSH 10 ML FLUSH IV FLUSH SCH (21:41)
[2017-04-17] VITALS (40 sets, daily range): BP systolic 110–198; BP diastolic 55–130; PULSE 71–100; RESP 26–37; TEMP 97.9–98.6; O2SAT 93–99
[2017-04-17 01:07] LABS: LACTIC ACID SEPSIS PROTOCOL 2.3 mmol/L (0.4-2.0)
[2017-04-17] MEDS: AZTREONAM INJ 1,000 MG in SODIUM CHLORIDE 0.9% INJ 100 ML IV SCH ×2 (01:24→10:00)
[2017-04-17 03:49] LABS: INTERNATIONAL NORMALIZED RATIO 1.7 RATIO; PROTHROMBIN TIME - PATIENT 17.4 SEC (9.8-11.6)
[2017-04-17 03:59] LABS: AUTOMATED NEUTROPHIL # 34.4 TH/MM3 (1.8-7.7); BASOPHIL % 0.1 % (0.0-2.0); HEMATOCRIT 36.3 % (35.0-46.0); HEMOGLOBIN 12.4 GM/DL (11.6-15.3); LYMPH % 0.9 % (9.0-44.0); LYMPHOCYTE # 0.3 TH/MM3 (1.0-4.8); MEAN CELL VOLUME 89.9 FL (80.0-100.0); MEAN CORPUSCULAR HEMOGLOBIN 30.6 PG (27.0-34.0); MEAN PLATELET VOLUME 7.1 FL (7.0-11.0); MONO % 2.9 % (0.0-8.0); NEUT % 96.1 % (16.0-70.0); PLATELET COUNT 350 TH/MM3 (150-450); RED BLOOD COUNT 4.04 MIL/MM3 (4.00-5.30); RED CELL DISTRIBUTION WIDTH 14.6 % (11.6-17.2); WHITE BLOOD COUNT 35.8 TH/MM3 (4.0-11.0)
[2017-04-17] MEDS: CHLORHEXIDINE GLUCONATE 2 % 1 PACK (2 CLOTHS) TOP SCH (04:00)
[2017-04-17 04:04] LABS: ALBUMIN 2.6 GM/DL (3.4-5.0); BICARBONATE 18.4 MEQ/L (21.0-32.0); CALCIUM 7.3 MG/DL (8.5-10.1); CALCIUM-PROTEIN CORRECTED 7.8 MG/DL (8.5-10.1); CREATININE 1.09 MG/DL (0.50-1.00); MAGNESIUM 1.7 MG/DL (1.5-2.5); PHOSPHORUS 2.3 MG/DL (2.5-4.9); TOTAL BILIRUBIN ADULT 0.6 MG/DL (0.2-1.0); TOTAL PROTEIN 6.2 GM/DL (6.4-8.2)
[2017-04-17] MEDS: metroNIDAZOLE 500 MG INJ 100 ML IV SCH ×3 (04:18→20:44)
[2017-04-17 04:39] LABS: BANDS 16 % (0-6); MONOCYTES 2 % (0-8); NEUTROPHIL # MANUAL DIFF 35.1 TH/MM3 (1.8-7.7); POLYS (SEG NEUTROPHILS) 82 % (16-70)
--- NOTE | 2017-04-17 05:28 | RADRPT ---
EXAM DATE/TIME: 04/17/2017 04:31 [facility] COMPARISON: CHEST SINGLE AP, April 16, 2017, 6:32. INDICATIONS : Shortness of breath. MEDICAL HISTORY : Hiatal hernia. Gastroesophageal reflux disease. Hypertension. Chronic obstructive pulmonary dise ase. SURGICAL HISTORY : Hysterectomy. ENCOUNTER: Subsequent ACUITY: 1 week PAIN SCORE: 0/10 LOCATION: Bilateral FINDINGS: The cardiac silhouette is enlarged in transverse diameter. There is prominence of the central pulmona ry vasculature with indistinct vascular margins compatible with vascular congestion but no evidence o f overt failure. CONCLUSION: 1. Cardiomegaly and findings of vascular congestion without overt failure. This is new when compared with the prior exam. Sly West MD on April 17, 2017 at 5:26 Board Certified Radiologist. This report was verified electronically.
[2017-04-17] MEDS: ACETAMINOPHEN 1000 MG/100 ML 100 ML IV SCH ×3 (05:58→19:27)
[2017-04-17] MEDS: INSULIN ASPART SUPPLEMENTAL SCALE SQ SCH ×4 (08:00→20:45)
[2017-04-17] MEDS: DOCUSATE SODIUM 50 MG/SENNA 8.6 MG TAB PO SCH ×2 (09:00→20:44)
[2017-04-17] MEDS: LACTULOSE SYRUP 20 GM/30 ML CUP PO SCH (09:00)
[2017-04-17] MEDS: FAMOTIDINE 20 MG/2 ML VIAL IV PUSH SCH ×2 (09:00→20:45)
--- NOTE | 2017-04-17 09:08 | RADRPT ---
EXAM DATE/TIME: 04/17/2017 08:17 [facility] COMPARISON: CT ABDOMEN & PELVIS W/O CONTRAST, April 16, 2017, 8:12. INDICATIONS : Evaluate for ileus MEDICAL HISTORY : Hiatal hernia. Gastroesophageal reflux disease. Hypertension. Chronic obstructive pulmonary disease SURGICAL HISTORY : Hysterectomy. ENCOUNTER: Initial ACUITY: 1 week PAIN SCORE: 6/10 LOCATION: Abdomen FINDINGS: Supine view of the abdomen was performed. Mildly prominent central bowel loops likely small bowel. No abnormal masses, calcifications, or organomegaly is seen. The osseous structures are unremarkable. CONCLUSION: Mildly prominent central bowel loops again seen could be obstruction versus ileus. Raul Cevallos MD on April 17, 2017 at 9:05 Board Certified Radiologist. This report was verified electronically.
[2017-04-17] MEDS: SODIUM CHLOR 0.9% 1000 ML INJ 1,000 ML IV SCH (09:41)
[2017-04-17] MEDS ORDERED: LABETALOL HCL 100 MG/20 ML VIAL ONE (11:09)
--- NOTE | 2017-04-17 11:11 | HHI.GIFU ---
Subjective Remarks Pt resting in bed. c/o abd pain. cannot tell me if she's passing gas. asking for food. pulled out NGT (Cammy Moreau) Objective Vitals I&O Vital Signs Date Time Temp Pulse Resp B/P (MAP) Pulse Ox O2 Delivery O2 Flow Rate FiO2 04/17/17 09:36 95 Nasal Cannula 2.00 04/17/17 06:00 90 04/17/17 04:00 93 04/17/17 04:00 97.9 93 28 167/80 (109) 95 04/17/17 02:00 93 04/17/17 01:09 95 Nasal Cannula 2.00 04/17/17 00:00 100 04/17/17 00:00 98.0 100 28 143/70 (94) 93 04/16/17 22:00 101 04/16/17 20:00 98.3 95 26 152/77 (102) 95 04/16/17 20:00 93 04/16/17 19:34 94 Nasal Cannula 2.00 04/16/17 18:00 93 04/16/17 17:22 95 Nasal Cannula 2.00 04/16/17 16:00 98.2 90 29 148/68 (94) 94 04/16/17 16:00 90 04/16/17 14:00 87 04/16/17 12:26 04/16/17 12:00 82 26 139/65 (89) 95 Nasal Cannula 2.00 04/16/17 12:00 98.0 80 140/67 (91) 94 04/16/17 12:00 80 04/16/17 11:55 78 26 134/62 (86) 96 Nasal Cannula I/O 04/16/17 04/16/17 04/16/17 04/17/17 04/17/17 04/17/17 07:00 15:00 23:00 07:00 15:00 23:00 Intake Total 2350 ml 300 ml 720 ml Output Total 50 ml 200 ml 500 ml Balance 2300 ml 100 ml 220 ml Intake Oral 0 ml IV Total 2350 ml 300 ml 720 ml Output Urine Total 200 ml 300 ml Gastric Drainage Total 200 ml Emesis 50 ml # Bowel Movements 0 Laboratory Laboratory Tests Test 04/16/17 14:53 04/16/17 17:00 04/16/17 19:33 04/17/17 00:30 Total Bilirubin 0.6 Direct Bilirubin 0.2 Indirect Bilirubin 0.4 Aspartate Amino Transf (AST/SGOT) 8 Alanine Aminotransferase (ALT/SGPT) 19 Alkaline Phosphatase 72 Ammonia 23 Total Creatine Kinase 40 Total Protein 6.7 Albumin 3.0 Nasal Screen MRSA (PCR) MRSA NOT DETECTED Lactic Acid Level 4.3 2.3 Test 04/17/17 03:22 White Blood Count 35.8 Red Blood Count 4.04 Hemoglobin 12.4 Hematocrit 36.3 Mean Corpuscular Volume 89.9 Mean Corpuscular Hemoglobin 30.6 Mean Corpuscular Hemoglobin Concent 34.0 Red Cell Distribution Width 14.6 Platelet Count 350 Mean Platelet Volume 7.1 Neutrophils (%) (Auto) 96.1 Lymphocytes (%) (Auto) 0.9 Monocytes (%) (Auto) 2.9 Eosinophils (%) (Auto) 0.0 Basophils (%) (Auto) 0.1 Neutrophils # (Auto) 34.4 Lymphocytes # (Auto) 0.3 Monocytes # (Auto) 1.0 Eosinophils # (Auto) 0.0 Basophils # (Auto) 0.0 CBC Comment AUTO DIFF Differential Total Cells Counted 100 Neutrophils % (Manual) 82 Band Neutrophils % 16 Monocytes % 2 Neutrophils # (Manual) 35.1 Differential Comment FINAL DIFF MANUAL Platelet Estimate NORMAL Platelet Morphology Comment NORMAL Red Cell Morphology Comment NORMAL Prothrombin Time 17.4 Prothromb Time International Ratio 1.7 Blood Urea Nitrogen 24 Creatinine 1.09 Random Glucose 138 Total Protein 6.2 Albumin 2.6 Calcium Level 7.3 Phosphorus Level 2.3 Magnesium Level 1.7 Alkaline Phosphatase 76 Aspartate Amino Transf (AST/SGOT) 11 Alanine Aminotransferase (ALT/SGPT) 14 Total Bilirubin 0.6 Sodium Level 133 Potassium Level 4.1 Chloride Level 102 Carbon Dioxide Level 18.4 Anion Gap 13 Estimat Glomerular Filtration Rate 48 Lactic Acid Level 2.7 Protein Corrected Calcium 7.8 B-Type Natriuretic Peptide 117 Random Vancomycin Level 10.0 Date/Time Source Procedure Growth Status 04/16/17 06:40 Blood Peripheral Aerobic Blood Culture Pending Received 04/16/17 06:40 Blood Peripheral Anaerobic Blood Culture Pending Received 04/16/17 08:13 Nasal Aspirate Influenza Types A,B Antigen (SHAUN) - Final Complete 04/16/17 07:40 Urine Catheterized Urine Urine Culture Pending Received Imaging Last Impressions Chest X-Ray 04/17/17 0600 Signed Impressions: Service Date/Time: April 04:31 - CONCLUSION: 1. Cardiomegaly and findings of vascular congestion without overt failure. This is new when compared with the prior exam. Sly West MD Abdomen X-Ray 04/17/17 0000 Signed Impressions: Service Date/Time: April 08:17 - CONCLUSION: Mildly prominent central bowel loops again seen could be obstruction versus ileus. Raul Cevallos MD Head CT 04/16/17 0621 Signed Impressions: Service Date/Time: Sunday, April 16, 2017 08:09 - CONCLUSION: Cerebral atrophy and chronic ischemic small vessel vasculopathy. Raul Cevallos MD Abdomen/Pelvis CT 04/16/17 0000 Signed Impressions: Service Date/Time: Sunday, April 16, 2017 08:12 - CONCLUSION: 1. Multiple dilated small bowel loops greatest within the right mid abdomen with slight inflammatory changes. Partial obstruction cannot be excluded. 2. Resolution of previous identified abdominal rectus musculature hematomas. 3. Small amount of pelvic free fluid. 4. Bibasilar patchy infiltrates greater right lower lobe and more prominent on current study. 5. Diverticulosis without diverticulitis. Raul Cevallos MD Physical Exam HEENT: PERRL; normocephalic; atraumatic; no jaundice. CHEST: coarse CARDIAC: RRR ABDOMEN: Soft, mildly distended, diffuse TTP; no hepatosplenomegaly; bowel sounds are present in all four quadrants. EXTREMITIES: No clubbing, cyanosis, or edema. SKIN: Normal; no rash; no jaundice. ENTERPRISE ARCHITECT MANAGER: lethargic, mildly confused (Cammy Moreau STRATIGRAPHY TEACHER) Assessment and Plan Plan ASSESSMENT - abd pain, n/v, diarrhea - ileus vs small bowel obstruction. CT showed abd rectus hematoma and mult dilated loops small bowel, cant exclude obstruction. hx high grade small bowel obstruction s/p AMIE and laparoscopy in 2008. limited hx. KUB 04/17/16 ileus vs obstruction. NH WNL. - supratherapeutic INR, dig toxicity, CAP, AF, AMBER per CCM INR improved PLAN - reinsert NGT - stool studies - lipase - c diff pending - GS consult - consider SBFT, if GS wants - d/w RN pt seen and examined by Dr Carlin and myself and this note is written on her behalf (Cammy Moreau) Physician Comments seen, examined agree with above ngt reinserted -150 cc of gastric content no bowel movement yet trial of Dulcolax supp and enema for now (Brianna Carlin MD) Cammy Moreau Apr 17, 2017 11:11 Brianna Carlin MD Apr 17, 2017 13:57
[2017-04-17] MEDS: SODIUM CHLORIDE 0.9% FLUSH 10 ML FLUSH IV FLUSH SCH ×2 (13:05→20:44)
--- NOTE | 2017-04-17 13:49 | HHI.CCPN ---
Subjective Remarks/Hospital Course This is an 81-year-old female that presented to the ED , secondary to altered mental status. Per report from family at bedside, the patient has been feeling sick having generalized weakness for approximately 3 weeks. The patient reported having diarrhea 3-4 times per day. Per report from [facility], she was hypotensive on scene. The patient is lethargic and severely weak but does respond appropriately to questions. She complained of back pain and abdominal pain upon palpitation. She reports episodes of nausea and vomiting . Upon admission to the ED laboratory and imaging studies were performed. The patient was noted to have a significant leukocytosis suggestive bilateral lobe pneumonia on CT as well as dilated small bowel loops. Patient's INR was noted to be 7.1. Critical care medicine was consulted. Subjective: 04/17: Afebrile. Leukocytosis worsening. Lactic acid increased. ID consulted. Patient complained of continued abdominal pain. C. difficile pending .Patient removed NG tube will be replaced and continued on low intermittent wall suction. Patient continues with generalized malaise and weakness. General surgery also has been consulted and awaiting recommendations. She received vitamin K yesterday for supratherapeutic INR. INR this a.m. 1.7, plan to initiate heparin infusion in the event of possible surgical intervention, versus restarting Coumadin at this time for INR target of 2.0-3.0. Objective Vital Signs Date Time Temp Pulse Resp B/P (MAP) Pulse Ox O2 Delivery O2 Flow Rate FiO2 04/17/17 12:15 74 32 166/79 (108) 98 04/17/17 09:36 Nasal Cannula 2.00 04/17/17 08:00 97.9 Intake and Output 04/17/17 04/17/17 04/18/17 08:00 16:00 00:00 Intake Total 720 ml Output Total 500 ml Balance 220 ml Result Diagram: 04/17/17 0322 04/17/17 0322 Other Results Microbiology Date/Time Source Procedure Growth Status 04/16/17 08:13 Nasal Aspirate Influenza Types A,B Antigen (SHAUN) - Final Complete 04/16/17 00:00 Urine Catheterized Urine Streptococcus pneumoniae Antigen (M - Final PRESUMPTIVE NEGATIVE FOR STREPTOCOCCU... Complete Imaging Last Impressions Head CT 04/16/17 0621 Signed Impressions: Service Date/Time: Sunday, April 16, 2017 08:09 - CONCLUSION: Cerebral atrophy and chronic ischemic small vessel vasculopathy. Raul Cevallos MD Chest X-Ray 04/16/17 0621 Signed Impressions: Service Date/Time: Sunday, April 16, 2017 06:32 - CONCLUSION: 1. Cardiomegaly. No acute pulmonary disease. Sly West MD Abdomen/Pelvis CT 04/16/17 0000 Signed Impressions: Service Date/Time: Sunday, April 16, 2017 08:12 - CONCLUSION: 1. Multiple dilated small bowel loops greatest within the right mid abdomen with slight inflammatory changes. Partial obstruction cannot be excluded. 2. Resolution of previous identified abdominal rectus musculature hematomas. 3. Small amount of pelvic free fluid. 4. Bibasilar patchy infiltrates greater right lower lobe and more prominent on current study. 5. Diverticulosis without diverticulitis. Raul Cevallos MD Objective Remarks V/S 105/57 Pulse 71 O2 saturation 97% GENERAL: This is a well-developed well-nourished critically ill elderly female, extremely lethargic in moderate distress complaints of abdominal and back pain SKIN: Warm and dry. HEAD: Atraumatic. Normocephalic. EYES: Pupils equal and round. No scleral icterus. No injection or drainage. ENT: No nasal bleeding or discharge. Mucous membranes pink and dry. Currently 2 L nasal cannula NECK: Trachea midline. No JVD. CARDIOVASCULAR: Normal rate, regular rhythm. RESPIRATORY: No accessory muscle use. Clear to auscultation. Breath sounds equal bilaterally. GASTROINTESTINAL: Abdomen soft, non-tender, nondistended. No guarding. MUSCULOSKELETAL: Extremities without clubbing, cyanosis, or edema. No obvious deformities. NEUROLOGICAL: Lethargic. RASS 0. No gross focal/sensory deficits. Follows commands in all 4 extremities. A/P Assessment and Plan This is an 81-year-old female with multiple comorbidities, presenting with altered mental status ,abdominal pain, pneumonia, probable sepsis with a supratherapeutic INR. The patient is critically ill . Admit to ICU. Plan by systems: Neurologic: Toxic encephalopathy Chronic back pain Neurochecks per ICU protocol Avoid long-acting sedatives Ofirmev 1 g every 6 hours 24 hours Ammonia level-23 Respiratory: COPD Probable community-acquired pneumonia Maintain O2 sat greater than 92% Provide O2 1-4 L/m nasal cannula Duo nebs every 4 hours when necessary for wheezing Incentive spirometry while awake 04/17 Chest [id number], now with pulmonary vascular congestion, no overt failure 04/16 CT- B/L lower lobe pneumonia Chest x-rays and ABGs when clinically indicated Cardiovascular: Chronic Atrial fibrillation-rate controlled Digoxin toxicity Coronary artery disease Cardiomegaly Hold Coumadin secondary to supratherapeutic INR patient normally on 5 mg/day 04/16 EKG- ST , LAD Initial digoxin level 2.3 continue to trend Obtain echo-last echo recorded during a hospitalization was 01/2013 Renal: AMBER-resolved Probable UTI Insert Esquivel -- Strict I/Os FEN/GI: Abdominal pain Possible small bowel obstruction versus ileus Diverticulosis GERD Moderate hiatal hernia Electrolyte derangement Maintain NPO status for now NG tube to low intermittent wall suction Zofran for nausea Continue 0.9 NS at 42/hr Famotidine for GI prophylaxis GI consulted follow-up recommendations Follow-up C. difficile PCR Hyponatremia , chronic??? Continue monitor Possible Ischemic bowel?? General surgery consulted will await recommendations regarding SBFT, or other imaging studies Heme/ID: Severe sepsis Bandemia Leukocytosis Mild protein calorie malnutrition Probable CAP Possible UTI Supratherapeutic INR Lactic acidemia 04/16 Vitamin K 10 mg IVPB now- INR 7.1, post Vit K now 1.7.Will initiate Heparin infusion in the interim, with plans to restart Coumadin if no surgical interventions planned will discuss with Gen Surgery Trend INR maintain level 2.0-3.0 Monitor CBC 04/16 Patient received Atrezonam 2 g and azithromycin IV 100 mg in the ED Obtain blood and urine [id number] results. pneumococcal urine antigen- negative Begin empiric antibiotics Flagyl 500 mg every 8 hours, Atrezonam 2 g every 8 hours and Vancomycin per pharmacy dosing Initial lactate 4.7->2.3->2.7 today, bands 11%-16% now worsening F/U C. difficile PCR Endocrine: Glucose monitoring per ICU protocol. Low dose regimen -- SSI Prophylaxis: GI Prophylaxis Famotidine BID DVT Prophylaxis -- SCDs will begin Heparin infusion Lines: Peripheral IVs 2 providing adequate access. Central line if indicated Dispo: my billing statement This patient remains critically ill with one or more organ systems which are or may become a threat to life. I have spent in excess of 35 minutes discontinuously in the care and management of this patient. This time is exclusive of procedures, and includes, but is not limited to, evaluation of the patient, review of the medical record, discussions with family, consultants, nursing staff, or respiratory therapy, and documentation in the medical record. D/W- patient's daughter in law at bedside, Dr. Alejandre and BACKPACKERS MANAGER at bedside ([place]) Physician Maria E Iglesias MD Apr 17, 2017 13:49
[2017-04-17] MEDS: VANCOMYCIN 1,000 MG/NS 250 ML IV SCH ×2 (13:56)
[2017-04-17] MEDS ORDERED: BISACODYL 10 MG SUPP RECTAL ONE (14:00)
[2017-04-17] MEDS ORDERED: LABETALOL HCL 100 MG/20 ML VIAL IV PUSH PRN (14:30)
[2017-04-17] MEDS ORDERED: SOD PHOSPHATE/SOD BIPHOSPHATE (ADULT) ENEMA 133ML RECTAL ONE (14:30)
[2017-04-17] MEDS ORDERED: PILL SPLITTER OTHER PRN (15:00)
[2017-04-17 15:13] LABS: ALBUMIN 2.5 GM/DL (3.4-5.0); AST (GOT) 15 U/L (15-37); BICARBONATE 18.2 MEQ/L (21.0-32.0); BLOOD UREA NITROGEN 25 MG/DL (7-18); CALCIUM 7.7 MG/DL (8.5-10.1); CHLORIDE 104 MEQ/L (98-107); CREATININE 0.88 MG/DL (0.50-1.00); GLOMERULAR FILTRATION RATE 62 ML/MIN (>89); GLUCOSE,RANDOM 134 MG/DL (74-106); SODIUM (NA) 134 MEQ/L (136-145)
[2017-04-17 15:16] LABS: ALKALINE PHOSPHATASE 73 U/L (45-117); ALT (GPT) 17 U/L (10-53); TOTAL BILIRUBIN ADULT 0.6 MG/DL (0.2-1.0); TOTAL PROTEIN 6.1 GM/DL (6.4-8.2)
[2017-04-17] MEDS: D5-1/2 NS + KCL 20 MEQ INJ 1,000 ML IV SCH (15:33)
--- NOTE | 2017-04-17 16:06 | PD.ID.CON ---
History of Present Illness Service ID Consult Requested By Dr Vargas Reason for Consult leukocytosis and lactic acidosis Primary Care Physician Hipolito Cadena M.D. Diagnoses: History of Present Illness 81 yo female with multiple medical problems presents to the ED , secondary to altered mental status. Per report patient has been feeling sick having generalized weakness for approximately 3 weeks as well as diarrhea 3-4 times per day. Per report from [facility], she was hypotensive on scene. Laboratory and imaging studies were performed that showed significant leukocytosis suggestive bilateral lobe pneumonia on CT as well as dilated small bowel loops. Patient's INR was noted to be 7.1. CT was done w/o IV or oral contrast and showed Multiple dilated small bowel loops greatest within the right mid abdomen with slight inflammatory changes. Partial obstruction cannot be excluded. Pt is not stooling and her C.diff test therefore can not be submitted She was started on broad spectrum abx (vanco, azctam, flagyl) and her WBC is even worse today Review of Systems ROS Limitations: Clinical Condition, Altered Mental Status Past Family Social History Allergies: Coded Allergies: adhesive (Unverified Allergy, Severe, 11/19/16) codeine (Unverified Allergy, Severe, N/V, 11/19/16) latex (Unverified Allergy, Severe, 11/19/16) propoxyphene (Unverified Allergy, Severe, NASUSEA VOMITING, 11/19/16) hydrocodone (Unverified Allergy, Intermediate, NAUSEA, 11/19/16) ceftriaxone (Unverified Allergy, Mild, Rash, 11/19/16) The patient had reddness on her chest after the Rocephin aspirin (Verified Allergy, Unknown, 04/16/17) Uncoded Allergies: HYDROCODONE (Adverse Reaction, Intermediate, 11/20/10) Past Medical History arrhythmia CAD COPD GERD HTN Past Surgical History appendectomy lumpectomy cataract surgery kyphoplasty laparoscopy and AMIE for small bowel obstruction Active Ordered Medications Medications where reviewed in EMR Antibiotics Include: azactam, flagyl, vancomycin Family History unobtainable Social History unknown Physical Exam Vital Signs Vital Signs Date Time Temp Pulse Resp B/P (MAP) Pulse Ox O2 Delivery O2 Flow Rate FiO2 04/17/17 13:00 77 04/17/17 12:45 76 04/17/17 12:30 77 04/17/17 12:15 74 32 166/79 (108) 98 04/17/17 12:15 74 04/17/17 12:00 74 30 158/74 (102) 99 04/17/17 12:00 74 04/17/17 11:45 72 04/17/17 11:45 72 31 149/70 (96) 98 04/17/17 11:30 71 04/17/17 11:30 71 29 114/57 (76) 97 04/17/17 11:15 75 04/17/17 11:15 75 35 116/55 (75) 95 04/17/17 11:14 76 04/17/17 11:14 76 31 110/56 (74) 95 04/17/17 11:10 93 04/17/17 11:10 93 31 198/93 (128) 95 04/17/17 11:01 95 33 188/130 (149) 95 04/17/17 11:01 95 04/17/17 11:00 95 37 95 04/17/17 11:00 95 04/17/17 10:35 95 30 173/84 (113) 95 04/17/17 10:35 95 04/17/17 10:02 92 04/17/17 10:02 92 28 188/89 (122) 96 04/17/17 10:00 91 04/17/17 10:00 91 29 183/88 (119) 96 04/17/17 09:36 95 Nasal Cannula 2.00 04/17/17 09:13 92 26 171/94 (119) 95 04/17/17 09:13 92 04/17/17 09:05 93 26 185/106 (132) 95 04/17/17 09:05 93 04/17/17 09:01 92 29 166/104 (124) 95 04/17/17 09:01 92 04/17/17 09:00 94 04/17/17 09:00 94 29 96 04/17/17 08:00 93 04/17/17 08:00 97.9 93 30 177/86 (116) 95 04/17/17 06:00 90 04/17/17 04:00 93 04/17/17 04:00 97.9 93 28 167/80 (109) 95 04/17/17 02:00 93 04/17/17 01:09 95 Nasal Cannula 2.00 04/17/17 00:00 100 04/17/17 00:00 98.0 100 28 143/70 (94) 93 04/16/17 22:00 101 04/16/17 20:00 98.3 95 26 152/77 (102) 95 04/16/17 20:00 93 04/16/17 19:34 94 Nasal Cannula 2.00 04/16/17 18:00 93 04/16/17 17:22 95 Nasal Cannula 2.00 Physical Exam CONSTITUTIONAL/GENERAL: This is an adequately nourished patient, in no apparent distress. TUBES/LINES/DRAINS: SKIN: No jaundice, rashes, or lesions. . Skin temperature appropriate. Not diaphoretic. HEAD: Atraumatic. Normocephalic. EYES: Pupils equal and round and reactive. Extraocular motions intact. No scleral icterus. No injection or drainage. Fundi not examined. ENT: Hearing grossly normal. Nose without bleeding or purulent drainage. Throat without visible erythema, exudates, masses, or lesions. NECK: Trachea midline. Supple, nontender. CARDIOVASCULAR: Regular rate and rhythm without murmurs, gallops, or rubs. No JVD. Peripheral pulses symmetric. RESPIRATORY/CHEST: Symmetric, unlabored respirations. Clear to auscultation. Breath sounds equal bilaterally. No wheezes, rales, or rhonchi. GASTROINTESTINAL: Abdomen soft, non-tender, moderately distended. No hepato- splenomegaly, or palpable masses. No guarding. Bowel sounds hypoactive NGT to suction with some blood in it GENITOURINARY: Without palpable bladder distension. Esquivel catheter in place with dark yellow urine MUSCULOSKELETAL: Extremities without clubbing, cyanosis, or edema. No joint tenderness or effusion noted. No calf tenderness. No mottling or clubbing. LYMPHATICS: No palpable cervical or supraclavicular adenopathy. NEUROLOGICAL: Awake and alert. Motor and sensory grossly within normal limits. Follows commands. Cognitively sharp. Moves all extremities. PSYCHIATRIC: No obvious anxiety/depression. no apparent hallucinations or other psychotic thought process. Laboratory Laboratory Tests Test 04/16/17 17:00 04/16/17 19:33 04/17/17 00:30 04/17/17 03:22 Nasal Screen MRSA (PCR) MRSA NOT DETECTED Lactic Acid Level 4.3 2.3 2.7 White Blood Count 35.8 Red Blood Count 4.04 Hemoglobin 12.4 Hematocrit 36.3 Mean Corpuscular Volume 89.9 Mean Corpuscular Hemoglobin 30.6 Mean Corpuscular Hemoglobin Concent 34.0 Red Cell Distribution Width 14.6 Platelet Count 350 Mean Platelet Volume 7.1 Neutrophils (%) (Auto) 96.1 Lymphocytes (%) (Auto) 0.9 Monocytes (%) (Auto) 2.9 Eosinophils (%) (Auto) 0.0 Basophils (%) (Auto) 0.1 Neutrophils # (Auto) 34.4 Lymphocytes # (Auto) 0.3 Monocytes # (Auto) 1.0 Eosinophils # (Auto) 0.0 Basophils # (Auto) 0.0 CBC Comment AUTO DIFF Differential Total Cells Counted 100 Neutrophils % (Manual) 82 Band Neutrophils % 16 Monocytes % 2 Neutrophils # (Manual) 35.1 Differential Comment FINAL DIFF MANUAL Platelet Estimate NORMAL Platelet Morphology Comment NORMAL Red Cell Morphology Comment NORMAL Prothrombin Time 17.4 Prothromb Time International Ratio 1.7 Blood Urea Nitrogen 24 Creatinine 1.09 Random Glucose 138 Total Protein 6.2 Albumin 2.6 Calcium Level 7.3 Phosphorus Level 2.3 Magnesium Level 1.7 Alkaline Phosphatase 76 Aspartate Amino Transf (AST/SGOT) 11 Alanine Aminotransferase (ALT/SGPT) 14 Total Bilirubin 0.6 Sodium Level 133 Potassium Level 4.1 Chloride Level 102 Carbon Dioxide Level 18.4 Anion Gap 13 Estimat Glomerular Filtration Rate 48 Protein Corrected Calcium 7.8 B-Type Natriuretic Peptide 117 Random Vancomycin Level 10.0 Test 04/17/17 14:24 Blood Urea Nitrogen 25 Creatinine 0.88 Random Glucose 134 Total Protein 6.1 Albumin 2.5 Calcium Level 7.7 Alkaline Phosphatase 73 Aspartate Amino Transf (AST/SGOT) 15 Alanine Aminotransferase (ALT/SGPT) 17 Total Bilirubin 0.6 Sodium Level 134 Potassium Level 3.7 Chloride Level 104 Carbon Dioxide Level 18.2 Anion Gap 12 Estimat Glomerular Filtration Rate 62 Date/Time Source Procedure Growth Status 04/16/17 06:40 Blood Peripheral Aerobic Blood Culture - Preliminary NO GROWTH IN 1 DAY Resulted 04/16/17 06:40 Blood Peripheral Anaerobic Blood Culture - Preliminary NO GROWTH IN 1 DAY Resulted 04/16/17 08:13 Nasal Aspirate Influenza Types A,B Antigen (SHAUN) - Final Complete 04/17/17 14:00 Urine Catheterized Urine Legionella Antigen Pending Received 04/17/17 14:00 Urine Catheterized Urine Streptococcus pneumoniae Antigen (M Pending Received Result Diagram: 04/17/17 0322 04/17/[address] images/ findings were dw Dr Torres Last Impressions Chest X-Ray 04/17/17 0600 Signed Impressions: Service Date/Time: April 04:31 - CONCLUSION: 1. Cardiomegaly and findings of vascular congestion without overt failure. This is new when compared with the prior exam. Sly West MD Abdomen X-Ray 04/17/17 0000 Signed Impressions: Service Date/Time: April 08:17 - CONCLUSION: Mildly prominent central bowel loops again seen could be obstruction versus ileus. Raul Cevallos MD Head CT 04/16/17 0621 Signed Impressions: Service Date/Time: Sunday, April 16, 2017 08:09 - CONCLUSION: Cerebral atrophy and chronic ischemic small vessel vasculopathy. Raul Cevallos MD Abdomen/Pelvis CT 04/16/17 0000 Signed Impressions: Service Date/Time: Sunday, April 16, 2017 08:12 - CONCLUSION: 1. Multiple dilated small bowel loops greatest within the right mid abdomen with slight inflammatory changes. Partial obstruction cannot be excluded. 2. Resolution of previous identified abdominal rectus musculature hematomas. 3. Small amount of pelvic free fluid. 4. Bibasilar patchy infiltrates greater right lower lobe and more prominent on current study. 5. Diverticulosis without diverticulitis. Raul Cevallos MD Assessment and Plan Assessment and Plan Leukocytosis Ileus vs partial obstruction - c.diff also highlyu on the least, no h/o c.diff per records Imaging study suboptimal 2/2 lack of IV and oral contrast - dw radiologist - Repeat CT abd/pel with IV and oral contrast (oral if feasible) to evaluate for bowel wall thickness - stool for c.diff - cont IV flagyl - further rec's per CT findings Inga Victoria MD Apr 17, 2017 16:06
--- NOTE | 2017-04-17 16:12 | ECHRPT ---
Indication: POSS SEPSIS, ENDOCARDITIS CONCLUSIONS Normal left ventricular size. Wall thickness is normal. Wall thickness is normal the left ventricular systolic function is normal with an estimated ejection fraction in the range of 55-60%. The right atrium is not well visualized. The interatrial septum not well visualized. Trace mitral valve regurgitation. Moderate mitral annular calcification. The pulmonary valve is not well visualized. BP: / HR: Rhythm: Sinus Technical Quality:Fair FINDINGS LEFT VENTRICLE Normal left ventricular size. Wall thickness is normal. Wall thickness is normal the left ventricular systolic function is normal with an estimated ejection fraction in the range of 55-60%. RIGHT VENTRICLE Normal right ventricular size and systolic function. LEFT ATRIUM The left atrial size is normal. RIGHT ATRIUM The right atrium is not well visualized. ATRIAL SEPTUM The interatrial septum not well visualized. AORTA The aortic root and proximal ascending aorta are normal in size on limited imaging. MITRAL VALVE Trace mitral valve regurgitation. Moderate mitral annular calcification. AORTIC VALVE Trileaflet aortic valve. No aortic valve stenosis or regurgitation. TRICUSPID VALVE Structurally normal tricuspid valve. No tricuspid valve stenosis or regurgitation. PULMONARY VALVE The pulmonary valve is not well visualized. VESSELS The inferior vena cava is normal in size. PERICARDIUM No pericardial effusion. Robert Bertrand MD (Electronically Signed) Final Date:17 April 2017 16:11
[2017-04-17] MEDS ORDERED: ALBUMIN 5% INJ 500 ML IV ONE ×2 (16:30→23:30)
--- NOTE | 2017-04-17 17:54 | MB ---
cc: LUBNA REYNOLDS DATE OF CONSULTATION: 04/17/2017 REFERRING PHYSICIAN: Dr. Carlin, GI. REASON FOR CONSULTATION: Abdominal pain, possible obstruction. HISTORY OF PRESENT ILLNESS The patient is a 81-year-old female who was admitted to [facility] with altered mental status. The patient apparently has had four weeks of severe diarrhea on the patient was found to have a lactic acidosis and leukocytosis. The patient underwent a work up which did show lactic acid level of 4 which since has decreased. Also a white blood cell count was elevated at 35. Imaging including CT scan did show some loops of small bowel, nonspecific for ileus versus possibly early partial obstruction. Currently the patient states that she feels slightly better but is still significantly tender and bloated in the abdomen. She had NG tube placed which has some a benign bilious output. The patient describes pain as diffuse and constant and denies head pain like this prior. REVIEW OF SYSTEMS 12 point review of systems was discussed with the patient, is negative except for the pertinent positives mentioned above in history of present illness. PAST MEDICAL HISTORY 1. History of cardiac arrhythmia 2. COPD 3. Gastroesophageal reflux disease 4. Hiatal hernia 5. Hypertension PAST SURGICAL HISTORY 1. Appendectomy. 2. Previous surgery for bowel obstruction 10 years ago 3. kyphoplasty 4. carotid endarterectomy 5. partial hysterectomy 6. cataract surgery. ALLERGIES ADHESIVE CODEINE LATEX PROPOXYPHENE HYDROCODONE CEFTRIAXONE MEDICATIONS 1. albuterol 2. Carisoprodol 3. Coumadin 4. amiodarone 5. Digoxin. 6. Simvastatin. 7. Tramadol 8. Citalopram 9. Sucralfate 10. Omeprazole 11. Levothyroxine. SOCIAL HISTORY: The patient lives at home independently, is very frail, and minimal physical activity. FAMILY HISTORY: Noncontributory PHYSICAL EXAMINATION Vital signs: Blood pressure 158/74. Respiratory rate 30, pulse 74, O2 saturation is 99%. The patient is a frail, elderly female in no acute distress. He does appear mildly acutely ill as well as some chronically frail. HEAD, EYES, EARS, NOSE, AND THROAT: Normocephalic, atraumatic. Pupils round, to light. Sclerae is anicteric. Oral cavity is clear. Airway is patent. NECK: Neck is supple without JVD. LUNGS: Breath sounds present bilaterally. Nonlabored breathing pattern. HEART: The heart is irregular with no murmurs. ABDOMEN: The abdomen is soft, mildly distended with some subjective tenderness without peritonitis, rebound or guarding. No hernias. No ascites. No organomegaly. No masses, very hypoactive bowel sounds. BACK: Notes no CVA tenderness. EXTREMITIES: Minimal edema. NEUROLOGIC: The patient is wake, alert, oriented, answers questions with good insight. Nonfocal peripheral exam. Cranial II-XII are grossly intact. LABORATORY FINDINGS: Urinalysis is positive for ketones. INR upon admission is 7, now down to 1.7. Creatinine of 0.8 down from 1.0, hemoglobin is 12 down from 14. White blood cell count 35.8 from 25.2, platelets 350. Bands, neutrophils, 16 up from 11. ASSESSMENT/PLAN The patient is an 81-year-old female with diarrhea, acidosis and leukocytosis. The patient has abdominal distention, no hypoactive bowel sounds. The patient clinically likely has a enteritis with secondary volume loss and cyclic formation of hypovolemia and further of acidosis. Possibly a physiologic or infectious cause of enteritis then progressing to mild ischemic enteritis due to hypovolemia. I do think the patient, will continue to undergo resuscitation as much can be done with the patient's history of heart disease and congestive heart failure to increase perfusion and replete volume loss. Also the patient empiric antibiotics and look for stool studies for possible infectious cause. The patient has no obvious perforation or ischemic changes on the scan, however this was done without contrast. I discussed possible diagnostic surgery to evaluate for possible intra-abdominal process versus continued medical management and watchful waiting with the patient and her two sons at the bedside. I had an extensive discussion with them about the potential diagnosis and potential outcomes and the role of surgery if they are proactively versus more reactively. We discussed the possible scenarios with the patient and her mother and she would like to hold off on any surgery at this time and continue medical therapy. The patient has also expressed that she has significant clinical deterioration that she would want surgery for surgical intervention if it was potentially life-saving. We will continue medical management of follow closely with the patient and serial abdominal examinations and if the patient shows significant worsening I would recommend intervention. However, continued resuscitation and medical management is appropriate this time. Thank you very much for this consultation, we will follow along closely. MD BESSIE Lara/elio /4:46 PM /5:01 PM
[2017-04-17 19:11] LABS: LACTIC ACID SEPSIS PROTOCOL 3.5 mmol/L (0.4-2.0)
[2017-04-17] MEDS: AZTREONAM INJ 2,000 MG in SODIUM CHLORIDE 0.9% INJ 100 ML IV SCH (19:27)
[2017-04-17] MEDS ORDERED: DIATRIZOATE MEGLUM/DIATRIZOATE SOD 9 ML CUP PO ONE (21:00)
[2017-04-18] VITALS (28 sets, daily range): BP systolic 102–160; BP diastolic 56–87; PULSE 85–102; RESP 25–49; TEMP 97.8–98.8; O2SAT 95–99
[2017-04-18] MEDS: ACETAMINOPHEN 1000 MG/100 ML 100 ML IV SCH ×2 (00:22→05:18)
[2017-04-18] MEDS: AZTREONAM INJ 2,000 MG in SODIUM CHLORIDE 0.9% INJ 100 ML IV SCH ×3 (02:16→17:40)
[2017-04-18] MEDS: CHLORHEXIDINE GLUCONATE 2 % 1 PACK (2 CLOTHS) TOP SCH (03:57)
[2017-04-18] MEDS: metroNIDAZOLE 500 MG INJ 100 ML IV SCH ×3 (03:58→21:09)
[2017-04-18] MEDS: LEVOTHYROXINE SODIUM 150 MCG TAB PO SCH (05:18)
--- NOTE | 2017-04-18 05:19 | RADRPT ---
EXAM DATE/TIME: 04/18/2017 04:03 [facility] COMPARISON: CHEST SINGLE AP, April 17, 2017, 4:31. INDICATIONS : Evaluate for respiratory failure. MEDICAL HISTORY : Hiatal hernia. Gastroesophageal reflux disease. Hypertension. Chronic obstructive pulmonary disease. SURGICAL HISTORY : Hysterectomy. ENCOUNTER: Initial ACUITY: 1 week PAIN SCORE: Non-responsive. LOCATION: chest FINDINGS: A single view of the chest demonstrates the lungs to be symmetrically aerated without evidence of mas s, infiltrate or effusion. There is some pulmonary venous congestion. The cardiomediastinal contours are unremarkable. Osseous structures are intact. There is an NG tube which appears to be coiled in the stomach.. CONCLUSION: Pulmonary venous congestion. Otherwise no significant change compared to the prior study. Joseph Maxwell MD on April 18, 2017 at 5:16 Board Certified Radiologist. This report was verified electronically.
[2017-04-18 06:25] LABS: AUTOMATED NEUTROPHIL # 18.4 TH/MM3 (1.8-7.7); BASOPHIL # 0.1 TH/MM3 (0-0.2); BASOPHIL % 0.3 % (0.0-2.0); HEMATOCRIT 27.8 % (35.0-46.0); HEMOGLOBIN 9.3 GM/DL (11.6-15.3); LYMPH % 1.7 % (9.0-44.0); LYMPHOCYTE # 0.3 TH/MM3 (1.0-4.8); MEAN CELL VOLUME 88.9 FL (80.0-100.0); MEAN CORPUSCULAR HEMOGLOBIN 29.6 PG (27.0-34.0); MEAN CORPUSCULAR HGB CONC 33.3 % (32.0-36.0); MEAN PLATELET VOLUME 6.8 FL (7.0-11.0); MONO % 2.5 % (0.0-8.0); MONOCYTE # 0.5 TH/MM3 (0-0.9); NEUT % 95.5 % (16.0-70.0); PLATELET COUNT 251 TH/MM3 (150-450); RED BLOOD COUNT 3.13 MIL/MM3 (4.00-5.30); RED CELL DISTRIBUTION WIDTH 14.8 % (11.6-17.2); WHITE BLOOD COUNT 19.3 TH/MM3 (4.0-11.0)
[2017-04-18 07:09] LABS: ALBUMIN 3.4 GM/DL (3.4-5.0); ALT (GPT) 15 U/L (10-53); AST (GOT) 21 U/L (15-37); BLOOD UREA NITROGEN 26 MG/DL (7-18); CALCIUM 7.6 MG/DL (8.5-10.1); CHLORIDE 103 MEQ/L (98-107); CREATININE 0.79 MG/DL (0.50-1.00); GLOMERULAR FILTRATION RATE 70 ML/MIN (>89); GLUCOSE,RANDOM 98 MG/DL (74-106); LIPASE 71 U/L (73-393); PHOSPHORUS 1.1 MG/DL (2.5-4.9); SODIUM (NA) 133 MEQ/L (136-145)
[2017-04-18 07:17] LABS: ALKALINE PHOSPHATASE 53 U/L (45-117); DIGOXIN 0.7 NG/ML (0.8-2.0); TOTAL BILIRUBIN ADULT 0.7 MG/DL (0.2-1.0); TOTAL PROTEIN 5.8 GM/DL (6.4-8.2)
[2017-04-18] MEDS: INSULIN ASPART SUPPLEMENTAL SCALE SQ SCH ×4 (08:00→21:00)
--- NOTE | 2017-04-18 08:53 | HHI.PR ---
Subjective Subjective Notes patient feels better today Objective Vitals/I&O Vital Signs Date Time Temp Pulse Resp B/P (MAP) Pulse Ox O2 Delivery O2 Flow Rate FiO2 04/18/17 07:37 97 Nasal Cannula 2.00 04/18/17 06:00 90 04/18/17 04:00 97.9 30 158/71 (100) Labs Laboratory Tests Test 04/17/17 14:24 04/17/17 18:37 04/17/17 23:09 04/18/17 06:04 Blood Urea Nitrogen 25 26 Creatinine 0.88 0.79 Random Glucose 134 98 Total Protein 6.1 5.8 Albumin 2.5 3.4 Calcium Level 7.7 7.6 Alkaline Phosphatase 73 53 Aspartate Amino Transf (AST/SGOT) 15 21 Alanine Aminotransferase (ALT/SGPT) 17 15 Total Bilirubin 0.6 0.7 Sodium Level 134 133 Potassium Level 3.7 3.0 Chloride Level 104 103 Carbon Dioxide Level 18.2 19.0 Anion Gap 12 11 Estimat Glomerular Filtration Rate 62 70 Lactic Acid Level 3.5 2.8 1.9 White Blood Count 19.3 Red Blood Count 3.13 Hemoglobin 9.3 Hematocrit 27.8 Mean Corpuscular Volume 88.9 Mean Corpuscular Hemoglobin 29.6 Mean Corpuscular Hemoglobin Concent 33.3 Red Cell Distribution Width 14.8 Platelet Count 251 Mean Platelet Volume 6.8 Neutrophils (%) (Auto) 95.5 Lymphocytes (%) (Auto) 1.7 Monocytes (%) (Auto) 2.5 Eosinophils (%) (Auto) 0.0 Basophils (%) (Auto) 0.3 Neutrophils # (Auto) 18.4 Lymphocytes # (Auto) 0.3 Monocytes # (Auto) 0.5 Eosinophils # (Auto) 0.0 Basophils # (Auto) 0.1 CBC Comment AUTO DIFF Phosphorus Level 1.1 Lipase 71 Digoxin Level 0.7 Date/Time Source Procedure Growth Status 04/16/17 06:40 Blood Peripheral Aerobic Blood Culture - Preliminary NO GROWTH IN 1 DAY Resulted 04/16/17 06:40 Blood Peripheral Anaerobic Blood Culture - Preliminary NO GROWTH IN 1 DAY Resulted 04/17/17 17:48 Stool Stool Pending Received 04/16/17 08:13 Nasal Aspirate Influenza Types A,B Antigen (SHAUN) - Final Complete 04/17/17 14:00 Urine Catheterized Urine Legionella Antigen - Final PRESUMPTIVE NEGATIVE FOR LEGIONELLA P... Complete 04/17/17 14:00 Urine Catheterized Urine Streptococcus pneumoniae Antigen (M - Final PRESUMPTIVE NEGATIVE FOR STREPTOCOCCU... Complete Abdomen: Non-distended, Non-tender Narrative Exam less tender abdomen, no peritonitis or rebound A/P Assessment and Plan 81yo female with diarrhea of unknown etiology (?infectious) causing severe dehydration leading to low flow mucosal bowel ischemia, stable. Overnight:resuscitation and rehydration going well, increased UOP, lactate better, WBC down., continue correcting electrolytes and gently rehydration CT scan cancelled by me due to plan of care d/w family extensively. no operation unless patient develops free air or evidence of perforation. would not put patient at risk for IV contract or load GI tract with water soluble contrast at this time. consider KUB PRN if concern is constantin for perforation. agree with ABX, stool studies, ?casuse of diarrhea, ID following discussed with son this AM Dr Carvajal covering over the weekend Deny Alejandre MD Apr 18, 2017 08:53
[2017-04-18] MEDS: RESP: ALBUTEROL 2.5 MG/IPRATROPIUM 0.5 MG NEB (PRN) INH (09:33)
[2017-04-18] MEDS: LACTULOSE SYRUP 20 GM/30 ML CUP PO SCH (09:38)
[2017-04-18] MEDS: SODIUM CHLORIDE 0.9% FLUSH 10 ML FLUSH IV FLUSH SCH ×2 (09:38→21:09)
[2017-04-18] MEDS: DOCUSATE SODIUM 50 MG/SENNA 8.6 MG TAB PO SCH ×2 (09:38→21:09)
[2017-04-18] MEDS: AMIODARONE 200 MG TAB PO SCH (09:38)
[2017-04-18] MEDS: POTASSIUM CHLOR 20 MEQ PREMIX 100 ML IV SCH ×2 (09:45→11:45)
[2017-04-18] MEDS: PANTOPRAZOLE SODIUM 40 MG VIAL IV PUSH SCH ×2 (09:45→22:14)
[2017-04-18 09:47] LABS: BANDS 22 % (0-6); LYMPHOCYTES 4 % (9-44); MONOCYTES 4 % (0-8); NEUTROPHIL # MANUAL DIFF 17.8 TH/MM3 (1.8-7.7); POLYS (SEG NEUTROPHILS) 70 % (16-70)
[2017-04-18 09:48] LABS: BURR CELLS 1+ (NORMAL); TOXIC GRANULATION 1+ (NORMAL)
--- NOTE | 2017-04-18 10:27 | HHI.CCPN ---
Subjective Remarks/Hospital Course This is an 81-year-old female that presented to the ED , secondary to altered mental status. Per report from family at bedside, the patient has been feeling sick having generalized weakness for approximately 3 weeks. The patient reported having diarrhea 3-4 times per day. Per report from [facility], she was hypotensive on scene. The patient is lethargic and severely weak but does respond appropriately to questions. She complained of back pain and abdominal pain upon palpitation. She reports episodes of nausea and vomiting . Upon admission to the ED laboratory and imaging studies were performed. The patient was noted to have a significant leukocytosis suggestive bilateral lobe pneumonia on CT as well as dilated small bowel loops. Patient's INR was noted to be 7.1. Critical care medicine was consulted. Subjective: 04/17: Afebrile. Leukocytosis worsening. Lactic acid increased. ID consulted. Patient complained of continued abdominal pain. C. difficile pending .Patient removed NG tube will be replaced and continued on low intermittent wall suction. Patient continues with generalized malaise and weakness. General surgery also has been consulted and awaiting recommendations. She received vitamin K yesterday for supratherapeutic INR. INR this a.m. 1.7, plan to initiate heparin infusion in the event of possible surgical intervention, versus restarting Coumadin at this time for INR target of 2.0-3.0. 04/18: Patient seen by General surgery Dr. Alejandre yesterday. Heparin infusion/ anticoagulation held ,secondary to possible surgical intervention yesterday, if no improvement in condition overnight. Patient's leukocytosis resolving, lactate now within normal limits. Patient states she feels better today. NG tube was noted to have approximately 400 cc of bloody gastric output , this morning GI notified. Anticoagulation continues to be on hold. Famotidine discontinued , Protonix twice a day initiated. INR pending this a.m. Electrolytes being repleted. The patient continues with gentle hydration of 30 cc/an hour. Objective Vital Signs Date Time Temp Pulse Resp B/P (MAP) Pulse Ox O2 Delivery O2 Flow Rate FiO2 04/18/17 07:37 97 Nasal Cannula 2.00 04/18/17 06:00 90 04/18/17 04:00 97.9 30 158/71 (100) Intake and Output 04/18/17 04/18/17 04/19/17 08:00 16:00 00:00 Intake Total 1740 ml Output Total 1400 ml Balance 340 ml Result Diagram: 04/18/17 0604 04/18/17 0604 Other Results Microbiology Date/Time Source Procedure Growth Status 04/16/17 08:13 Nasal Aspirate Influenza Types A,B Antigen (SHAUN) - Final Complete 04/17/17 14:00 Urine Catheterized Urine Legionella Antigen - Final PRESUMPTIVE NEGATIVE FOR LEGIONELLA P... Complete 04/17/17 14:00 Urine Catheterized Urine Streptococcus pneumoniae Antigen (M - Final PRESUMPTIVE NEGATIVE FOR STREPTOCOCCU... Complete 04/16/17 00:00 Urine Catheterized Urine Streptococcus pneumoniae Antigen (M - Final PRESUMPTIVE NEGATIVE FOR STREPTOCOCCU... Complete Imaging Last Impressions Head CT 04/16/17620 Signed Impressions: Service Date/Time: Sunday, April 16, 2017 08:09 - CONCLUSION: Cerebral atrophy and chronic ischemic small vessel vasculopathy. Raul Cevallos MD Chest X-Ray 04/16/17620 Signed Impressions: Service Date/Time: Sunday, April 16, 2017 06:32 - CONCLUSION: 1. Cardiomegaly. No acute pulmonary disease. Sly West MD Abdomen/Pelvis CT 04/16/17 0000 Signed Impressions: Service Date/Time: Sunday, April 16, 2017 08:12 - CONCLUSION: 1. Multiple dilated small bowel loops greatest within the right mid abdomen with slight inflammatory changes. Partial obstruction cannot be excluded. 2. Resolution of previous identified abdominal rectus musculature hematomas. 3. Small amount of pelvic free fluid. 4. Bibasilar patchy infiltrates greater right lower lobe and more prominent on current study. 5. Diverticulosis without diverticulitis. Raul Cevallos MD Objective Remarks V/S 158/72 Pulse 92 RR 26 O2 saturation 98% GENERAL: This is a well-developed well-nourished critically ill elderly female with no acute distress. Dates pain resolved SKIN: Warm and dry. HEAD: Atraumatic. Normocephalic. EYES: Pupils equal and round. No scleral icterus. No injection or drainage. ENT: No nasal bleeding or discharge. Mucous membranes pink and dry. Currently 2 L nasal cannula NECK: Trachea midline. No JVD. CARDIOVASCULAR: Normal rate, regular rhythm. RESPIRATORY: No accessory muscle use. Coarse rhonchi throughout lung ibanez. Breath sounds equal bilaterally. GASTROINTESTINAL: Abdomen soft, non-tender, nondistended. No guarding. NGT to low intermittent wall suction noted 400 cc of heme positive gastric output MUSCULOSKELETAL: Extremities without clubbing, cyanosis, or edema. No obvious deformities. NEUROLOGICAL: Lethargic. RASS 0. No gross focal/sensory deficits. Follows commands in all 4 extremities. A/P Assessment and Plan Plan by systems: Neurologic: Toxic encephalopathy-metabolic 2/2 sepsis-resolved Chronic back pain Neurochecks per ICU protocol Avoid long-acting sedatives Ofirmev 1 g every 6 hours discontinued Hold Soma, temazepam patient's home medications GCS 15, alert and oriented 3. Patient denies pain Respiratory: COPD Probable community-acquired pneumonia Pulmonary edema Maintain O2 sat greater than 92% Provide O2 1-4 L/m nasal cannula Duo nebs every 4 hours when necessary for wheezing Incentive spirometry while awake 04/18 Chest o-mma-tncvzaxeo vascular congestion 04/16 CT- B/L lower lobe pneumonia Chest x-rays and ABGs when clinically indicated Consider Lasix today 1 dose, if not improved dependent upon electrolyte results and correction Cardiovascular: Chronic Atrial fibrillation-rate controlled Digoxin toxicity-resolved Coronary artery disease Cardiomegaly Hold Coumadin secondary to supratherapeutic INR patient normally on 5 mg/day ( home medication) Trend INR-patient now with GI bleed all anticoagulation on hold 04/16 Initial digoxin level 2.3 ->0.7 on 04/18. Digoxin home medication reinitiated 0.125 mg/day continue to monitor level 04/18 Echo-ejection fraction is 55-60%. No RWMA Renal: AMBER-resolved Probable UTI Insert Esquivel -- Strict I/Os FEN/GI: Abdominal pain-resolved Possible small bowel obstruction versus ileus Diverticulosis GERD Moderate hiatal hernia Electrolyte derangement GI bleed Maintain NPO status except for medications 04/18-NG tube to LIWS -heme positive gastric output approximately 400 cc Zofran for nausea Famotidine discontinued for GI prophylaxis-Protonix 40 mg BID GI following- Dr. Carlin 04/17 C. difficile ISN-rysjrg-re results Hyponatremia , chronic??? Continue monitor 131 on admission now 133-mentation normal Hypokalemia 3.0, hypophosphatemia-a chin to receive 40 Meq KCl with phosphorus 30 mmol repletion Continue gentle hydration D5 NS w/ 20meq at 30 cc/hr Heme/ID: Severe sepsis Bandemia Leukocytosis Lactic acidemia Mild protein calorie malnutrition Probable CAP Possible UTI Supratherapeutic INR-resolved Vitamin K 10 mg IVPB now- INR 7.1 Trend INR 1.7, hold all anticoagulation in the setting of GI bleed Monitor CBC, and INR 04/16 Patient received Atrezonam 2 g and azithromycin IV 100 mg in the ED 04/16 blood and urine cultures-NGTD 04/17 Pneumococcal urine antigen- negative 04/17 empiric antibiotics Flagyl 500 mg every 8 hours, Atrezonam 2 g every 8 hours and Vancomycin per pharmacy dosing ID following-Dr. Victoria Initial lactate 4.7, bands 11% F/U C. difficile PCR Lactic acid 2.8->1.9 today Endocrine: Glucose monitoring per ICU protocol. Low dose regimen -- SSI Prophylaxis: GI Prophylaxis Famotidine BID DVT Prophylaxis -- SCDs No chemical DVT prophylaxis in the setting of supratherapeutic INR, and now with GI bleed Lines: Peripheral IVs 2 providing adequate access. Central line if indicated Dispo: my billing statement This patient remains critically ill with one or more organ systems which are or may become a threat to life. I have spent in excess of 39 minutes discontinuously in the care and management of this patient. This time is exclusive of procedures, and includes, but is not limited to, evaluation of the patient, review of the medical record, discussions with family, consultants, nursing staff, or respiratory therapy, and documentation in the medical record. D/W Dr. Alejandre and SOCK IRONER at bedside. Provided medical status update to the patient's , and son by telephone all questions answered. Physician Maria E Iglesias MD Apr 18, 2017 10:27
[2017-04-18 10:35] LABS: INTERNATIONAL NORMALIZED RATIO 1.8 RATIO; PROTHROMBIN TIME - PATIENT 18.4 SEC (9.8-11.6)
--- NOTE | 2017-04-18 10:52 | RADRPT ---
EXAM DATE/TIME: 04/18/2017 10:11 [facility] COMPARISON: CT ABDOMEN & PELVIS W/O CONTRAST, April 16, 2017, 8:12. ABDOMEN KUB ONLY, April 17, 2017, 8:17. INDICATIONS : Distention, concern for ileus. MEDICAL HISTORY : Chronic obstructive pulmonary disease. Hiatal hernia. Gastroesophageal reflux disease. Hyperten adamaris. SURGICAL HISTORY : Hysterectomy. ENCOUNTER: Initial ACUITY: 1 day PAIN SCORE: Non-responsive. LOCATION: Bilateral abdomen. FINDINGS: Slight interval progression of multiple loops of prominent air-filled small bowel loops in the centra l abdomen. Air is noted in the colon. No significant pneumatosis or free air. Interval placement of a n NGT or with somewhat unusual loop in the expected region of the GE junction. This is due to a moder ate to large size hiatal hernia noted on CT exam. Remainder of exam is unchanged. CONCLUSION: 1. Slight interval worsening partial small bowel obstruction versus adynamic ileus. 2. NGT likely in the stomach. Unusual course likely due to moderate to large hiatal hernia. Tarik Kwon MD on April 18, 2017 at 10:45 Board Certified Radiologist. This report was verified electronically.
[2017-04-18] MEDS ORDERED: POTASSIUM PHOSPHATE INJ 30 MMOL in SODIUM CHLOR 0.9% 250 ML INJ 250 ML IV ONE (11:00)
[2017-04-18] MEDS: DIGOXIN 0.125 MG TAB PO SCH (12:11)
[2017-04-18] MEDS: VANCOMYCIN 1,000 MG/NS 250 ML IV SCH ×2 (12:13)
[2017-04-18 12:57] LABS: HEMATOCRIT 29.7 % (35.0-46.0); HEMOGLOBIN 9.9 GM/DL (11.6-15.3)
[2017-04-18] MEDS ORDERED: FUROSEMIDE 40 MG/4 ML VIAL IV PUSH ONE (15:00)
[2017-04-18] MEDS ORDERED: HYDROmorphone HCL PF 2 MG/ML VIAL IV PUSH ONE (15:15)
[2017-04-18] MEDS: D5-1/2 NS + KCL 20 MEQ INJ 1,000 ML IV SCH (15:30)
--- NOTE | 2017-04-18 17:11 | HHI.PR ---
Addendum to Inpatient Note Additional Information pt was seen around 1630 full note to follow Inga Victoria MD Apr 18, 2017 17:11
[2017-04-18 18:03] LABS: HEMATOCRIT 27.4 % (35.0-46.0); HEMOGLOBIN 9.4 GM/DL (11.6-15.3)
[2017-04-18] MEDS ORDERED: BISACODYL 10 MG SUPP RECTAL ONE (19:45)
[2017-04-18 22:22] LABS: PHOSPHORUS 3.4 MG/DL (2.5-4.9)
--- NOTE | 2017-04-18 22:29 | HHI.GIFU ---
GI Follow-up Note Consult Follow-up Subjective: Patient laying in bed , ngt in place, cofee ground material.Had a asmall hard bm afyer enema .She feels better overall.No nause, vomiting.Gnerlal surgery evalsution noted./ Objective: PHYSICAL EXAMINATION: Vitals signs stable No fever Vital Signs Date Time Temp Pulse Resp B/P (MAP) Pulse Ox O2 Delivery O2 Flow Rate FiO2 04/18/17 20:00 98.8 101 38 106/57 (73) 95 04/18/17 20:00 101 04/18/17 18:30 97 04/18/17 18:00 95 04/18/17 16:00 91 04/18/17 16:00 97.9 91 49 102/56 (71) 95 04/18/17 15:00 101 HEENT: Pupils round and reactive to light; normocephalic; atraumatic; no jaundice. Throat is clear. NECK: Neck is supple, no JVD, no lymphadenopathy. CHEST: Chest is clear to auscultation and percussion. CARDIAC: Regular rate and rhythm with no murmur gallop or rubs. ABDOMEN: Soft, mildly distended, nontender; no hepatosplenomegaly; bowel sounds are present in all four quadrants. EXTREMITIES: No clubbing, cyanosis, or edema. SKIN: Normal; no rash; no jaundice. BOOM SUPERVISOR: No focal deficits; arousable Available Data (labs, X- Rays, Procedues) : Laboratory Tests Test 04/17/17 00:30 04/17/17 03:22 04/17/17 14:24 04/17/17 18:37 Lactic Acid Level 2.3 mmol/L 2.7 mmol/L 3.5 mmol/L White Blood Count 35.8 TH/MM3 Red Blood Count 4.04 MIL/MM3 Hemoglobin 12.4 GM/DL Hematocrit 36.3 % Mean Corpuscular Volume 89.9 FL Mean Corpuscular Hemoglobin 30.6 PG Mean Corpuscular Hemoglobin Concent 34.0 % Red Cell Distribution Width 14.6 % Platelet Count 350 TH/MM3 Mean Platelet Volume 7.1 FL Neutrophils (%) (Auto) 96.1 % Lymphocytes (%) (Auto) 0.9 % Monocytes (%) (Auto) 2.9 % Eosinophils (%) (Auto) 0.0 % Basophils (%) (Auto) 0.1 % Neutrophils # (Auto) 34.4 TH/MM3 Lymphocytes # (Auto) 0.3 TH/MM3 Monocytes # (Auto) 1.0 TH/MM3 Eosinophils # (Auto) 0.0 TH/MM3 Basophils # (Auto) 0.0 TH/MM3 CBC Comment AUTO DIFF Differential Total Cells Counted 100 Neutrophils % (Manual) 82 % Band Neutrophils % 16 % Monocytes % 2 % Neutrophils # (Manual) 35.1 TH/MM3 Differential Comment FINAL DIFF MANUAL Platelet Estimate NORMAL Platelet Morphology Comment NORMAL Red Cell Morphology Comment NORMAL Prothrombin Time 17.4 SEC Prothromb Time International Ratio 1.7 RATIO Blood Urea Nitrogen 24 MG/DL 25 MG/DL Creatinine 1.09 MG/DL 0.88 MG/DL Random Glucose 138 MG/DL 134 MG/DL Total Protein 6.2 GM/DL 6.1 GM/DL Albumin 2.6 GM/DL 2.5 GM/DL Calcium Level 7.3 MG/DL 7.7 MG/DL Phosphorus Level 2.3 MG/DL Magnesium Level 1.7 MG/DL Alkaline Phosphatase 76 U/L 73 U/L Aspartate Amino Transf (AST/SGOT) 11 U/L 15 U/L Alanine Aminotransferase (ALT/SGPT) 14 U/L 17 U/L Total Bilirubin 0.6 MG/DL 0.6 MG/DL Sodium Level 133 MEQ/L 134 MEQ/L Potassium Level 4.1 MEQ/L 3.7 MEQ/L Chloride Level 102 MEQ/L 104 MEQ/L Carbon Dioxide Level 18.4 MEQ/L 18.2 MEQ/L Anion Gap 13 MEQ/L 12 MEQ/L Estimat Glomerular Filtration Rate 48 ML/MIN 62 ML/MIN Protein Corrected Calcium 7.8 MG/DL B-Type Natriuretic Peptide 117 PG/ML Random Vancomycin Level 10.0 COMMENT Test 04/17/17 23:09 04/18/17 06:04 04/18/17 10:00 04/18/17 12:35 Lactic Acid Level 2.8 mmol/L 1.9 mmol/L White Blood Count 19.3 TH/MM3 Red Blood Count 3.13 MIL/MM3 Hemoglobin 9.3 GM/DL 9.9 GM/DL Hematocrit 27.8 % 29.7 % Mean Corpuscular Volume 88.9 FL Mean Corpuscular Hemoglobin 29.6 PG Mean Corpuscular Hemoglobin Concent 33.3 % Red Cell Distribution Width 14.8 % Platelet Count 251 TH/MM3 Mean Platelet Volume 6.8 FL Neutrophils (%) (Auto) 95.5 % Lymphocytes (%) (Auto) 1.7 % Monocytes (%) (Auto) 2.5 % Eosinophils (%) (Auto) 0.0 % Basophils (%) (Auto) 0.3 % Neutrophils # (Auto) 18.4 TH/MM3 Lymphocytes # (Auto) 0.3 TH/MM3 Monocytes # (Auto) 0.5 TH/MM3 Eosinophils # (Auto) 0.0 TH/MM3 Basophils # (Auto) 0.1 TH/MM3 CBC Comment AUTO DIFF Differential Total Cells Counted 100 Neutrophils % (Manual) 70 % Band Neutrophils % 22 % Lymphocytes % 4 % Monocytes % 4 % Neutrophils # (Manual) 17.8 TH/MM3 Differential Comment FINAL DIFF MANUAL Toxic Granulation 1+ Platelet Estimate NORMAL Platelet Morphology Comment NORMAL Nigel Cells 1+ Blood Urea Nitrogen 26 MG/DL Creatinine 0.79 MG/DL Random Glucose 98 MG/DL Total Protein 5.8 GM/DL Albumin 3.4 GM/DL Calcium Level 7.6 MG/DL Phosphorus Level 1.1 MG/DL Alkaline Phosphatase 53 U/L Aspartate Amino Transf (AST/SGOT) 21 U/L Alanine Aminotransferase (ALT/SGPT) 15 U/L Total Bilirubin 0.7 MG/DL Sodium Level 133 MEQ/L Potassium Level 3.0 MEQ/L Chloride Level 103 MEQ/L Carbon Dioxide Level 19.0 MEQ/L Anion Gap 11 MEQ/L Estimat Glomerular Filtration Rate 70 ML/MIN Lipase 71 U/L Digoxin Level 0.7 NG/ML Prothrombin Time 18.4 SEC Prothromb Time International Ratio 1.8 RATIO Magnesium Level 1.6 MG/DL Test 04/18/17 17:15 04/18/17 21:33 Hemoglobin 9.4 GM/DL Hematocrit 27.4 % Potassium Level 4.3 MEQ/L Phosphorus Level 3.4 MG/DL ASSESSMENT/PLAN: ileus vs sbo-clinically better drop in hb-suspect possible dehydration, no massive gi bleeding elevated wbc -r/o c diff-stoolpendin Recommendation monitor hb/ht ppi transfuse prn egd if hb continue s to drop stool c fidd enema/suppositories consider sbft if ok with surgery surger, id fu It was a pleasure seeing Viviane Elizalde. Thank you for this consult. Entered by: Brianna Little MD Apr 18, 2017 22:29
--- NOTE | 2017-04-18 23:20 | HHI.IDPN ---
Subjective Subjective Remarks stool + for noro virus case extensively dw Dr Uribe CT abd/pel cancelled 2/2 high risk for PO contrast Overall seem improved hemodynamically, upper GI bleed got worse Antibiotics azactam, flagyl, vacno Allergies: Coded Allergies: adhesive (Unverified Allergy, Severe, 11/19/16) codeine (Unverified Allergy, Severe, N/V, 11/19/16) latex (Unverified Allergy, Severe, 11/19/16) propoxyphene (Unverified Allergy, Severe, NASUSEA VOMITING, 11/19/16) hydrocodone (Unverified Allergy, Intermediate, NAUSEA, 11/19/16) ceftriaxone (Unverified Allergy, Mild, Rash, 11/19/16) The patient had reddness on her chest after the Rocephin aspirin (Verified Allergy, Unknown, 04/16/17) Uncoded Allergies: HYDROCODONE (Adverse Reaction, Intermediate, 11/20/10) Objective . Vital Signs Date Time Temp Pulse Resp B/P (MAP) Pulse Ox O2 Delivery O2 Flow Rate FiO2 04/18/17 22:00 101 04/18/17 20:00 98.8 101 38 106/57 (73) 95 04/18/17 20:00 101 04/18/17 18:30 97 04/18/17 18:00 95 04/18/17 16:00 91 04/18/17 16:00 97.9 91 49 102/56 (71) 95 04/18/17 15:00 101 04/18/17 14:00 99 04/18/17 13:01 100 04/18/17 13:00 101 04/18/17 12:30 96 04/18/17 12:30 96 31 119/56 (77) 96 04/18/17 12:24 99 04/18/17 12:24 99 29 123/60 (81) 96 04/18/17 12:01 102 30 160/87 (111) 98 04/18/17 12:01 102 04/18/17 12:00 99 04/18/17 12:00 99 29 99 04/18/17 11:30 99 25 159/72 (101) 99 04/18/17 11:30 99 04/18/17 11:06 97 04/18/17 11:06 97 26 138/73 (94) 96 04/18/17 11:00 102 04/18/17 11:00 102 27 97 04/18/17 10:30 96 30 132/63 (86) 97 04/18/17 10:30 96 04/18/17 10:01 96 04/18/17 10:01 96 29 145/67 (93) 98 04/18/17 10:00 96 04/18/17 10:00 96 27 97 04/18/17 09:30 92 28 157/70 (99) 98 04/18/17 09:30 92 04/18/17 09:00 95 04/18/17 09:00 95 29 158/72 (100) 98 04/18/17 08:30 95 27 131/68 (89) 97 04/18/17 08:30 95 04/18/17 08:00 97.9 95 27 137/70 (92) 97 04/18/17 08:00 95 04/18/17 07:37 97 Nasal Cannula 2.00 04/18/17 06:00 90 04/18/17 04:00 86 04/18/17 04:00 97.9 86 30 158/71 (100) 98 04/18/17 00:00 97.8 85 34 150/70 (96) 96 04/18/17 00:00 85 04/18/17 04/18/17 04/19/17 15:00 23:00 07:00 Intake Total 100 ml 820 ml Output Total 900 ml Balance 100 ml -80 ml IV Total 100 ml 700 ml Other 120 ml Output Urine Total 500 ml Gastric Drainage Total 400 ml # Bowel Movements 1 . Laboratory Tests Test 04/17/17 03:22 04/18/17 06:04 04/18/17 12:35 04/18/17 17:15 White Blood Count 35.8 TH/MM3 19.3 TH/MM3 Red Blood Count 4.04 MIL/MM3 3.13 MIL/MM3 Hemoglobin 12.4 GM/DL 9.3 GM/DL 9.9 GM/DL 9.4 GM/DL Hematocrit 36.3 % 27.8 % 29.7 % 27.4 % Mean Corpuscular Volume 89.9 FL 88.9 FL Mean Corpuscular Hemoglobin 30.6 PG 29.6 PG Mean Corpuscular Hemoglobin Concent 34.0 % 33.3 % Red Cell Distribution Width 14.6 % 14.8 % Platelet Count 350 TH/MM3 251 TH/MM3 Mean Platelet Volume 7.1 FL 6.8 FL Neutrophils (%) (Auto) 96.1 % 95.5 % Lymphocytes (%) (Auto) 0.9 % 1.7 % Monocytes (%) (Auto) 2.9 % 2.5 % Eosinophils (%) (Auto) 0.0 % 0.0 % Basophils (%) (Auto) 0.1 % 0.3 % Neutrophils # (Auto) 34.4 TH/MM3 18.4 TH/MM3 Lymphocytes # (Auto) 0.3 TH/MM3 0.3 TH/MM3 Monocytes # (Auto) 1.0 TH/MM3 0.5 TH/MM3 Eosinophils # (Auto) 0.0 TH/MM3 0.0 TH/MM3 Basophils # (Auto) 0.0 TH/MM3 0.1 TH/MM3 CBC Comment AUTO DIFF AUTO DIFF Differential Total Cells Counted 100 100 Neutrophils % (Manual) 82 % 70 % Band Neutrophils % 16 % 22 % Monocytes % 2 % 4 % Neutrophils # (Manual) 35.1 TH/MM3 17.8 TH/MM3 Differential Comment FINAL DIFF MANUAL FINAL DIFF MANUAL Platelet Estimate NORMAL NORMAL Platelet Morphology Comment NORMAL NORMAL Red Cell Morphology Comment NORMAL Lymphocytes % 4 % Toxic Granulation 1+ [place] Cells 1+ Laboratory Tests Test 04/17/17 00:30 04/17/17 03:22 04/17/17 14:24 04/17/17 18:37 Lactic Acid Level 2.3 mmol/L 2.7 mmol/L 3.5 mmol/L Blood Urea Nitrogen 24 MG/DL 25 MG/DL Creatinine 1.09 MG/DL 0.88 MG/DL Random Glucose 138 MG/DL 134 MG/DL Total Protein 6.2 GM/DL 6.1 GM/DL Albumin 2.6 GM/DL 2.5 GM/DL Calcium Level 7.3 MG/DL 7.7 MG/DL Phosphorus Level 2.3 MG/DL Magnesium Level 1.7 MG/DL Alkaline Phosphatase 76 U/L 73 U/L Aspartate Amino Transf (AST/SGOT) 11 U/L 15 U/L Alanine Aminotransferase (ALT/SGPT) 14 U/L 17 U/L Total Bilirubin 0.6 MG/DL 0.6 MG/DL Sodium Level 133 MEQ/L 134 MEQ/L Potassium Level 4.1 MEQ/L 3.7 MEQ/L Chloride Level 102 MEQ/L 104 MEQ/L Carbon Dioxide Level 18.4 MEQ/L 18.2 MEQ/L Anion Gap 13 MEQ/L 12 MEQ/L Estimat Glomerular Filtration Rate 48 ML/MIN 62 ML/MIN Protein Corrected Calcium 7.8 MG/DL B-Type Natriuretic Peptide 117 PG/ML Test 04/17/17 23:09 04/18/17 06:04 04/18/17 10:00 04/18/17 21:33 Lactic Acid Level 2.8 mmol/L 1.9 mmol/L Blood Urea Nitrogen 26 MG/DL Creatinine 0.79 MG/DL Random Glucose 98 MG/DL Total Protein 5.8 GM/DL Albumin 3.4 GM/DL Calcium Level 7.6 MG/DL Phosphorus Level 1.1 MG/DL 3.4 MG/DL Alkaline Phosphatase 53 U/L Aspartate Amino Transf (AST/SGOT) 21 U/L Alanine Aminotransferase (ALT/SGPT) 15 U/L Total Bilirubin 0.7 MG/DL Sodium Level 133 MEQ/L Potassium Level 3.0 MEQ/L 4.3 MEQ/L Chloride Level 103 MEQ/L Carbon Dioxide Level 19.0 MEQ/L Anion Gap 11 MEQ/L Estimat Glomerular Filtration Rate 70 ML/MIN Lipase 71 U/L Magnesium Level 1.6 MG/DL Microbiology Date/Time Source Procedure Growth Status 04/16/17 06:40 Blood Peripheral Aerobic Blood Culture - Preliminary NO GROWTH IN 2 DAYS Resulted 04/16/17 06:40 Blood Peripheral Anaerobic Blood Culture - Preliminary NO GROWTH IN 2 DAYS Resulted 04/16/17 06:35 Blood Peripheral Aerobic Blood Culture - Preliminary NO GROWTH IN 2 DAYS Resulted 04/16/17 06:35 Blood Peripheral Anaerobic Blood Culture - Preliminary NO GROWTH IN 2 DAYS Resulted 04/17/17 17:48 Stool Stool - Final Norovirus Complete 04/16/17 08:13 Nasal Aspirate Influenza Types A,B Antigen (SHAUN) - Final Complete 04/17/17 14:00 Urine Catheterized Urine Legionella Antigen - Final PRESUMPTIVE NEGATIVE FOR LEGIONELLA P... Complete 04/17/17 14:00 Urine Catheterized Urine Streptococcus pneumoniae Antigen (M - Final PRESUMPTIVE NEGATIVE FOR STREPTOCOCCU... Complete 04/16/17 07:40 Urine Catheterized Urine Urine Culture - Final NO GROWTH IN 48 HOURS. Complete 04/16/17 00:00 Urine Catheterized Urine Streptococcus pneumoniae Antigen (M - Final PRESUMPTIVE NEGATIVE FOR STREPTOCOCCU... Complete Imaging Last Impressions Chest X-Ray 04/18/17 0600 Signed Impressions: Service Date/Time: Tuesday, April 18, 2017 04:03 - CONCLUSION: Pulmonary venous congestion. Otherwise no significant change compared to the prior study. Joseph Maxwell MD Abdomen X-Ray 04/18/17 0000 Signed Impressions: Service Date/Time: Tuesday, April 18, 2017 10:11 - CONCLUSION: 1. Slight interval worsening partial small bowel obstruction versus adynamic ileus. 2. NGT likely in the stomach. Unusual course likely due to moderate to large hiatal hernia. Tarik Kwon MD Head CT 04/16/17 0621 Signed Impressions: Service Date/Time: Sunday, April 16, 2017 08:09 - CONCLUSION: Cerebral atrophy and chronic ischemic small vessel vasculopathy. Raul Cevallos MD Abdomen/Pelvis CT 04/16/17 0000 Signed Impressions: Service Date/Time: Sunday, April 16, 2017 08:12 - CONCLUSION: 1. Multiple dilated small bowel loops greatest within the right mid abdomen with slight inflammatory changes. Partial obstruction cannot be excluded. 2. Resolution of previous identified abdominal rectus musculature hematomas. 3. Small amount of pelvic free fluid. 4. Bibasilar patchy infiltrates greater right lower lobe and more prominent on current study. 5. Diverticulosis without diverticulitis. Raul Cevallos MD Physical Exam CONSTITUTIONAL/GENERAL: This is an adequately nourished patient, in no apparent distress. TUBES/LINES/DRAINS: SKIN: No jaundice, rashes, or lesions. . Skin temperature appropriate. Not diaphoretic. HEAD: Atraumatic. Normocephalic. NECK: Trachea midline. Supple, nontender. CARDIOVASCULAR: Regular rate and rhythm without murmurs, gallops, or rubs. No JVD. Peripheral pulses symmetric. RESPIRATORY/CHEST: Symmetric, unlabored respirations. Clear to auscultation. Breath sounds equal bilaterally. No wheezes, rales, or rhonchi. GASTROINTESTINAL: Abdomen soft, non-tender, moderately distended. No hepato- splenomegaly, or palpable masses. No guarding. Bowel sounds hypoactive NGT to suction with more blood in it GENITOURINARY: Without palpable bladder distension. Esquivel catheter in place with dark yellow urine MUSCULOSKELETAL: Extremities without clubbing, cyanosis, or edema. No joint tenderness or effusion noted. No calf tenderness. No mottling or clubbing. LYMPHATICS: No palpable cervical or supraclavicular adenopathy. NEUROLOGICAL: lethargic. Follows PSYCHIATRIC: No obvious anxiety/depression. no apparent hallucinations or other psychotic thought process. Assessment & Plan Remarks Leukocytosis - improving Diarrhea 2/2 norovirus infection Ileus vs partial obstruction -ischemic bowel 2/2 low flow - c.diff negative - Repeat CT abd/pel with IV and/or oral contrast if clinically worse - will hold on for now - cont IV flagnick, marian, Yannick Sharma Alexandra A. MD Apr 18, 2017 23:20
[2017-04-19] VITALS (15 sets, daily range): BP systolic 71–129; BP diastolic 49–67; PULSE 100–114; RESP 28–61; TEMP 97.4–98.6; O2SAT 94–97
[2017-04-19] MEDS ORDERED: oxyCODONE/ACETAMINOPHEN 10 MG/325 MG TAB PO PRN (00:45)
[2017-04-19 01:38] LABS: HEMATOCRIT 31.7 % (35.0-46.0); HEMOGLOBIN 10.3 GM/DL (11.6-15.3)
[2017-04-19] MEDS: AZTREONAM INJ 2,000 MG in SODIUM CHLORIDE 0.9% INJ 100 ML IV SCH ×3 (01:50→18:29)
[2017-04-19] MEDS ORDERED: ACETAMINOPHEN 1000 MG/100 ML 100 ML IV ONE (03:45)
[2017-04-19] MEDS: CHLORHEXIDINE GLUCONATE 2 % 1 PACK (2 CLOTHS) TOP SCH (04:00)
--- NOTE | 2017-04-19 04:35 | RADRPT ---
EXAM DATE/TIME: 04/19/2017 03:36 [facility] COMPARISON: CHEST SINGLE AP, April 18, 2017, 4:03. INDICATIONS : Shortness of breath, possible pulmonary disease. MEDICAL HISTORY : Hiatal hernia. Gastroesophageal reflux disease. Hypertension. COPD SURGICAL HISTORY : Hysterectomy. ENCOUNTER: Subsequent ACUITY: 2 days PAIN SCORE: Non-responsive. LOCATION: Bilateral chest FINDINGS: There is improved aeration of the lung ibanez compared to the prior study. No new focal areas of pare nchymal consolidation. Heart size is stable. No significant pleural effusions. The NG tube is unchang ed in position. CONCLUSION: Improved aeration of both lung ibanez compared to the prior study. Joseph Maxwell MD on April 19, 2017 at 4:32 Board Certified Radiologist. This report was verified electronically.
[2017-04-19] MEDS: metroNIDAZOLE 500 MG INJ 100 ML IV SCH ×3 (04:57→20:33)
[2017-04-19 05:59] LABS: ALBUMIN 2.7 GM/DL (3.4-5.0); ALKALINE PHOSPHATASE 58 U/L (45-117); ALT (GPT) 19 U/L (10-53); AST (GOT) 42 U/L (15-37); BICARBONATE 14.3 MEQ/L (21.0-32.0); CALCIUM 7.7 MG/DL (8.5-10.1); CHLORIDE 109 MEQ/L (98-107); CREATININE 1.17 MG/DL (0.50-1.00); GLOMERULAR FILTRATION RATE 45 ML/MIN (>89); GLUCOSE,RANDOM 84 MG/DL (74-106); PHOSPHORUS 3.4 MG/DL (2.5-4.9); SODIUM (NA) 137 MEQ/L (136-145); TOTAL BILIRUBIN ADULT 0.6 MG/DL (0.2-1.0); TOTAL PROTEIN 5.9 GM/DL (6.4-8.2)
[2017-04-19 06:01] LABS: BLOOD UREA NITROGEN 38 MG/DL (7-18)
[2017-04-19 06:07] LABS: INTERNATIONAL NORMALIZED RATIO 2.2 RATIO; PROTHROMBIN TIME - PATIENT 22.6 SEC (9.8-11.6)
[2017-04-19 06:17] LABS: AUTOMATED NEUTROPHIL # 12.4 TH/MM3 (1.8-7.7); BASOPHIL % 0.1 % (0.0-2.0); EOSINOPHIL % 0.1 % (0.0-4.0); HEMATOCRIT 32.6 % (35.0-46.0); HEMOGLOBIN 11.2 GM/DL (11.6-15.3); LYMPH % 3.6 % (9.0-44.0); LYMPHOCYTE # 0.5 TH/MM3 (1.0-4.8); MEAN CELL VOLUME 89.5 FL (80.0-100.0); MEAN CORPUSCULAR HEMOGLOBIN 30.7 PG (27.0-34.0); MEAN CORPUSCULAR HGB CONC 34.3 % (32.0-36.0); MEAN PLATELET VOLUME 7.8 FL (7.0-11.0); MONO % 9.7 % (0.0-8.0); MONOCYTE # 1.4 TH/MM3 (0-0.9); NEUT % 86.5 % (16.0-70.0); PLATELET COUNT 266 TH/MM3 (150-450); RED BLOOD COUNT 3.65 MIL/MM3 (4.00-5.30); RED CELL DISTRIBUTION WIDTH 15.1 % (11.6-17.2); WHITE BLOOD COUNT 14.4 TH/MM3 (4.0-11.0)
[2017-04-19] MEDS: INSULIN ASPART SUPPLEMENTAL SCALE SQ SCH ×4 (08:52→20:37)
[2017-04-19] MEDS: AMIODARONE 200 MG TAB PO SCH (09:00)
[2017-04-19] MEDS: DIGOXIN 0.125 MG TAB PO SCH (09:00)
[2017-04-19 09:29] LABS: BANDS 11 % (0-6); LYMPHOCYTES 7 % (9-44); MONOCYTES 6 % (0-8); MYELOCYTES 1 % (0-0); NEUTROPHIL # MANUAL DIFF 12.5 TH/MM3 (1.8-7.7); POLYS (SEG NEUTROPHILS) 75 % (16-70)
[2017-04-19 09:30] LABS: ACANTHOCYTES 1+ (NORMAL); TOXIC GRANULATION 1+ (NORMAL)
[2017-04-19] MEDS: PANTOPRAZOLE SODIUM 40 MG VIAL IV PUSH SCH ×2 (09:51→20:32)
[2017-04-19] MEDS: SODIUM CHLORIDE 0.9% FLUSH 10 ML FLUSH IV FLUSH SCH ×2 (09:51→20:33)
[2017-04-19] MEDS: D5-1/2 NS + KCL 20 MEQ INJ 1,000 ML IV SCH (09:52)
[2017-04-19] MEDS: RESP: ALBUTEROL 2.5 MG/IPRATROPIUM 0.5 MG NEB (PRN) INH (11:03)
[2017-04-19] MEDS ORDERED: ALBUMIN 5% INJ 250 ML IV ONE ×2 (11:15→11:45)
[2017-04-19] MEDS: DOCUSATE SODIUM 50 MG/SENNA 8.6 MG TAB PO SCH ×2 (12:00→20:33)
[2017-04-19] MEDS: LACTULOSE SYRUP 20 GM/30 ML CUP PO SCH (12:00)
[2017-04-19] MEDS ORDERED: SODIUM BICARBONATE 8.4% INJ 50 MEQ/50 ML SYR ONE (12:04)
[2017-04-19] MEDS ORDERED: PHARMACY ORDERED LAB ONE (12:45)
[2017-04-19] MEDS ORDERED: PHENYLEPHRINE HCL 10 MG/ML VIAL ONE ×2 (12:54→12:55)
[2017-04-19] MEDS ORDERED: SODIUM BICARBONATE 8.4% INJ 150 MEQ in SODIUM CHLOR 0.9% 1000 ML INJ 850 ML IV SCH (13:00)
--- NOTE | 2017-04-19 14:07 | HHI.CCPN ---
Subjective Remarks/Hospital Course This is an 81-year-old female that presented to the ED , secondary to altered mental status. Per report from family at bedside, the patient has been feeling sick having generalized weakness for approximately 3 weeks. The patient reported having diarrhea 3-4 times per day. Per report from [facility], she was hypotensive on scene. The patient is lethargic and severely weak but does respond appropriately to questions. She complained of back pain and abdominal pain upon palpitation. She reports episodes of nausea and vomiting . Upon admission to the ED laboratory and imaging studies were performed. The patient was noted to have a significant leukocytosis suggestive bilateral lobe pneumonia on CT as well as dilated small bowel loops. Patient's INR was noted to be 7.1. Critical care medicine was consulted. Subjective: 04/17: Afebrile. Leukocytosis worsening. Lactic acid increased. ID consulted. Patient complained of continued abdominal pain. C. difficile pending .Patient removed NG tube will be replaced and continued on low intermittent wall suction. Patient continues with generalized malaise and weakness. General surgery also has been consulted and awaiting recommendations. She received vitamin K yesterday for supratherapeutic INR. INR this a.m. 1.7, plan to initiate heparin infusion in the event of possible surgical intervention, versus restarting Coumadin at this time for INR target of 2.0-3.0. 04/18: Patient seen by General surgery Dr. Alejandre yesterday. Heparin infusion/ anticoagulation held ,secondary to possible surgical intervention yesterday, if no improvement in condition overnight. Patient's leukocytosis resolving, lactate now within normal limits. Patient states she feels better today. NG tube was noted to have approximately 400 cc of bloody gastric output , this morning GI notified. Anticoagulation continues to be on hold. Famotidine discontinued , Protonix twice a day initiated. INR pending this a.m. Electrolytes being repleted. The patient continues with gentle hydration of 30 cc/an hour. 04/19: Labs returned last evening patient has Noro virus .Labs and chest x-ray improved this a.m. however patient decompensated this morning hypotensive, severely acidotic. Sodium bicarbonate 2 amp provided sodium bicarbonate drip initiated. Patient nonresponsive. Approximately 2 L gastric output through the NG tube noted just from this morning. Patient is obtunded, currently on nasal cannula. Family at bedside, discussion regarding intubation. and family has decided DNI and DNR. GI following Dr. Carlin to will meet with family regarding any other possible interventions are available. Dr. Carvajal to meet with family regarding any possible interventions are optimal for an improvement in her condition. Palliative care has also been consulted at the request of the family. Patient was placed on BiPAP. Central line ,arterial line emergently placed. 750cc bolus of 5% Albumin. Objective Vital Signs Date Time Temp Pulse Resp B/P (MAP) Pulse Ox O2 Delivery O2 Flow Rate FiO2 04/19/17 13:21 96 50 04/19/17 11:03 Nasal Cannula 3.00 04/19/17 10:00 103 04/19/17 08:00 97.7 44 88/56 (67) Intake and Output 04/19/17 04/19/17 04/20/17 08:00 16:00 00:00 Intake Total 200 ml Output Total 475 ml Balance -275 ml Result Diagram: 04/19/17 0520 04/19/17 0520 Other Results Last Impressions Chest X-Ray 04/19/17 0600 Signed Impressions: Service Date/Time: Wednesday, April 19, 2017 03:36 - CONCLUSION: Improved aeration of both lung ibanez compared to the prior study. Joseph Maxwell MD Abdomen X-Ray 04/18/17 0000 Signed Impressions: Service Date/Time: Tuesday, April 18, 2017 10:11 - CONCLUSION: 1. Slight interval worsening partial small bowel obstruction versus adynamic ileus. 2. NGT likely in the stomach. Unusual course likely due to moderate to large hiatal hernia. Tarik Kwon MD Head CT 04/16/17 0621 Signed Impressions: Service Date/Time: Sunday, April 16, 2017 08:09 - CONCLUSION: Cerebral atrophy and chronic ischemic small vessel vasculopathy. Raul Cevallos MD Abdomen/Pelvis CT 04/16/17 0000 Signed Impressions: Service Date/Time: Sunday, April 16, 2017 08:12 - CONCLUSION: 1. Multiple dilated small bowel loops greatest within the right mid abdomen with slight inflammatory changes. Partial obstruction cannot be excluded. 2. Resolution of previous identified abdominal rectus musculature hematomas. 3. Small amount of pelvic free fluid. 4. Bibasilar patchy infiltrates greater right lower lobe and more prominent on current study. 5. Diverticulosis without diverticulitis. Raul Cevallos MD Microbiology Date/Time Source Procedure Growth Status 04/17/17 17:48 Stool Stool - Final Norovirus Complete 04/17/17 14:00 Urine Catheterized Urine Legionella Antigen - Final PRESUMPTIVE NEGATIVE FOR LEGIONELLA P... Complete 04/17/17 14:00 Urine Catheterized Urine Streptococcus pneumoniae Antigen (M - Final PRESUMPTIVE NEGATIVE FOR STREPTOCOCCU... Complete Laboratory Tests Test 04/19/17 11:20 Blood Gas Puncture Site ART LINE Blood Gas Patient Temperature 98.6 Blood Gas HCO3 13 mmol/L (22-26) Blood Gas Base Excess -13.4 mmol/L (-2-2) Blood Gas Oxygen Saturation 92 % (90-100) Arterial Blood pH 7.19 (7.380-7.420) Arterial Blood Partial Pressure CO2 36 mmHg (38-42) Arterial Blood Partial Pressure O2 86 mmHg (61-120) Arterial Blood Oxygen Content 11.5 Vol % (12.0-20.0) Arterial Blood Carboxyhemoglobin 0.6 % (0-4) Arterial Blood Methemoglobin 1.4 % (0-2) Blood Gas Hemoglobin 8.8 G/DL (12.0-16.0) Oxygen Delivery Device NASAL CANNULA Blood Gas Liter Flow 3 L/M Imaging Last Impressions Chest X-Ray 04/19/17 0600 Signed Impressions: Service Date/Time: Wednesday, April 19, 2017 03:36 - CONCLUSION: Improved aeration of both lung ibanez compared to the prior study. Joseph Maxwell MD Abdomen X-Ray 04/18/17 0000 Signed Impressions: Service Date/Time: Tuesday, April 18, 2017 10:11 - CONCLUSION: 1. Slight interval worsening partial small bowel obstruction versus adynamic ileus. 2. NGT likely in the stomach. Unusual course likely due to moderate to large hiatal hernia. Tarik Kwon MD Head CT 04/16/17 0621 Signed Impressions: Service Date/Time: Sunday, April 16, 2017 08:09 - CONCLUSION: Cerebral atrophy and chronic ischemic small vessel vasculopathy. Raul Cevallos MD Abdomen/Pelvis CT 04/16/17 0000 Signed Impressions: Service Date/Time: Sunday, April 16, 2017 08:12 - CONCLUSION: 1. Multiple dilated small bowel loops greatest within the right mid abdomen with slight inflammatory changes. Partial obstruction cannot be excluded. 2. Resolution of previous identified abdominal rectus musculature hematomas. 3. Small amount of pelvic free fluid. 4. Bibasilar patchy infiltrates greater right lower lobe and more prominent on current study. 5. Diverticulosis without diverticulitis. Raul Cevallos MD Last Impressions Head CT 04/16/17620 Signed Impressions: Service Date/Time: Sunday, April 16, 2017 08:09 - CONCLUSION: Cerebral atrophy and chronic ischemic small vessel vasculopathy. Raul Cevallos MD Chest X-Ray 04/16/17620 Signed Impressions: Service Date/Time: Sunday, April 16, 2017 06:32 - CONCLUSION: 1. Cardiomegaly. No acute pulmonary disease. Sly West MD Abdomen/Pelvis CT 04/16/17 0000 Signed Impressions: Service Date/Time: Sunday, April 16, 2017 08:12 - CONCLUSION: 1. Multiple dilated small bowel loops greatest within the right mid abdomen with slight inflammatory changes. Partial obstruction cannot be excluded. 2. Resolution of previous identified abdominal rectus musculature hematomas. 3. Small amount of pelvic free fluid. 4. Bibasilar patchy infiltrates greater right lower lobe and more prominent on current study. 5. Diverticulosis without diverticulitis. Raul Cevallos MD Objective Remarks V/S BP 78/50( initially) HR 85 (Afib) GENERAL: This is a well-developed well-nourished critically ill elderly female with no acute distress. Dates pain resolved SKIN: Warm and dry. HEAD: Atraumatic. Normocephalic. EYES: Pupils equal and round. No scleral icterus. No injection or drainage. ENT: No nasal bleeding or discharge. Mucous membranes pink and dry. Currently 2 L nasal cannula NECK: Trachea midline. No JVD. CARDIOVASCULAR: Normal rate, regular rhythm. RESPIRATORY: No accessory muscle use. Coarse rhonchi throughout lung ibanez. Breath sounds equal bilaterally. GASTROINTESTINAL: Abdomen soft, non-tender, nondistended. No guarding. NGT to low intermittent wall suction noted than 1300 cc of heme positive gastric output in 10 minutes MUSCULOSKELETAL: Extremities without clubbing, cyanosis, or edema. No obvious deformities. NEUROLOGICAL: Extreme Lethargy. RASS -1. No gross focal/sensory deficits. Not following commands. Urinary Catheter: Yes Assessment to: Continue Esquivel insert reason: ICU Pt Getting Diuretics Vascular Central Line Catheter: Yes Date of Insertion: Apr 19, 2017 Date of Removal: Apr 19, 2017 Line: Central Venous Catheter Side: Left Location: Femoral Reason for Continuation Administration of medications A/P Assessment and Plan This is an 81-year-old female that initially presented with abdominal pain, suggestive of partial small bowel obstruction, now with confirmed Norovirus, dehydration and hemodynamic instability. Plan by systems: Neurologic: Toxic encephalopathy-metabolic 2/2 sepsis Chronic back pain Neurochecks per ICU protocol Avoid long-acting sedatives Hold Soma, temazepam patient's home medications Acute change in status GCS 12, lethargic. Opening eyes spontaneously Respiratory: COPD Probable community-acquired pneumonia Pulmonary edema-resolved Maintain O2 sat greater than 92% Begin BiPAP Duo nebs every 4 hours when necessary for wheezing 04/18 Chest [id number] vascular congestion 04/16 CT- B/L lower lobe pneumonia 04/19-ABG 7.19/35/85// ( 2 A of sodium bicarbonate IV push followed by sodium bicarbonate infusion) F/U Repeat ABG Chest x-rays and ABGs when clinically indicated DNI per patient and family request- supportive care Cardiovascular: Chronic Atrial fibrillation-rate controlled Digoxin toxicity-resolved Coronary artery disease Cardiomegaly Hold Coumadin noted heme positive gastric secretions on 04/18 Trend INR-patient now with GI bleed all anticoagulation on hold 04/16 Initial digoxin level 2.3 ->0.7 on 04/18. Digoxin home medication reinitiated 0.125 mg/day continue to monitor level 04/18 Echo-ejection fraction is 55-60%. No RWMA Renal: AMBER 2/2 sepsis Insert Esquivel -- Strict I/Os FEN/GI: Abdominal pain-resolved Possible small bowel obstruction versus ileus Diverticulosis GERD Moderate hiatal hernia Electrolyte derangement GI bleed Norovirus Severe metabolic acidosis Maintain NPO status except for medications 04/19-NG tube to LIWS -gastric output greater than 1300 cc Zofran for nausea GI prophylaxis-Protonix 40 mg BID GI following- Dr. Carlin 04/17 C. difficile [id number] results Monitor BMP Sodium bicarbonate infusion @ 42cc/hr Heme/ID: Severe sepsis Bandemia Leukocytosis Lactic acidemia Mild protein calorie malnutrition Probable CAP Possible UTI Supratherapeutic INR-resolved Norovirus Vitamin K 10 mg IVPB now- INR 7.1 Trend INR 1.7, hold all anticoagulation in the setting of GI bleed Monitor CBC, and INR 04/16 Patient received Atrezonam 2 g and azithromycin IV 100 mg in the ED 04/16 blood and urine cultures-Norovirus 04/17 Pneumococcal urine antigen- negative 04/17 empiric antibiotics Flagyl 500 mg every 8 hours, Atrezonam 2 g every 8 hours and Vancomycin per pharmacy dosing ID following-Dr. Victoria Initial lactate 4.7, bands 11% F/U C. difficile PCR Endocrine: Glucose monitoring per ICU protocol. Low dose regimen -- SSI Prophylaxis: GI Prophylaxis Famotidine BID DVT Prophylaxis -- SCDs No chemical DVT prophylaxis 2/2 GI Bleed Lines: Peripheral IVs 2 providing adequate access. Central line left femoral, art line right femoral Dispo: my billing statement This patient remains critically ill with one or more organ systems which are or may become a threat to life. I have spent in excess of 63 minutes discontinuously in the care and management of this patient. This time is exclusive of procedures, and includes, but is not limited to, evaluation of the patient, review of the medical record, discussions with family, consultants, nursing staff, or respiratory therapy, and documentation in the medical record. D/W Dr Raegan Dia and [employer] at bedside(Kirsten). 04/19 extensive discussion with family regarding decline in patient's medical status. Family requesting supportive care DNI/DNR. Discussed with general surgery Dr. Carvajal, Dr. Carlin conference with family, no further interventions supportive care only. Family has decided to consult hospice. Physician Maria E Iglesias MD Apr 19, 2017 14:07
--- NOTE | 2017-04-19 14:51 | HHI.PR ---
Subjective Subjective Notes Patient had significant clinical worsening early this morning with acidosis and abdominal distention. Objective Vitals/I&O Vital Signs Date Time Temp Pulse Resp B/P (MAP) Pulse Ox O2 Delivery O2 Flow Rate FiO2 04/19/17 13:21 96 50 04/19/17 12:00 98.1 100 61 129/66 (87) 04/19/17 11:03 Nasal Cannula 3.00 Labs Laboratory Tests Test 04/18/17 17:15 04/18/17 21:33 04/19/17 01:26 04/19/17 05:20 Hemoglobin 9.4 10.3 11.2 Hematocrit 27.4 31.7 32.6 Potassium Level 4.3 3.5 Phosphorus Level 3.4 3.4 White Blood Count 14.4 Red Blood Count 3.65 Mean Corpuscular Volume 89.5 Mean Corpuscular Hemoglobin 30.7 Mean Corpuscular Hemoglobin Concent 34.3 Red Cell Distribution Width 15.1 Platelet Count 266 Mean Platelet Volume 7.8 Neutrophils (%) (Auto) 86.5 Lymphocytes (%) (Auto) 3.6 Monocytes (%) (Auto) 9.7 Eosinophils (%) (Auto) 0.1 Basophils (%) (Auto) 0.1 Neutrophils # (Auto) 12.4 Lymphocytes # (Auto) 0.5 Monocytes # (Auto) 1.4 Eosinophils # (Auto) 0.0 Basophils # (Auto) 0.0 CBC Comment AUTO DIFF Differential Total Cells Counted 100 Neutrophils % (Manual) 75 Band Neutrophils % 11 Lymphocytes % 7 Monocytes % 6 Neutrophils # (Manual) 12.5 Myelocytes 1 Differential Comment FINAL DIFF MANUAL Toxic Granulation 1+ Platelet Estimate NORMAL Platelet Morphology Comment NORMAL Acanthocytes 1+ Hematology Comments Prothrombin Time 22.6 Prothromb Time International Ratio 2.2 Blood Urea Nitrogen 38 Creatinine 1.17 Random Glucose 84 Total Protein 5.9 Albumin 2.7 Calcium Level 7.7 Magnesium Level 2.0 Alkaline Phosphatase 58 Aspartate Amino Transf (AST/SGOT) 42 Alanine Aminotransferase (ALT/SGPT) 19 Total Bilirubin 0.6 Sodium Level 137 Chloride Level 109 Carbon Dioxide Level 14.3 Anion Gap 14 Estimat Glomerular Filtration Rate 45 Test 1/13/18 11:20 Blood Gas Puncture Site ART LINE Blood Gas Patient Temperature 98.6 Blood Gas HCO3 13 Blood Gas Base Excess -13.4 Blood Gas Oxygen Saturation 92 Arterial Blood pH 7.19 Arterial Blood Partial Pressure CO2 36 Arterial Blood Partial Pressure O2 86 Arterial Blood Oxygen Content 11.5 Arterial Blood Carboxyhemoglobin 0.6 Arterial Blood Methemoglobin 1.4 Blood Gas Hemoglobin 8.8 Oxygen Delivery Device NASAL CANNULA Blood Gas Liter Flow 3 Date/Time Source Procedure Growth Status 04/16/17 06:40 Blood Peripheral Aerobic Blood Culture - Preliminary NO GROWTH IN 3 DAYS Resulted 04/16/17 06:40 Blood Peripheral Anaerobic Blood Culture - Preliminary NO GROWTH IN 3 DAYS Resulted 04/17/17 17:48 Stool Stool - Final Norovirus Complete 04/16/17 08:13 Nasal Aspirate Influenza Types A,B Antigen (SHAUN) - Final Complete 04/17/17 14:00 Urine Catheterized Urine Legionella Antigen - Final PRESUMPTIVE NEGATIVE FOR LEGIONELLA P... Complete 04/17/17 14:00 Urine Catheterized Urine Streptococcus pneumoniae Antigen (M - Final PRESUMPTIVE NEGATIVE FOR STREPTOCOCCU... Complete Lungs: Clear Abdomen: Other (Distended, quiet) A/P Assessment and Plan Patient now minimally responsive and acidotic New finding; patient is Marni virus positive; this explains etiology of nausea/ emesis/dehydration/AMBER/sepsis syndrome Surgical intervention not likely to improve her condition, as a focal abnormality not likely GI feels EGD not likely to help Family wishes DNR/DNI; will continue to follow. Jn Carvajal MD Apr 19, 2017 14:51
--- NOTE | 2017-04-19 14:53 | PD.PROCEDR ---
Central Line Procedure REASON FOR PROCEDURE Central venous access PROCEDURE PERFORMED Central line placement: Left femoral vein CONSENT Informed consent for procedure was obtained emergently from son. The risks and benefits of the procedure were discussed to include but limited to bleeding, clot formation, infection, and even . ANESTHESIA Local injection of 1% Lidocaine DESCRIPTION OF THE PROCEDURE The patient was placed in supine, mild Trendelenburg position. The area was exposed and cleansed with ChloraPrep, times two. Large sterile drape was used to cover the patient, with the site exposed, under sterile conditions including cap, face mask, sterile gown, and sterile gloves. On single attempt, the introducer needle was inserted with negative pressure in syringe and venous flash was obtained. The guide wire was then advanced without any restriction and the needle was removed. The dilator was used without any complications. Using Seldinger technique the 7 Turkish catheter was advanced over the guide wire to a depth of centimeters. The guide wire was removed. All ports were aspirated with dark venous blood return and flushed easily with sterile saline. All ports were capped. Antibiotic disc was placed around central line at puncture site. The central line was secured to the skin with two interrupted 2.0 silk sutures. The area was bandaged with sterile see-through central line bandage. RADIOLOGICAL DATA Ultrasound guidance was used to locate left femoral vein. Doppler/color flow was used to confirm venous flow. COMPLICATIONS: No apparent complications ESTIMATED BLOOD LOSS: Less than 1 cc. Maria E Vargas MD Apr 19, 2017 14:53
--- NOTE | 2017-04-19 14:55 | PD.PROCEDR ---
Procedure Note Procedure Procedure: Arterial Line Placement Right femoral Diagnosis: Hemodynamic instability, nor rotavirus Indications: None Consent: Emergently obtained from the patient's son Description of the Procedure: The right femoral was prepped and draped sterilely. 1% lidocaine was used for local anesthesia. The pulse was located and a needle was advanced into the artery. A 20-gauge gauge, 16Fcatheter was advanced into the artery using a modified Seldinger technique. The catheter was sutured to the skin and a sterile dressing was applied. The catheter was connected to a pressure transducer and an arterial waveform was noted. There were no immediate complications noted. There was minimal EBL. I personally performed the procedure. Maria E Vargas MD Apr 19, 2017 14:55
[2017-04-19 16:41] LABS: HEMATOCRIT 21.7 % (35.0-46.0)
[2017-04-19] MEDS ORDERED: PHENYLEPHRINE INJ 40 MG in DEXTROSE 5% IN WATE 500 ML INJ 496 ML IV PRN ×2 (16:45)
[2017-04-19] MEDS ORDERED: TERBUTALINE INJ 1 MG/ML AMP SQ PRN (16:45)
[2017-04-19 16:52] LABS: HEMOGLOBIN 7.6 GM/DL (11.6-15.3)
--- NOTE | 2017-04-19 17:08 | HHI.GIFU ---
GI Follow-up Note Consult Follow-up Subjective: Patient laying in bed on C=PAP .Stool studies positive for norovirus .Today she decompensated-had increase in gastric outp, had increased abdominal distension, acidotic. Possible ischemic bowel, ileus/obstruction Objective: PHYSICAL EXAMINATION: Vitals signs stable No fever Vital Signs Date Time Temp Pulse Resp B/P (MAP) Pulse Ox O2 Delivery O2 Flow Rate FiO2 04/19/17 16:00 97.6 114 39 97/54 (68) 97 71/67 (68) 04/19/17 13:21 96 50 04/19/17 12:00 98.1 100 61 129/66 (87) 97 04/19/17 11:03 96 Nasal Cannula 3.00 04/19/17 10:00 103 HEENT: Pupils round and reactive to light; normocephalic; atraumatic; no jaundice. Throat is clear. NECK: Neck is supple, no JVD, no lymphadenopathy. CHEST: Chest is clear to auscultation and percussion. CARDIAC: Regular rate and rhythm with no murmur gallop or rubs. ABDOMEN: Soft, distended, tender; no hepatosplenomegaly; bowel sounds are present in all four quadrants, diminished EXTREMITIES: No clubbing, cyanosis, or edema. SKIN: Normal; no rash; no jaundice. 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 Available Data (labs, X- Rays, Procedues) : Laboratory Tests Test 04/17/17 18:37 04/17/17 23:09 04/18/17 06:04 04/18/17 10:00 Lactic Acid Level 3.5 mmol/L 2.8 mmol/L 1.9 mmol/L White Blood Count 19.3 TH/MM3 Red Blood Count 3.13 MIL/MM3 Hemoglobin 9.3 GM/DL Hematocrit 27.8 % Mean Corpuscular Volume 88.9 FL Mean Corpuscular Hemoglobin 29.6 PG Mean Corpuscular Hemoglobin Concent 33.3 % Red Cell Distribution Width 14.8 % Platelet Count 251 TH/MM3 Mean Platelet Volume 6.8 FL Neutrophils (%) (Auto) 95.5 % Lymphocytes (%) (Auto) 1.7 % Monocytes (%) (Auto) 2.5 % Eosinophils (%) (Auto) 0.0 % Basophils (%) (Auto) 0.3 % Neutrophils # (Auto) 18.4 TH/MM3 Lymphocytes # (Auto) 0.3 TH/MM3 Monocytes # (Auto) 0.5 TH/MM3 Eosinophils # (Auto) 0.0 TH/MM3 Basophils # (Auto) 0.1 TH/MM3 CBC Comment AUTO DIFF Differential Total Cells Counted 100 Neutrophils % (Manual) 70 % Band Neutrophils % 22 % Lymphocytes % 4 % Monocytes % 4 % Neutrophils # (Manual) 17.8 TH/MM3 Differential Comment FINAL DIFF MANUAL Toxic Granulation 1+ Platelet Estimate NORMAL Platelet Morphology Comment NORMAL [place] Cells 1+ Blood Urea Nitrogen 26 MG/DL Creatinine 0.79 MG/DL Random Glucose 98 MG/DL Total Protein 5.8 GM/DL Albumin 3.4 GM/DL Calcium Level 7.6 MG/DL Phosphorus Level 1.1 MG/DL Alkaline Phosphatase 53 U/L Aspartate Amino Transf (AST/SGOT) 21 U/L Alanine Aminotransferase (ALT/SGPT) 15 U/L Total Bilirubin 0.7 MG/DL Sodium Level 133 MEQ/L Potassium Level 3.0 MEQ/L Chloride Level 103 MEQ/L Carbon Dioxide Level 19.0 MEQ/L Anion Gap 11 MEQ/L Estimat Glomerular Filtration Rate 70 ML/MIN Lipase 71 U/L Digoxin Level 0.7 NG/ML Prothrombin Time 18.4 SEC Prothromb Time International Ratio 1.8 RATIO Magnesium Level 1.6 MG/DL Test 04/18/17 12:35 04/18/17 17:15 04/18/17 21:33 04/19/17 01:26 Hemoglobin 9.9 GM/DL 9.4 GM/DL 10.3 GM/DL Hematocrit 29.7 % 27.4 % 31.7 % Potassium Level 4.3 MEQ/L Phosphorus Level 3.4 MG/DL Test 04/19/17 05:20 04/19/17 11:20 04/19/17 14:25 04/19/17 16:00 White Blood Count 14.4 TH/MM3 Red Blood Count 3.65 MIL/MM3 Hemoglobin 11.2 GM/DL 7.6 GM/DL Hematocrit 32.6 % 21.7 % Mean Corpuscular Volume 89.5 FL Mean Corpuscular Hemoglobin 30.7 PG Mean Corpuscular Hemoglobin Concent 34.3 % Red Cell Distribution Width 15.1 % Platelet Count 266 TH/MM3 Mean Platelet Volume 7.8 FL Neutrophils (%) (Auto) 86.5 % Lymphocytes (%) (Auto) 3.6 % Monocytes (%) (Auto) 9.7 % Eosinophils (%) (Auto) 0.1 % Basophils (%) (Auto) 0.1 % Neutrophils # (Auto) 12.4 TH/MM3 Lymphocytes # (Auto) 0.5 TH/MM3 Monocytes # (Auto) 1.4 TH/MM3 Eosinophils # (Auto) 0.0 TH/MM3 Basophils # (Auto) 0.0 TH/MM3 CBC Comment AUTO DIFF Differential Total Cells Counted 100 Neutrophils % (Manual) 75 % Band Neutrophils % 11 % Lymphocytes % 7 % Monocytes % 6 % Neutrophils # (Manual) 12.5 TH/MM3 Myelocytes 1 % Differential Comment FINAL DIFF MANUAL Toxic Granulation 1+ Platelet Estimate NORMAL Platelet Morphology Comment NORMAL Acanthocytes 1+ Hematology Comments Prothrombin Time 22.6 SEC Prothromb Time International Ratio 2.2 RATIO Blood Urea Nitrogen 38 MG/DL Creatinine 1.17 MG/DL Random Glucose 84 MG/DL Total Protein 5.9 GM/DL Albumin 2.7 GM/DL Calcium Level 7.7 MG/DL Phosphorus Level 3.4 MG/DL Magnesium Level 2.0 MG/DL Alkaline Phosphatase 58 U/L Aspartate Amino Transf (AST/SGOT) 42 U/L Alanine Aminotransferase (ALT/SGPT) 19 U/L Total Bilirubin 0.6 MG/DL Sodium Level 137 MEQ/L Potassium Level 3.5 MEQ/L Chloride Level 109 MEQ/L Carbon Dioxide Level 14.3 MEQ/L Anion Gap 14 MEQ/L Estimat Glomerular Filtration Rate 45 ML/MIN Blood Gas Puncture Site ART LINE ART LINE Blood Gas Patient Temperature 98.6 98.6 Blood Gas HCO3 13 mmol/L 17 mmol/L Blood Gas Base Excess -13.4 mmol/L -7.8 mmol/L Blood Gas Oxygen Saturation 92 % 93 % Arterial Blood pH 7.19 7.35 Arterial Blood Partial Pressure CO2 36 mmHg 31 mmHg Arterial Blood Partial Pressure O2 86 mmHg 81 mmHg Arterial Blood Oxygen Content 11.5 Vol % 12.0 Vol % Arterial Blood Carboxyhemoglobin 0.6 % 0.8 % Arterial Blood Methemoglobin 1.4 % 1.4 % Blood Gas Hemoglobin 8.8 G/DL 9.1 G/DL Oxygen Delivery Device NASAL CANNULA BiPAP Blood Gas Liter Flow 3 L/M ASSESSMENT/PLAN: Sepsis-secondary Norovirus abdominal distension- ileus vs SBO -suspect SBO- possible ischemic bowel drop in hb possible some degree of gi bleeding - no active bleeding at thsi time -endoscopy will not improve her condition or changes of survival discussed with family and consultants-agree with comfort care , hospice maybe - family to make final decision soon Recommendations supportive care ppi transfuse prn abdominal x-ray/ct abdomen and pelvis if further investigation requested by family-at this time on hold It was a pleasure seeing Viviane Elizalde. Thank you for this consult. Entered by: Brianna Little MD Apr 19, 2017 17:08
[2017-04-19 22:17] LABS: HEMATOCRIT 22.9 % (35.0-46.0); HEMOGLOBIN 7.7 GM/DL (11.6-15.3)
[2017-04-20] VITALS (9 sets, daily range): BP systolic 57–110; BP diastolic 34–71; PULSE 0–105; RESP 25–35; TEMP 97–97.6; O2SAT 92–100
[2017-04-20] MEDS: AZTREONAM INJ 2,000 MG in SODIUM CHLORIDE 0.9% INJ 100 ML IV SCH (02:16)
[2017-04-20] MEDS ORDERED: PHENYLEPHRINE HCL 160 MG/D5W 484 ML ADMIX IV PRN ×2 (03:00)
[2017-04-20 03:24] LABS: MEAN CELL VOLUME 90.4 FL (80.0-100.0); MEAN CORPUSCULAR HEMOGLOBIN 30.5 PG (27.0-34.0); MEAN CORPUSCULAR HGB CONC 33.8 % (32.0-36.0); MEAN PLATELET VOLUME 7.5 FL (7.0-11.0); PLATELET COUNT 196 TH/MM3 (150-450); RED BLOOD COUNT 2.31 MIL/MM3 (4.00-5.30); RED CELL DISTRIBUTION WIDTH 15.3 % (11.6-17.2); WHITE BLOOD COUNT 18.3 TH/MM3 (4.0-11.0)
[2017-04-20 03:29] LABS: HEMATOCRIT 20.8 % (35.0-46.0)
[2017-04-20 03:56] LABS: ALBUMIN 2.6 GM/DL (3.4-5.0); BICARBONATE 11.2 MEQ/L (21.0-32.0); CALCIUM 6.9 MG/DL (8.5-10.1); MAGNESIUM 2.5 MG/DL (1.5-2.5); PHOSPHORUS 6.6 MG/DL (2.5-4.9); RANDOM VANCOMYCIN 11.6 COMMENT; TOTAL BILIRUBIN ADULT 0.7 MG/DL (0.2-1.0)
[2017-04-20] MEDS: CHLORHEXIDINE GLUCONATE 2 % 1 PACK (2 CLOTHS) TOP SCH (04:00)
--- NOTE | 2017-04-20 04:47 | RADRPT ---
EXAM DATE/TIME: 04/20/2017 03:38 [facility] COMPARISON: CHEST SINGLE AP, April 19, 2017, 3:36. INDICATIONS : Shortness of breath, possible pulmonary disease. MEDICAL HISTORY : Hiatal hernia. Gastroesophageal reflux disease. Hypertension. COPD SURGICAL HISTORY : Hysterectomy. ENCOUNTER: Subsequent ACUITY: 3 days PAIN SCORE: Non-responsive. LOCATION: Bilateral chest FINDINGS: The NG tube is in the stomach. There is a mild infiltrate in the left lung base. The right lung remai ns grossly clear. Heart size is stable. No significant pulmonary effusions. No evidence of pneumothor ax. The bony structures are stable. CONCLUSION: Mild left lower lung infiltrate. Joseph Maxwell MD on April 20, 2017 at 4:44 Board Certified Radiologist. This report was verified electronically.
[2017-04-20 04:49] LABS: BANDS 18 % (0-6); CORRECTED NUCLEATED RBC 1 /100 WBC (0-0); LYMPHOCYTES 8 % (9-44); METAMYELOCYTES 3 % (0-1); MONOCYTES 6 % (0-8); NEUTROPHIL # MANUAL DIFF 15.7 TH/MM3 (1.8-7.7); NUCLEATED RED BLOOD CELL 1 (0-0); POLYS (SEG NEUTROPHILS) 65 % (16-70)
[2017-04-20 04:51] LABS: BURR CELLS 2+ (NORMAL)
[2017-04-20] MEDS: metroNIDAZOLE 500 MG INJ 100 ML IV SCH (05:02)
[2017-04-20] MEDS: LEVOTHYROXINE SODIUM 150 MCG TAB PO SCH (05:03)
[2017-04-20] MEDS ORDERED: SODIUM BICARBONATE 8.4% INJ 50 MEQ/50 ML SYR ONE (05:53)
[2017-04-20] MEDS ORDERED: SODIUM BICARBONATE 8.4% SOLN 50 MEQ/50 ML VIAL IV ONE (06:15)
[2017-04-20] MEDS ORDERED: LORazepam 2 MG/ML VIAL IV PUSH PRN (09:00)
[2017-04-20] MEDS ORDERED: MORPHINE SULFATE 4 MG/ML INJ IV PUSH PRN (09:00)
--- NOTE | 2017-04-20 09:13 | DEATH SUM ---
Pronouncement Date Pronounced : Apr 20, 2017 Time Of : 09:09 Pronouncement Called to pronounce of patient. Identified patient as Viviane Elizalde with wrist band MR# [id number]. Patient with no cardiac activity in 2 separate leads and no palpable/auscible cardiac activity. Patient with no spontaneous respirations, no corneal reflex or response to painful stimuli. Pupils fixed and dilated. Preliminary Cause of : Cardiac arrest Hussein Scherer MD Apr 20, 2017 09:13
--- NOTE | 2017-04-20 09:14 | HHI.DS ---
Summary Note Date of : Apr 20, 2017 Time Of : 09:09 Admission Date Apr 16, 2017 at 09:13 Admitting Diagnosis sepsis, bilateral pneumonia, lactic acidosis, acute renal failure, d Diagnosis at Time of : Brief History This is an 81-year-old female that presented to the ED , secondary to altered mental status. Per report from family at bedside, the patient has been feeling sick having generalized weakness for approximately 3 weeks. The patient reported having diarrhea 3-4 times per day. Per report from [facility], she was hypotensive on scene. The patient is lethargic and severely weak but does respond appropriately to questions. She complained of back pain and abdominal pain upon palpitation. She reports episodes of nausea and vomiting . Upon admission to the ED laboratory and imaging studies were performed. The patient was noted to have a significant leukocytosis suggestive bilateral lobe pneumonia on CT as well as dilated small bowel loops. Patient's INR was noted to be 7.1. Critical care medicine was consulted. History PFSH Past Medical History Arthritis: Yes Blood Disorders: No Heart Rhythm Problems: Yes (IRREGULAR) Cancer: No Cardiovascular Problems: Yes (Cardiac arrhythmia; CAD;PVD) High Cholesterol: Yes COPD: Yes Diabetes: No Diminished Hearing: No Endocrine: No Gastrointestinal Disorders: Yes GERD: Yes Genitourinary: No Headaches: Yes Hepatitis: No Hiatal Hernia: Yes Hypertension: Yes Immune Disorder: No Musculoskeletal: Yes Neurologic: No Psychiatric: No Reproductive: No Respiratory: Yes ?: Not Menopausal: Yes Past Surgical History Abdominal Surgery: Yes (appendectomy; surgical intervention for small bowel osbstruction) AICD: No Arteriovenous Shunt: No Body Medical Devices: LEFT BREAST LUMPECTOMY Eye Surgery: Yes (bilateral cataract removal) Gynecologic Surgery: Yes (partial hysterectomy) Hysterectomy: Yes (PARTIAL) Insulin Pump: No Joint Replacement: No Pacemaker: No Thoracic Surgery: Yes (T11 KYPHOPLASTY) Other Surgery: Yes (LEFT CAROTID ENDARECHTOMY) Social History Alcohol Use: No Tobacco Use: Yes (1/2 PPD) Substance Use: No Allergies-Medications Allergies-Medications (Allergen,Severity, Reaction): Coded Allergies: adhesive (Unverified Allergy, Severe, 11/19/16) codeine (Unverified Allergy, Severe, N/V, 11/19/16) latex (Unverified Allergy, Severe, 11/19/16) propoxyphene (Unverified Allergy, Severe, NASUSEA VOMITING, 11/19/16) hydrocodone (Unverified Allergy, Intermediate, NAUSEA, 11/19/16) ceftriaxone (Unverified Allergy, Mild, Rash, 11/19/16) The patient had reddness on her chest after the Rocephin Uncoded Allergies: HYDROCODONE (Adverse Reaction, Intermediate, 11/20/10) Reported Meds & Prescriptions CBC/BMP: 04/20/17 0300 04/20/17 0300 Significant Findings Laboratory Tests Test 04/17/17 14:24 04/17/17 18:37 04/17/17 23:09 04/18/17 06:04 Blood Urea Nitrogen 25 MG/DL (7-18) 26 MG/DL (7-18) Random Glucose 134 MG/DL (74-106) Total Protein 6.1 GM/DL (6.4-8.2) 5.8 GM/DL (6.4-8.2) Albumin 2.5 GM/DL (3.4-5.0) Calcium Level 7.7 MG/DL (8.5-10.1) 7.6 MG/DL (8.5-10.1) Sodium Level 134 MEQ/L (136-145) 133 MEQ/L (136-145) Carbon Dioxide Level 18.2 MEQ/L (21.0-32.0) 19.0 MEQ/L (21.0-32.0) Estimat Glomerular Filtration Rate 62 ML/MIN (>89) 70 ML/MIN (>89) Lactic Acid Level 3.5 mmol/L (0.4-2.0) 2.8 mmol/L (0.4-2.0) White Blood Count 19.3 TH/MM3 (4.0-11.0) Red Blood Count 3.13 MIL/MM3 (4.00-5.30) Hemoglobin 9.3 GM/DL (11.6-15.3) Hematocrit 27.8 % (35.0-46.0) Mean Platelet Volume 6.8 FL (7.0-11.0) Neutrophils (%) (Auto) 95.5 % (16.0-70.0) Lymphocytes (%) (Auto) 1.7 % (9.0-44.0) Neutrophils # (Auto) 18.4 TH/MM3 (1.8-7.7) Lymphocytes # (Auto) 0.3 TH/MM3 (1.0-4.8) Band Neutrophils % 22 % (0-6) Lymphocytes % 4 % (9-44) Neutrophils # (Manual) 17.8 TH/MM3 (1.8-7.7) Toxic Granulation 1+ (NORMAL) Pengilly Cells 1+ (NORMAL) Phosphorus Level 1.1 MG/DL (2.5-4.9) Potassium Level 3.0 MEQ/L (3.5-5.1) Lipase 71 U/L (73-393) Digoxin Level 0.7 NG/ML (0.8-2.0) Test 04/18/17 10:00 04/18/17 12:35 04/18/17 17:15 04/18/17 21:33 Prothrombin Time 18.4 SEC (9.8-11.6) Hemoglobin 9.9 GM/DL (11.6-15.3) 9.4 GM/DL (11.6-15.3) Hematocrit 29.7 % (35.0-46.0) 27.4 % (35.0-46.0) Test 04/19/17 01:26 04/19/17 05:20 04/19/17 11:20 04/19/17 14:25 Hemoglobin 10.3 GM/DL (11.6-15.3) 11.2 GM/DL (11.6-15.3) 7.6 GM/DL (11.6-15.3) Hematocrit 31.7 % (35.0-46.0) 32.6 % (35.0-46.0) 21.7 % (35.0-46.0) White Blood Count 14.4 TH/MM3 (4.0-11.0) Red Blood Count 3.65 MIL/MM3 (4.00-5.30) Neutrophils (%) (Auto) 86.5 % (16.0-70.0) Lymphocytes (%) (Auto) 3.6 % (9.0-44.0) Monocytes (%) (Auto) 9.7 % (0.0-8.0) Neutrophils # (Auto) 12.4 TH/MM3 (1.8-7.7) Lymphocytes # (Auto) 0.5 TH/MM3 (1.0-4.8) Monocytes # (Auto) 1.4 TH/MM3 (0-0.9) Neutrophils % (Manual) 75 % (16-70) Band Neutrophils % 11 % (0-6) Lymphocytes % 7 % (9-44) Neutrophils # (Manual) 12.5 TH/MM3 (1.8-7.7) Myelocytes 1 % (0-0) Toxic Granulation 1+ (NORMAL) Acanthocytes 1+ (NORMAL) Prothrombin Time 22.6 SEC (9.8-11.6) Blood Urea Nitrogen 38 MG/DL (7-18) Creatinine 1.17 MG/DL (0.50-1.00) Total Protein 5.9 GM/DL (6.4-8.2) Albumin 2.7 GM/DL (3.4-5.0) Calcium Level 7.7 MG/DL (8.5-10.1) Aspartate Amino Transf (AST/SGOT) 42 U/L (15-37) Chloride Level 109 MEQ/L (98-107) Carbon Dioxide Level 14.3 MEQ/L (21.0-32.0) Estimat Glomerular Filtration Rate 45 ML/MIN (>89) Blood Gas HCO3 13 mmol/L (22-26) Blood Gas Base Excess -13.4 mmol/L (-2-2) Arterial Blood pH 7.19 (7.380-7.420) Arterial Blood Partial Pressure CO2 36 mmHg (38-42) Arterial Blood Oxygen Content 11.5 Vol % (12.0-20.0) Blood Gas Hemoglobin 8.8 G/DL (12.0-16.0) Test 04/19/17 16:00 04/19/17 17:00 04/19/17 18:00 04/20/17 03:00 Blood Gas HCO3 17 mmol/L (22-26) 16 mmol/L (22-26) Blood Gas Base Excess -7.8 mmol/L (-2-2) -8.0 mmol/L (-2-2) Arterial Blood pH 7.35 (7.380-7.420) 7.37 (7.380-7.420) Arterial Blood Partial Pressure CO2 31 mmHg (38-42) 29 mmHg (38-42) Blood Gas Hemoglobin 9.1 G/DL (12.0-16.0) 9.0 G/DL (12.0-16.0) Arterial Blood Oxygen Content 11.8 Vol % (12.0-20.0) Hemoglobin 7.7 GM/DL (11.6-15.3) 7.0 GM/DL (11.6-15.3) Hematocrit 22.9 % (35.0-46.0) 20.8 % (35.0-46.0) White Blood Count 18.3 TH/MM3 (4.0-11.0) Red Blood Count 2.31 MIL/MM3 (4.00-5.30) Band Neutrophils % 18 % (0-6) Lymphocytes % 8 % (9-44) Neutrophils # (Manual) 15.7 TH/MM3 (1.8-7.7) Metamyelocytes 3 % (0-1) Nucleated Red Blood Cells 1 /100 WBC (0-0) Pengilly Cells 2+ (NORMAL) Blood Urea Nitrogen 54 MG/DL (7-18) Creatinine 2.00 MG/DL (0.50-1.00) Random Glucose 57 MG/DL (74-106) Total Protein 5.0 GM/DL (6.4-8.2) Albumin 2.6 GM/DL (3.4-5.0) Calcium Level 6.9 MG/DL (8.5-10.1) Phosphorus Level 6.6 MG/DL (2.5-4.9) Aspartate Amino Transf (AST/SGOT) 110 U/L (15-37) Chloride Level 110 MEQ/L (98-107) Carbon Dioxide Level 11.2 MEQ/L (21.0-32.0) Anion Gap 22 MEQ/L (5-15) Estimat Glomerular Filtration Rate 24 ML/MIN (>89) Protein Corrected Calcium 8.0 MG/DL (8.5-10.1) Test 04/20/17 05:13 Blood Gas HCO3 8 mmol/L (22-26) Blood Gas Base Excess -20.4 mmol/L (-2-2) Blood Gas Oxygen Saturation 88 % (90-100) Arterial Blood pH 7.07 (7.380-7.420) Arterial Blood Partial Pressure CO2 28 mmHg (38-42) Arterial Blood Oxygen Content 8.5 Vol % (12.0-20.0) Blood Gas Hemoglobin 6.7 G/DL (12.0-16.0) Imaging Last Impressions Chest X-Ray 04/19/17 0600 Signed Impressions: Service Date/Time: Wednesday, April 19, 2017 03:36 - CONCLUSION: Improved aeration of both lung ibanez compared to the prior study. Joseph Maxwell MD Abdomen X-Ray 04/18/17 0000 Signed Impressions: Service Date/Time: Tuesday, April 18, 2017 10:11 - CONCLUSION: 1. Slight interval worsening partial small bowel obstruction versus adynamic ileus. 2. NGT likely in the stomach. Unusual course likely due to moderate to large hiatal hernia. Tarik Kwon MD Head CT 04/16/17620 Signed Impressions: Service Date/Time: Sunday, April 16, 2017 08:09 - CONCLUSION: Cerebral atrophy and chronic ischemic small vessel vasculopathy. Raul Cevallos MD Abdomen/Pelvis CT 04/16/17 0000 Signed Impressions: Service Date/Time: Sunday, April 16, 2017 08:12 - CONCLUSION: 1. Multiple dilated small bowel loops greatest within the right mid abdomen with slight inflammatory changes. Partial obstruction cannot be excluded. 2. Resolution of previous identified abdominal rectus musculature hematomas. 3. Small amount of pelvic free fluid. 4. Bibasilar patchy infiltrates greater right lower lobe and more prominent on current study. 5. Diverticulosis without diverticulitis. Raul Cevallos MD Last Impressions Head CT 04/16/17620 Signed Impressions: Service Date/Time: Sunday, April 16, 2017 08:09 - CONCLUSION: Cerebral atrophy and chronic ischemic small vessel vasculopathy. Raul Cevallos MD Chest X-Ray 04/16/17620 Signed Impressions: Service Date/Time: Sunday, April 16, 2017 06:32 - CONCLUSION: 1. Cardiomegaly. No acute pulmonary disease. Sly West MD Abdomen/Pelvis CT 04/16/17 0000 Signed Impressions: Service Date/Time: Sunday, April 16, 2017 08:12 - CONCLUSION: 1. Multiple dilated small bowel loops greatest within the right mid abdomen with slight inflammatory changes. Partial obstruction cannot be excluded. 2. Resolution of previous identified abdominal rectus musculature hematomas. 3. Small amount of pelvic free fluid. 4. Bibasilar patchy infiltrates greater right lower lobe and more prominent on current study. 5. Diverticulosis without diverticulitis. Raul Cevallos MD Hospital Course This is an 81-year-old female that presented to the ED , secondary to altered mental status. Per report from family at bedside, the patient has been feeling sick having generalized weakness for approximately 3 weeks. The patient reported having diarrhea 3-4 times per day. Per report from [facility], she was hypotensive on scene. The patient is lethargic and severely weak but does respond appropriately to questions. She complained of back pain and abdominal pain upon palpitation. She reports episodes of nausea and vomiting . Upon admission to the ED laboratory and imaging studies were performed. The patient was noted to have a significant leukocytosis suggestive bilateral lobe pneumonia on CT as well as dilated small bowel loops. Patient's INR was noted to be 7.1. Critical care medicine was consulted. Subjective: 04/17: Afebrile. Leukocytosis worsening. Lactic acid increased. ID consulted. Patient complained of continued abdominal pain. C. difficile pending .Patient removed NG tube will be replaced and continued on low intermittent wall suction. Patient continues with generalized malaise and weakness. General surgery also has been consulted and awaiting recommendations. She received vitamin K yesterday for supratherapeutic INR. INR this a.m. 1.7, plan to initiate heparin infusion in the event of possible surgical intervention, versus restarting Coumadin at this time for INR target of 2.0-3.0. 04/18: Patient seen by General surgery Dr. Alejandre yesterday. Heparin infusion/ anticoagulation held ,secondary to possible surgical intervention yesterday, if no improvement in condition overnight. Patient's leukocytosis resolving, lactate now within normal limits. Patient states she feels better today. NG tube was noted to have approximately 400 cc of bloody gastric output , this morning GI notified. Anticoagulation continues to be on hold. Famotidine discontinued , Protonix twice a day initiated. INR pending this a.m. Electrolytes being repleted. The patient continues with gentle hydration of 30 cc/an hour. 04/19: Labs returned last evening patient has Noro virus .Labs and chest x-ray improved this a.m. however patient decompensated this morning hypotensive, severely acidotic. Sodium bicarbonate 2 amp provided sodium bicarbonate drip initiated. Patient nonresponsive. Approximately 2 L gastric output through the NG tube noted just from this morning. Patient is obtunded, currently on nasal cannula. Family at bedside, discussion regarding intubation. and family has decided DNI and DNR. GI following Dr. Carlin to will meet with family regarding any other possible interventions are available. Dr. Carvajal to meet with family regarding any possible interventions are optimal for an improvement in her condition. Palliative care has also been consulted at the request of the family. Patient was placed on BiPAP. Central line ,arterial line emergently placed. 750cc bolus of 5% Albumin. 04/20: patient continued to decline. family elected to pursue comfort measures. patient was made comfortable and with her family at bedside at 09:09am. Hussein Scherer MD Apr 20, 2017 09:14
[2017-04-20] MEDS ORDERED: AZTREONAM 1,000 MG/NS 100 ML IV SCH ×2 (10:00)
[2017-04-20] MEDS ORDERED: VANCOMYCIN 1,000 MG/NS 250 ML IV ONE ×2 (10:00)
== END 2017-04-20 09:08 | disposition expired | DRG 871 ==
LOC: NEPC 06:18 → NEDA 09:13 → HIME 12:20
PROVIDERS: ADMIT Anesthesiology; ATTEND Anesthesiology
PROC: 0T9B70Z Drainage of Bladder with Drainage Device, Via Natural or Artificial Opening (ICD-10-PCS; principal; 2017-04-16)
PROC: 04HY32Z Insertion of Monitoring Device into Lower Artery, Percutaneous Approach (ICD-10-PCS; 2017-04-19)
PROC: 06HY33Z Insertion of Infusion Device into Lower Vein, Percutaneous Approach (ICD-10-PCS; 2017-04-19)
PROC: B54CZZA Ultrasonography of Left Lower Extremity Veins, Guidance (ICD-10-PCS; 2017-04-19)
PROC: 5A09357 Assistance with Respiratory Ventilation, Less than 24 Consecutive Hours, Continuous Positive Airway Pressure (ICD-10-PCS; 2017-04-19)
DX: A41.89 Other specified sepsis (principal); G92 Toxic encephalopathy; J18.9 Pneumonia, unspecified organism; N17.9 Acute kidney failure, unspecified; K55.9 Vascular disorder of intestine, unspecified; I11.0 Hypertensive heart disease with heart failure; Z51.5 Encounter for palliative care; K56.600 Partial intestinal obstruction, unspecified as to cause; J44.0 Chronic obstructive pulmonary disease with (acute) lower respiratory infection; I50.9 Heart failure, unspecified; E87.2 Acidosis; E44.1 Mild protein-calorie malnutrition; N39.0 Urinary tract infection, site not specified; A08.19 Acute gastroenteropathy due to other small round viruses; R65.20 Severe sepsis without septic shock; I48.2 Chronic atrial fibrillation; I25.10 Atherosclerotic heart disease of native coronary artery without angina pectoris; K57.90 Diverticulosis of intestine, part unspecified, without perforation or abscess without bleeding; K21.9 Gastro-esophageal reflux disease without esophagitis; M79.81 Nontraumatic hematoma of soft tissue; E83.39 Other disorders of phosphorus metabolism; K44.9 Diaphragmatic hernia without obstruction or gangrene; I73.9 Peripheral vascular disease, unspecified; E86.0 Dehydration; E87.6 Hypokalemia; T46.0X5A Adverse effect of cardiac-stimulant glycosides and drugs of similar action, initial encounter; T45.511A Poisoning by anticoagulants, accidental (unintentional), initial encounter; M54.9 Dorsalgia, unspecified; G89.29 Other chronic pain; M19.90 Unspecified osteoarthritis, unspecified site; Z66 Do not resuscitate; Z68.21 Body mass index [BMI] 21.0-21.9, adult; Z72.0 Tobacco use; Z79.01 Long term (current) use of anticoagulants; Z88.1 Allergy status to other antibiotic agents; Z88.5 Allergy status to narcotic agent; Z91.040 Latex allergy status
CPT/HCPCS: 36556; 36600; 51702; 70450; 71045; 74018; 74176; 76937; 80053; 80076; 80162; 80202; 81001; 82140; 82550; 82805; 82948; 83605; 83690; 83735; 83880; 84100; 84132; 84484; 85007; 85014; 85018; 85027; 85610; 85730; 86850; 86900; 86901; 87040; 87086; 87449; 87493; 87506; 87641; 87804; 93005; 93306; 94002; 94003; 94150; 94640; 94664; 96361; 96365; 96375; C9113; J0131; J0456; J1170; J1940; J2370; J2405; J3370; J3430; J3480; J7030; J7050; J7060; P9045; Q9963